=== PATIENT | female | born 1990 | race Caucasian/White ===

== ENCOUNTER → 2016-09-20 | Outpatient (CLI) | payer OTHER ==
[~2016-09-20] MED LIST: ACET-789 PO; ACET500C21 PO; ACYCLOVIR PO; ALPR0.25 PO; AMIT50TA3 PO; BUTA-234 PO; DIAZ-345 PO; ETONOGESTREL; GABA300C PO; LISD30CA PO; MECL-124 PO; OXYC-12 PO; OXYC-202 PO; PANT40SU PO; SUCR1TAB36 PO; TEMA30CA6 PO; TIZA4TAB55 PO; TOPI100T11 PO; TOPI200T8 PO; TRM50T PO; VALA500T4 PO; ZOLP10TA5 PO
--- NOTE | 2016-09-20 14:30 | Diagnostic Imaging Report ---
Transabdominal and transvaginal pelvic ultrasound. INDICATION: Pelvic pain. FINDINGS: The uterus is 6.6 x 3.4 x 3 cm. The endometrial stripe is 0.6 cm in thickness. There is an IUD in place and appears to be in good position. The right ovary is 1.9 x 3.6 x 2.2 cm. The left ovary is 3 x 2.2 x 1.8 cm. There is a 1.7 x 1.5 x 1.7 cm simple-appearing left adnexal cyst, questionably separate from the ovary or exophytic. It does not have a concerning solid component however. The right ovary demonstrates an arterial waveform and the left ovary demonstrates arterial and venous waveforms. No adnexal solid mass or significant fluid collection seen. IMPRESSION: Simple-appearing left adnexal cyst inferior to the left ovary could be an exophytic, ovarian, or extraovarian cyst. No suspicious solid component is seen. Dictated by: Dictated on workstation # [id number]
== END ==
LOC: RAD 13:29
PROVIDERS: ATTEND Nurse Practitioner Family
DX: R10.2 Pelvic and perineal pain (principal); N83.202 Unspecified ovarian cyst, left side; N89.8 Other specified noninflammatory disorders of vagina
CPT/HCPCS: 76830; 76856

== ENCOUNTER 2016-10-06 14:13 | Outpatient (CLI) | payer OTHER ==
[~2016-10-06] VITALS: Ht 165.1 cm; Wt 94.4 kg
[~2016-10-06 14:13] MED LIST changes: -OXYC-202 PO; -TOPI100T11 PO; -ZOLP10TA5 PO
[2016-10-06 14:19] VITALS: BP 120/72
[2016-10-06] MEDS ORDERED: ZOLP10TA5 PO (14:25)
[2016-10-06] MEDS ORDERED: TOPI100T11 PO (14:25)
[2016-10-06 15:27] LABS: BASOPHILS % (AUTO) 0 % (0-10); EOSINOPHILS # (AUTO) 0.2 10^3/uL (0.0-0.3); EOSINOPHILS % (AUTO) 2 % (0-10); LYMPHOCYTES # (AUTO) 2.9 X 10^3 (1.0-4.0); LYMPHOCYTES % (AUTO) 32 % (12-44); MEAN CORPUSCULAR HEMOGLOBIN 29 PG (25-34); MEAN CORPUSCULAR HGB CONC 33 G/DL (32-36); MEAN CORPUSCULAR VOLUME 88 FL (80-99); MEAN PLATELET VOLUME 10.1 FL (7.4-10.4); MONOCYTES # (AUTO) 0.6 X 10^3 (0.0-1.0); MONOCYTES % (AUTO) 7 % (0-12); NEUTROPHILS # (AUTO) 5.3 X 10^3 (1.8-7.8); NEUTROPHILS % (AUTO) 59 % (42-75); PLATELET COUNT 364 10^3/uL (130-400); RED BLOOD COUNT 4.52 10^6/uL (4.35-5.85)
[2016-10-13] MEDS ORDERED: OXYC-202 PO (10:32)
== END 2016-10-06 14:40 | disposition home or self-care (01) ==
LOC: PREOP 14:13
PROVIDERS: ATTEND Obstetrics & Gynecology
DX: Z01.812 Encounter for preprocedural laboratory examination (principal); Z11.2 Encounter for screening for other bacterial diseases; R10.2 Pelvic and perineal pain; D64.9 Anemia, unspecified
CPT/HCPCS: 36415; 85025; 87081

== ENCOUNTER 2016-10-13 10:36 | Day surgery (SDC) | payer OTHER ==
[~2016-10-13] VITALS: Ht 165.1 cm; Wt 94.4 kg
--- NOTE | 2016-10-13 10:29 | Progress Note-Pre Operative ---
Pre-Operative Progress Note H&P Reviewed The H&P was reviewed, patient examined and no changes noted. Date H&P Reviewed: Oct 13, 2016 Time H&P Reviewed: 10:29 Pre-Operative Diagnosis: chronic pelvic pain/left adnexal mass KELLEE TADEO MD Oct 13, 2016 10:29 am
--- NOTE | 2016-10-13 10:33 | Discharge Instructions ---
Discharge Instructions Discharge Medications New, Converted or Re-Newed RX: RX on Chart Patient Instructions Patient Instructions: as directed Return to The Hospital For: as directed Activity & Diet Discharge Diet: No Restrictions Activity as Tolerated: No Orders-Post D/C & Referrals Follow Up Appt: Call to make follow up appt. for patient in 1 weeks. Activity: Rest for 24 hours, than as tolerated. Wound Care: May remove Band-Aid tomorrow. Replace as desired. Keep incisions clean and dry. Wash daily with soap and water. Diet: As tolerated-Clear Liquids only if nauseated. May shower or tub bathe as desired. No driving for 24 hours, no alcoholic beverages for 24 hours, and nothing per vagina (no tampons, douching, or intercourse) for 2 weeks. Patient to return to the clinic as soon as possible for: Temperature greater than 101F, Severe Pain, Foul discharge from incision or vagina, Excessive Bleeding (more than a period). KELLEE TADEO MD Oct 13, 2016 10:33 am
[~2016-10-13 10:36] MED LIST changes: +D5 LR IV SOLUTION 1,000 ML IV SCH; +ESTROGENS CONJ IV 25 MG/5 ML (PREMARIN) VIAL IVP ONE; +MEPERIDINE (DEMEROL) INJ 100 MG/ML IM ONE; +ONDANSETRON 4 MG/2 ML (SDV) Z0FRAN IVP PRN; +OXYC-202 PO; +PROMETHAZINE INJ 25 MG/ML (PHENERGAN) AMP IM ONE; +TOPI100T11 PO; +ZOLP10TA5 PO; +oxyCODONE/APAP 10/325MG (PERCOCET 10) TABLET PO PRN
[2016-10-13] MEDS ORDERED: FAMOTIDINE 20MG/2ML IV (PEPCID) IV ONE (11:15)
[2016-10-13] MEDS ORDERED: ceFAZolin 1,000 MG (ANCEF) VIAL ONE (11:17)
[2016-10-13] MEDS ORDERED: NS (IVPB) 50 ML ONE (11:17)
[2016-10-13] MEDS ORDERED: ceFAZolin 1 GM/NS 50 ML IVPB IV ONE ×2 (11:45)
[2016-10-13] MEDS ORDERED: CATHETER FLUSH 10 ML SYR IV PRN (11:45)
[2016-10-13] MEDS: LACTATED RINGERS 1,000 ML IV PRN ×2 (11:52→12:50)
[2016-10-13] MEDS ORDERED: MIDAZOLAM 2 MG/2 ML (VERSED) VIAL ONE (12:05)
[2016-10-13] MEDS ORDERED: DEXAMETHASONE PF 10 MG/ML (DECADRON) VIAL ONE (12:05)
[2016-10-13] MEDS ORDERED: ROCURONIUM 50 MG/5 ML (ZEMURON) VIAL IV ONE (12:05)
[2016-10-13] MEDS ORDERED: ONDANSETRON 4 MG/2 ML (SDV) Z0FRAN ONE (12:05)
[2016-10-13] MEDS ORDERED: proPOfol 200 MG/20 ML (DIPRIVAN) VIAL IV ONE (12:05)
[2016-10-13] MEDS ORDERED: LACTATED RINGERS 1,000 ML IV ONE ×2 (12:05→13:04)
[2016-10-13] MEDS ORDERED: SEVOFLURANE (ULTANE) 15 ML INHAL SOLN ONE ×4 (12:05→13:04)
[2016-10-13] MEDS ORDERED: LIDOCAINE PF 2% 10 ML (XYLOCAINE) AMP ONE (12:05)
[2016-10-13] MEDS ORDERED: fentaNYL INJECTION 100 MCG/2 ML AMP ONE ×2 (12:06→13:32)
[2016-10-13] MEDS ORDERED: BUP/EPI 0.25% 1:200,000 (MARCAINE) 30 ML VIAL ONE (12:45)
[2016-10-13 13:16] VITALS: BP 102/67
[2016-10-13] MEDS ORDERED: GLYCOPYRROLATE 0.2 MG/ML (ROBINUL) 2 ML VIAL ONE (13:16)
[2016-10-13] MEDS ORDERED: NEOSTIGMINE (BLOXIVERZ ) 1 MG/1ML 10 ML VIAL ONE (13:16)
[2016-10-13] MEDS ORDERED: MEPERIDINE (DEMEROL) INJ 50 MG/ML IVP PRN (14:00)
[2016-10-13] MEDS ORDERED: ONDANSETRON 4 MG/2 ML (SDV) Z0FRAN IVP PRN (14:00)
[2016-10-13] MEDS: morphine INJ 10 MG/ML 1ML (SYR OR VIAL) IVP PRN ×2 (14:05→14:10)
[2016-10-13] MEDS ORDERED: WATER (STERILE) FOR INJECTION 10 ML ONE (14:06)
[2016-10-13] MEDS ORDERED: morphine INJ 10 MG/ML 1ML (SYR OR VIAL) ONE (14:06)
[2016-10-13] MEDS ORDERED: ESTROGENS CONJ IV 25 MG/5 ML (PREMARIN) VIAL ONE (14:06)
[2016-10-13 14:50] VITALS: BP 117/72
[2016-10-13 15:35] VITALS: BP 99/63
--- NOTE | 2016-10-17 10:56 | OPERATIVE REPORT ---
PROCEDURE PHYSICIAN: KELLEE TADEO DATE OF PROCEDURE: 10/13/2016 DATE OF DICTATION: 10/13/2016 PREOPERATIVE DIAGNOSIS: 1. Chronic pelvic pain. 2. Left pelvic mass. POSTOPERATIVE DIAGNOSES: 1. Chronic pelvic pain. 2. Left pelvic mass. 3. Endometriosis. 4. Bilateral distal fallopian tube cyst. OPERATIVE PROCEDURE: Laparoscopic bilateral tubal cystectomies and destruction of endometriosis and biopsy of right ovarian fossae. OPERATIVE DESCRIPTION: With the patient in the supine position, under satisfactory general anesthesia a speculum was placed in the vagina. The cervix was exposed and examined and it appeared normal. Manipulation of the uterus was accomplished with sponge stick in the vagina rather than placed in the uterine manipulator as the patient had a Copper T IUD in place. The patient was brought in low dorsal lithotomy position. The bladder had been drained with a straight catheter. And a 5 mm incision made in patient's left upper quadrant and 12 mm incision in the inferior margin of the umbilicus and two 5 mm incisions approximately 3 cm apart just superior to the symphysis pubis. Veress needle was placed through the left upper quadrant incision, correct placement confirmed with the water drop test. The abdomen insufflated 2.4 liters of carbon dioxide and the Veress needle was removed and a 5 mm Optiview laparoscopic port placed through the left upper quadrant incision. The patient placed in Trendelenburg. A 12 mm port was placed through the umbilical incision and two 5 mm ports was placed suprapubically. Two ports were used for retraction and exposure. The pelvis was examined. There was approximately 1 cm right distal fallopian tube cyst. There was approximately a 3 cm left distal fallopian tube cyst. This appeared to be actually torsing the fallopian tube at this point. I suspect that there was some intermittent torsion there. There was an Davon Master window on the right with a nodular lesion likely of endometriosis and right ovarian fossa. There were endometriosis implants otherwise in the right ovarian fossa in a couple on the left. The endometriosis implants were touched with electrocautery and destroyed and the nodular implant in the bottom in Davon Master window was elevated and dissected. The peritoneum was dissected free removing that piece of tissue to send to pathology. The right fallopian tube cyst was grasped and very careful and meticulously dissected free from the fallopian tube and brought out through the umbilical port and sent to pathology, labeled as right distal fallopian tube cyst. The left fallopian tube was examined. The fimbria of the left fallopian tube probably 50% was draped over the cyst and then incision was made in an area between the ovary and the fallopian tube and then dissection was carried under the peritoneum basically shelling the cyst out with minimal trauma to the fallopian tube. It is likely a small portion of fallopian tube fimbria were removed with a portion of this cyst as it was fairly extensively involved over the cyst. There was essentially no bleeding. That cyst was put in an Endobag and brought out through the umbilical incision. The pelvis was irrigated, examined for hemostasis. That being complete, with no further remaining abnormal pathology the procedure was terminated. The operative instruments were removed under direct vision as were the ports. The port sites had been infiltrated with 0.25% Marcaine with epinephrine prior to incision and port placement. The incisions were now closed with interrupted sutures of 3-0 nylon. The umbilical incision was closed with [id number] suture of 2-0 Vicryl prior to skin closure. A speculum replaced in the vagina. The cervix examined it was intact and appeared normal as the IUD string was present was approximately 2.5 cm in length just as it was prior to the procedure. Sponge and needle counts were correct at the end of procedure. Estimated blood loss for procedure was minimal. The patient tolerated the procedure well, and was transferred to recovery room in stable condition with plans for discharge home Job ID: [id number] Dictated Date: 10/13/2016 13:39:28 Senior Coldfusion Developer Date: 10/17/2016 10:19:21 / soledad
== END 2016-10-13 17:35 | disposition home or self-care (01) ==
LOC: SDC 10:36 → 4TH 15:03 → SDC 17:35
PROVIDERS: ATTEND Obstetrics & Gynecology
DX: N83.8 Other noninflammatory disorders of ovary, fallopian tube and broad ligament (principal); N80.1 Endometriosis of ovary
CPT/HCPCS: 84703; 88305

== ENCOUNTER 2017-06-08 02:27 | Emergency (ER) | payer OTHER ==
[~2017-06-08] VITALS: Ht 165.1 cm; Wt 108.0 kg
[~2017-06-08 02:27] MED LIST changes: -D5 LR IV SOLUTION 1,000 ML IV SCH; -ESTROGENS CONJ IV 25 MG/5 ML (PREMARIN) VIAL IVP ONE; -MEPERIDINE (DEMEROL) INJ 100 MG/ML IM ONE; -ONDANSETRON 4 MG/2 ML (SDV) Z0FRAN IVP PRN; -PROMETHAZINE INJ 25 MG/ML (PHENERGAN) AMP IM ONE; -oxyCODONE/APAP 10/325MG (PERCOCET 10) TABLET PO PRN
--- OUTSIDE RECORDS SUMMARY | 2017-06-08 02:34 | XMS REPORT ---
Author Author NEREYDA SMITH Organization [facility] Address [address] [place] [address] Care Team Providers Care Engineering Project Designer Name Role Phone MARY SMITHNETTE Unavailable PROBLEMS Type Condition ICD9-CM Code [id number] Code Onset Dates Condition Status SNOMED Code Problem Pain in unspecified shoulder M25.519 Active 05649808 Problem Chronic headaches R51 Active 344103336 Problem ADD (attention deficit disorder) F90.0 Active 195941430 Problem Carpal tunnel syndrome of right wrist G56.01 Active 50005922 Problem Mastodynia N64.4 Active 12326511 Problem Pseudotumor cerebri G93.2 Active 67422636 Problem Insomnia G47.00 Active 376540470 Problem Dysthymic disorder F34.1 Active 42515331 Problem Acute anxiety F41.9 Active 22747129 ALLERGIES Substance Reaction Event Type Date Status Imitrex Unknown Drug Allergy Jun, Active Toradol Unknown Drug Allergy Jun, Active SOCIAL HISTORY No smoking Hx information available PLAN OF CARE Activity Details Follow Up 3 Months Reason:chm VITAL SIGNS Height 65 in 2016-06-12 Weight 214 lbs 2016-06-12 Temperature 98.1 degrees Fahrenheit 2016-06-12 Heart Rate 78 bpm 2016-06-12 Respiratory Rate 18 2016-06-12 BMI 35.61 kg/m2 2016-06-12 Blood pressure systolic 120 mmHg 2016-06-12 Blood pressure diastolic 80 mmHg 2016-06-12 MEDICATIONS Medication Instructions Dosage Frequency Start Date End Date Duration Status Tylenol/Codeine #3 300-30 MG Orally every 6 hrs as needed 1 tablet as needed Active Fluticasone Propionate 50 MCG/ACT Nasally Once a day 1 spray in each nostril 24h Jun, 30 day(s) Active Baclofen 10 MG Orally Three times a day 1 tablet with food or milk 8h Active Topamax 100 MG Orally Twice a day 2 tablet by Oral route 1 time per day x 8 days, then 2 per day 12h Mar, Active Zyrtec Allergy 10 MG Orally Once a day 1 tablet 24h Jun, Jul, 30 day(s) Active Ambien 10 mg Orally Once a day 1 tablet at bedtime as needed 24h Mar, 30 days Active Acyclovir 5 % Externally every 3 hrs 1 application to affected area 3h Nov, 10 days Active Diamox Sequels 500 MG Orally twice a day 1 capsule 12h Active Xanax 0.25 MG Orally Twice a day 1 tablet 12h Aug, Active Vyvanse 30 MG orally once daily TAKE ONE CAPSULE BY MOUTH ONCE DAILY 24h May, Active BusPIRone HCl 10 MG Orally Three times a day 1 tablet 8h Aug, Active Augmentin 875-125 MG Orally every 12 hrs 1 tablet 12h Jun,Jun 10 day(s) Active Acyclovir 400 MG Orally Twice a day 1 tablet 12h Nov, 10 day(s ) Active Zoloft 50 MG Orally Once a day 1 tablet 24h Aug, Active Acyclovir 800 MG Orally Once a day 1 tablet 24h Nov, 10 day(s) Active RESULTS No Results PROCEDURES Procedure Date Ordered Related Diagnosis Body Site Office Visit, Est Pt., Level 4 Jun 12, 2016 IMMUNIZATIONS No Known Immunizations
--- OUTSIDE RECORDS SUMMARY | 2017-06-08 02:34 | XMS REPORT ---
Author Author ABDELRAHMAN CACERES Organization [facility] Address [address] [place] [address] Care Team Providers Care Dry Mill Operator Name Role Phone ABDELRAHMAN CACERES Unavailable PROBLEMS Type Condition ICD9-CM Code [id number] Code Onset Dates Condition Status SNOMED Code Problem Pseudotumor cerebri G93.2 Active 18053038 Problem ADD (attention deficit disorder) F90.0 Active 399732053 Problem Chronic headaches R51 Active 769181359 Problem Carpal tunnel syndrome of right wrist G56.01 Active 58731613 Problem Mastodynia N64.4 Active 96271724 Problem Pain in unspecified shoulder M25.519 Active 90990512 Problem Insomnia G47.00 Active 035893790 Problem Acute anxiety F41.9 Active 04298725 Problem Dysthymic disorder F34.1 Active 01794591 ALLERGIES Substance Reaction Event Type Date Status Imitrex Unknown Drug Allergy Sep, Active Toradol Unknown Drug Allergy Sep, Active SOCIAL HISTORY Never Assessed PLAN OF CARE Activity Details Follow Up prn Reason: VITAL SIGNS Height 65 in 2016-10-19 Weight 204.0 lbs 2016-10-19 Temperature 97.4 degrees Fahrenheit 2016-10-19 Heart Rate 96 bpm 2016-10-19 Respiratory Rate 22 2016-10-19 BMI 33.94 kg/m2 2016-10-19 Blood pressure systolic 100 mmHg 2016-10-19 Blood pressure diastolic 68 mmHg 2016-10-19 MEDICATIONS Medication Instructions Dosage Frequency Start Date End Date Duration Status Acyclovir 800 MG Orally Once a day 1 tablet 24h Nov, 10 day(s) Active Acyclovir 400 MG Orally Twice a day 1 tablet 12h Nov, 10 day(s ) Active Topamax 100 MG Orally Twice a day 2 tablet by Oral route 1 time per day x 8 days, then 2 per day 12h Mar, Active Tylenol/Codeine #3 300-30 MG Orally every 6 hrs 1 tablet as needed 6h 28 days Active Xanax 0.25 MG Orally Twice a day 1 tablet 12h Aug, 28 days Active Acyclovir 5 % Externally every 3 hrs 1 application to affected area 3h Nov, 10 days Active BusPIRone HCl 10 MG Orally Three times a day 1 tablet 8h Aug, Active Ambien 10 mg TAKE ONE TABLET BY MOUTH ONCE DAILY AT BEDTIME NEEDED. 28 days Active Amoxicillin 875 MG Orally every 12 hrs 1 tablet 12h Sep, Sep, 10 day(s) Active Vyvanse 30 MG Orally Once a day 1 capsule in the morning 24h 07 Sep, 2016 28 days Active RESULTS Name Result Date Reference Range STREP A (IN HOUSE) 2016-10-19 STREP A negative Control + Lot # [id number] Exp date PROCEDURES Procedure Date Ordered Result Body Site STREP A ASSAY W/OPTIC October 19, 2016 IMMUNIZATIONS No Known Immunizations MEDICAL (GENERAL) HISTORY Type Description Date Medical History chronic pain - neck and hips Medical History migraine headaches Medical History herpes simplex Medical History pseudo tumor Medical History hypertension Medical History depression/anxiety Medical History Anxiety state, unspecified Medical History Depressive disorder, not elsewhere classified Medical History Attention deficit disorder of childhood without mention of hyperactivity Medical History Depression Surgical History appendectomy 2012 Surgical History tonsillectomy 1998 Surgical History dental surgery - wisdom teeth 2013 Surgical History Cyst removal 09/2016 Hospitalization History surgery
--- OUTSIDE RECORDS SUMMARY | 2017-06-08 02:34 | XMS REPORT ---
Author Author SARAH NEREYDA Organization [facility] Address [address] [place] [address] Care Team Providers Care Digital Camera Technician Name Role Phone NEREYDA SMITH Unavailable PROBLEMS Type Condition ICD9-CM Code [id number] Code Onset Dates Condition Status SNOMED Code Problem Pseudotumor cerebri G93.2 Active 47612583 Problem ADD (attention deficit disorder) F90.0 Active 075776522 Problem Chronic headaches R51 Active 713579986 Problem Carpal tunnel syndrome of right wrist G56.01 Active 57771916 Problem Mastodynia N64.4 Active 96541854 Problem Pain in unspecified shoulder M25.519 Active 97281700 Problem Insomnia G47.00 Active 572286102 Problem Acute anxiety F41.9 Active 61650324 Problem Dysthymic disorder F34.1 Active 25321538 ALLERGIES No Information SOCIAL HISTORY Never Assessed PLAN OF CARE VITAL SIGNS MEDICATIONS Medication Instructions Dosage Frequency Start Date End Date Duration Status Ambien 10 mg TAKE ONE TABLET BY MOUTH ONCE DAILY AT BEDTIME NEEDED. 28 days Active Vyvanse 30 MG orally once daily TAKE ONE CAPSULE BY MOUTH ONCE DAILY 24h Aug, 28 days Active Xanax 0.25 MG Orally Twice a day 1 tablet 12h Aug, 28 days Active Tylenol/Codeine #3 300-30 MG Orally every 6 hrs 1 tablet as needed 6h 28 days Active RESULTS No Results PROCEDURES No Known procedures IMMUNIZATIONS No Known Immunizations MEDICAL (GENERAL) HISTORY [...]
--- OUTSIDE RECORDS SUMMARY | 2017-06-08 02:35 | XMS REPORT ---
Author Author NEREYDA SMITH Organization [facility] Address [address] [place] [address] Care Team Providers Care Paper Production Engineer Name Role Phone FARIBA SMITHE Unavailable PROBLEMS Type Condition ICD9-CM Code FAD13-DI Code Onset Dates Condition Status SNOMED Code Problem Pseudotumor cerebri G93.2 Active 05358517 Problem ADD (attention deficit disorder) F90.0 Active 911989207 Problem Chronic headaches R51 Active 077148794 Problem Carpal tunnel syndrome of right wrist G56.01 Active 25432089 Problem Mastodynia N64.4 Active 70272706 Problem Pain in unspecified shoulder M25.519 Active 00074218 Problem Insomnia G47.00 Active 687844548 Problem Acute anxiety F41.9 Active 96256089 Problem Dysthymic disorder F34.1 Active 14556648 ALLERGIES No Information SOCIAL HISTORY Never Assessed PLAN OF CARE VITAL SIGNS MEDICATIONS Medication Instructions Dosage Frequency Start Date End Date Duration Status Vyvanse 30 MG Orally Once a day 1 capsule in the morning 24h Nov, 28 days Active Tylenol/Codeine #3 300-30 MG Orally every 6 hrs 1 tablet as needed 6h 28 Active Ambien 10 mg TAKE ONE TABLET BY MOUTH ONCE DAILY AT BEDTIME NEEDED. 28 Active RESULTS No Results PROCEDURES No Known [...] hyperactivity Medical History Depression Surgical History appendectomy 2013 Surgical History tonsillectomy 1998 Surgical History dental surgery - wisdom teeth 2014 Surgical History Cyst removal 09/2016 Hospitalization History surgery
--- OUTSIDE RECORDS SUMMARY | 2017-06-08 02:35 | XMS REPORT ---
Author Author NEREYDA SMITH Organization [facility] Address [address] [place] [address] Care Team Providers Care Pharmacy Resident Name Role Phone NEREYDA SMITH Unavailable PROBLEMS Type Condition ICD9-CM Code AYA32-FK Code Onset Dates Condition Status SNOMED Code Problem Pain in unspecified shoulder M25.519 Active 90470308 Problem Chronic headaches R51 Active 047837555 Problem ADD (attention deficit disorder) F90.0 Active 192217318 Problem Carpal tunnel syndrome of right wrist G56.01 Active 82550171 Problem Mastodynia N64.4 Active 62934829 Problem Pseudotumor cerebri G93.2 Active 39885124 Problem Insomnia G47.00 Active 654651853 Problem Dysthymic disorder F34.1 Active 07553576 Problem Acute anxiety F41.9 Active 40512169 ALLERGIES Unknown Allergies SOCIAL HISTORY No smoking Hx information available PLAN OF CARE VITAL SIGNS MEDICATIONS Medication Instructions Dosage Frequency Start Date End Date Duration Status Vyvanse 30 MG orally once daily TAKE ONE CAPSULE BY MOUTH ONCE DAILY 24h May, 28 days Active RESULTS No Results PROCEDURES No Known procedures IMMUNIZATIONS No Known Immunizations
--- OUTSIDE RECORDS SUMMARY | 2017-06-08 02:35 | XMS REPORT ---
Author Author NEREYDA SMITH Organization [facility] Address [address] [place] [address] Care Team Providers Care Tube Rebuilder Name Role Phone SARAH NEREYDA Unavailable PROBLEMS Type Condition ICD9-CM Code VUZ45-TY Code Onset Dates Condition Status SNOMED Code Problem Pseudotumor cerebri G93.2 Active 64398298 Problem ADD (attention deficit disorder) F90.0 Active 317598216 Problem Chronic headaches R51 Active 646967653 Problem Carpal tunnel syndrome of right wrist G56.01 Active 02463225 Problem Mastodynia N64.4 Active 42660859 Problem Pain in unspecified shoulder M25.519 Active 82027994 Problem Insomnia G47.00 Active 580544228 Problem Acute anxiety F41.9 Active 09930806 Problem Dysthymic disorder F34.1 Active 01892035 ALLERGIES No Information SOCIAL HISTORY Never Assessed PLAN OF CARE VITAL SIGNS MEDICATIONS Unknown Medications RESULTS No Results PROCEDURES No Known procedures [...]
--- OUTSIDE RECORDS SUMMARY | 2017-06-08 02:35 | XMS REPORT ---
Author Author NEREYDA SMITH Organization [facility] Address [address] [place] [address] Care Team Providers Care Construction Materials Tester Name Role Phone MARY SMITHNETTE Unavailable PROBLEMS Type Condition ICD9-CM Code [id number] Code Onset Dates Condition Status SNOMED Code Problem Pseudotumor cerebri G93.2 Active 59162405 Problem ADD (attention deficit disorder) F90.0 Active 440961590 Problem Chronic headaches R51 Active 453848372 Problem Carpal tunnel syndrome of right wrist G56.01 Active 00700580 Problem Mastodynia N64.4 Active 47100375 Problem Pain in unspecified shoulder M25.519 Active 55503484 Problem Insomnia G47.00 Active 842043180 Problem Acute anxiety F41.9 Active 18173819 Problem Dysthymic disorder F34.1 Active 00403792 ALLERGIES Unknown Allergies SOCIAL HISTORY No smoking Hx information available PLAN OF CARE VITAL SIGNS MEDICATIONS Medication Instructions Dosage Frequency Start Date End Date Duration Status Ambien 10 mg TAKE ONE TABLET BY MOUTH ONCE DAILY AT BEDTIME NEEDED. 30 Active Xanax 0.25 MG Orally Twice a day 1 tablet 12h Aug, Active Tylenol/Codeine #3 300-30 MG Orally every 6 hrs as needed 1 tablet as needed Active Vyvanse 30 MG orally once daily TAKE ONE CAPSULE BY MOUTH ONCE DAILY 24h 24 Jul, 2016 28 days Active RESULTS No Results PROCEDURES No Known procedures IMMUNIZATIONS No Known Immunizations
--- OUTSIDE RECORDS SUMMARY | 2017-06-08 02:35 | XMS REPORT ---
Author Author NEREYDA SMITH Organization [facility] Address [address] [place] [address] Care Team Providers Care Freight Manager Name Role Phone SARAH NEREYDA Unavailable PROBLEMS Type Condition ICD9-CM Code NEW27-ZF Code Onset Dates Condition Status SNOMED Code Problem Pseudotumor cerebri G93.2 Active 59835156 Problem ADD (attention deficit disorder) F90.0 Active 137537362 Problem Chronic headaches R51 Active 434777467 Problem Carpal tunnel syndrome of right wrist G56.01 Active 42656648 Problem Mastodynia N64.4 Active 89200377 Problem Pain in unspecified shoulder M25.519 Active 57307718 Problem Insomnia G47.00 Active 599492635 Problem Acute anxiety F41.9 Active 14863402 Problem Dysthymic disorder F34.1 Active 97787383 ALLERGIES No Information SOCIAL HISTORY Never Assessed PLAN OF CARE VITAL SIGNS MEDICATIONS Medication Instructions Dosage Frequency Start Date End Date Duration Status Vyvanse 30 MG Orally Once a day 1 capsule in the morning 24h October, 28 days Active RESULTS No Results PROCEDURES [...]
--- OUTSIDE RECORDS SUMMARY | 2017-06-08 02:35 | XMS REPORT ---
Author Author ABDELRAHMAN CACERES Organization [facility] Address [address] [place] [address] Care Team Providers Care Joint Cutter Name Role Phone ABDELRAHMAN CACERES Unavailable PROBLEMS Type Condition ICD9-CM Code HSO88-RC Code Onset Dates Condition Status SNOMED Code Problem Pseudotumor cerebri G93.2 Active 77607701 Problem ADD (attention deficit disorder) F90.0 Active 648119895 Problem Chronic headaches R51 Active 707299327 Problem Carpal tunnel syndrome of right wrist G56.01 Active 85300303 Problem Mastodynia N64.4 Active 89266866 Problem Pain in unspecified shoulder M25.519 Active 25715715 Problem Insomnia G47.00 Active 810753797 Problem Acute anxiety F41.9 Active 58484157 Problem Dysthymic disorder F34.1 Active 74800897 ALLERGIES Substance Reaction Event Type Date Status Imitrex Unknown Drug Allergy Aug, Active Toradol Unknown Drug Allergy Aug, Active SOCIAL HISTORY Never Assessed PLAN OF CARE Activity Details Follow Up prn Reason: VITAL SIGNS Height 65 in 2016-09-05 Weight 209 lbs 2016-09-05 Temperature 98.8 degrees Fahrenheit 2016-09-05 Heart Rate 68 bpm 2016-09-05 Respiratory Rate 16 2016-09-05 BMI 34.78 kg/m2 2016-09-05 Blood pressure systolic 102 mmHg 2016-09-05 Blood pressure diastolic 70 mmHg 2016-09-05 MEDICATIONS Medication Instructions Dosage Frequency Start Date End Date Duration Status Topamax 100 MG Orally Twice a day 2 tablet by Oral route 1 time per day x 8 days, then 2 per day 12h 02 Mar, 2014 Active Acyclovir 400 MG Orally Twice a day 1 tablet 12h 30 Nov, 2014 10 day(s ) Active Acyclovir 800 MG Orally Once a day 1 tablet 24h 30 Nov, 2014 10 day(s) Active Tylenol/Codeine #3 300-30 MG Orally every 6 hrs 1 tablet as needed 6h 28 days Active Acyclovir 5 % Externally every 3 hrs 1 application to affected area 3h 30 Nov, 2014 10 days Active PredniSONE 20 MG Orally Once a day 1 tablet 24h Aug, Aug, 5 days Active Xanax 0.25 MG Orally Twice a day 1 tablet 12h Aug, 28 days Active BusPIRone HCl 10 MG Orally Three times a day 1 tablet 8h Aug, Active Vyvanse 30 MG orally once daily TAKE ONE CAPSULE BY MOUTH ONCE DAILY 24h 22 Aug, 2016 28 days Active Ambien 10 mg TAKE ONE TABLET BY MOUTH ONCE DAILY AT BEDTIME NEEDED. 28 days Active RESULTS No Results PROCEDURES [...]
--- OUTSIDE RECORDS SUMMARY | 2017-06-08 02:36 | XMS REPORT ---
Author Author NEREYDA SMITH [facility] Address [address] [place] [address] Care Team Providers Care Trade Mark Examiner Name Role Phone FARIBA SMITHE Unavailable PROBLEMS Type Condition ICD9-CM Code RXR20-FB Code Onset Dates Condition Status SNOMED Code Problem Pseudotumor cerebri G93.2 Active 61187313 Problem ADD (attention deficit disorder) F90.0 Active 826017309 Problem Chronic headaches R51 Active 079839916 Problem Carpal tunnel syndrome of right wrist G56.01 Active 48357968 Problem Mastodynia N64.4 Active 84564315 Problem Pain in unspecified shoulder M25.519 Active 77720790 Problem Insomnia G47.00 Active 663792548 Problem Acute anxiety F41.9 Active 69938195 Problem Dysthymic disorder F34.1 Active 39612265 ALLERGIES Substance Reaction Event Type Date Status Imitrex Unknown Drug Allergy Aug, Active Toradol Unknown Drug Allergy Aug, Active SOCIAL HISTORY Never Assessed PLAN OF CARE Activity Details Follow Up 2 Weeks Reason:wrist pain VITAL SIGNS Height 65 in 2016-09-11 Weight 205.8 lbs 2016-09-11 Temperature 97.8 degrees Fahrenheit 2016-09-11 Heart Rate 72 bpm 2016-09-11 Respiratory Rate 18 2016-09-11 BMI 34.24 kg/m2 2016-09-11 Blood pressure systolic 100 mmHg 2016-09-11 Blood pressure diastolic 71 mmHg 2016-09-11 MEDICATIONS Medication Instructions Dosage Frequency Start Date End Date Duration Status Acyclovir 400 MG Orally Twice a day 1 tablet 12h Nov, 10 day(s ) Active BusPIRone HCl 10 MG Orally Three times a day 1 tablet 8h Aug, Active Acyclovir 5 % Externally every 3 hrs 1 application to affected area 3h Nov, 10 days Active Tylenol/Codeine #3 300-30 MG Orally every 6 hrs 1 tablet as needed 6h 28 days Active Acyclovir 800 MG Orally Once a day 1 tablet 24h Nov, 10 day(s) Active Xanax 0.25 MG Orally Twice a day 1 tablet 12h Aug, 28 days Active Topamax 100 MG Orally Twice a day 2 tablet by Oral route 1 time per day x 8 days, then 2 per day 12h 02 Mar, 2014 Active Ambien 10 mg TAKE ONE TABLET BY MOUTH ONCE DAILY AT BEDTIME NEEDED. 28 days Active Vyvanse 30 MG orally once daily TAKE ONE CAPSULE BY MOUTH ONCE DAILY 24h 22 Aug, 2016 28 days Active RESULTS Name Result Date Reference Range Xray : Wrist, Right 3 views (IN HOUSE) 2016-09-11 PROCEDURES Procedure Date Ordered Result Body Site NERVE CONDUCTION STUDY- ONE HAND (IN HOUSE) 2016-09-11 NOT PERFORMED/SEE INTERNAL NOTES X-RAY EXAM OF WRIST September 11, 2016 IMMUNIZATIONS No Known Immunizations MEDICAL (GENERAL) [...]
[2017-06-08 02:58] LABS: BASOPHILS % (AUTO) 0 % (0-10); EOSINOPHILS # (AUTO) 0.2 10^3/uL (0.0-0.3); EOSINOPHILS % (AUTO) 2 % (0-10); LYMPHOCYTES # (AUTO) 3.4 X 10^3 (1.0-4.0); LYMPHOCYTES % (AUTO) 27 % (12-44); MEAN CORPUSCULAR HEMOGLOBIN 30 PG (25-34); MEAN CORPUSCULAR HGB CONC 34 G/DL (32-36); MEAN CORPUSCULAR VOLUME 89 FL (80-99); MEAN PLATELET VOLUME 9.9 FL (7.4-10.4); MONOCYTES # (AUTO) 0.7 X 10^3 (0.0-1.0); MONOCYTES % (AUTO) 6 % (0-12); NEUTROPHILS # (AUTO) 8.4 X 10^3 (1.8-7.8); NEUTROPHILS % (AUTO) 66 % (42-75); PLATELET COUNT 342 10^3/uL (130-400); RED BLOOD COUNT 4.59 10^6/uL (4.35-5.85); RED CELL DISTRIBUTION WIDTH 13.2 % (10.0-14.5); WHITE BLOOD COUNT 12.8 10^3/uL (4.3-11.0)
[2017-06-08 03:15] LABS: BILIRUBIN,URINE NEGATIVE (NEGATIVE); KETONES,URINE NEGATIVE (NEGATIVE); LEUKOCYTE ESTERASE ,URINE NEGATIVE (NEGATIVE); NITRITE,URINE NEGATIVE (NEGATIVE); PH,URINE 6 (5-9); PROTEIN,URINE 1+ (NEGATIVE); UROBILINOGEN,URINE NORMAL (NORMAL)
[2017-06-08 03:27] LABS: WBC,URINE RARE /HPF
--- NOTE | 2017-06-08 04:11 | ED GU-Female ---
General Chief Complaint: -Female Stated Complaint: VAG BLEEDING,9 WKS PREG Nursing Triage Note: VAGINAL BLEEDING APPROX. 9WEEKS Nursing Sepsis Screen: No Definite Risk Source: patient Exam Limitations: no limitations History of Present Illness Time seen by provider: 02:35 Initial Comments This 27-year-old young lady at about 9 weeks gestational age presents to the emergency room with vaginal bleeding. She denies any pain or cramping. She is a patient Dr. Collado and has had a transvaginal ultrasound performed in the office. She reports a single live intrauterine with a heart rate of 171. Bleeding started around 01:50 this morning. She denies any intercourse or other activity that would have caused bleeding. She states the flow is less than a menstrual period. Allergies and Home Medications Allergies Coded Allergies: ketorolac (Verified Allergy, Unknown, made migraine worse, 02/10/16) sumatriptan (Verified Allergy, Unknown, 12/16/13) Worsening headache sumatriptan succinate (Verified Allergy, Unknown, 12/16/13) Worsening headache Constitutional: no symptoms reported EENTM: no symptoms reported Respiratory: no symptoms reported Cardiovascular: no symptoms reported Gastrointestinal: no symptoms reported Genitourinary: see HPI : Yes Musculoskeletal: no symptoms reported Skin: no symptoms reported Psychiatric/Neurological: No Symptoms Reported Endocrine: No Symptoms Reported Past Eausdlw-Ikjfdc-Jzvryo Hx Patient Social History Alcohol Use: Denies Use Recreational Drug Use: No Smoking Status: Former Smoker Former Smoker, Quit: Sep 05, 2016 Recent Foreign Travel: No Contact w/Someone Who Travel: No Recent Infectious Disease Expo: No Recent Hopitalizations: No Immunizations Up To Date Tetanus Booster (TDap): Less than 5yrs Date of Influenza Vaccine: Mar 11, 2012 Seasonal Allergies Seasonal Allergies: Yes Surgeries History of Surgeries: Yes Surgeries: Adenoidectomy, Appendectomy, Cystectomy, Tonsillectomy Respiratory History of Respiratory Disorde: No Cardiovascular History of Cardiac Disorders: No Neurological History of Neurological Disord: Yes (pseudotumor cerebri) Neurological Disorders: Headaches /Migraines Reproductive System : Yes Last Menstrual Period: Apr 04, 2017 Hx Reproductive Disorders: Yes (left adnexa cyst) Sexually Transmitted Disease: No HIV/AIDS: No Female Reproductive Disorders: Denies Genitourinary History of Genitourinary Disor: No Gastrointestinal History of Gastrointestinal Di: Yes Gastrointestinal Disorders: Hiatal Hernia Musculoskeletal History of Musculoskeletal Dis: Yes Musculoskeletal Disorders: Chronic Back Pain Endocrine History of Endocrine Disorders: No HEENT Loss of Vision: Denies Hearing Impairment: Denies Cancer History of Cancer: No Psychosocial History of Psychiatric Problem: No Integumentary History of Skin or Integumenta: No Blood Transfusions History of Blood Disorders: No Adverse Reaction to a Blood Tr: No Physical Exam Vital Signs Vital Sign - Last 12Hours 06/08/17 02:36 Temp 98.1 Pulse 94 Resp 18 B/P (MAP) 166/87 (113) Pulse Ox 98 O2 Delivery Room Air Capillary Refill : Less Than 3 Seconds General Appearance: WD/WN, no apparent distress HEENT: normal ENT inspection Cardiovascular: regular rate, rhythm, no edema, no murmur Respiratory: lungs clear, normal breath sounds, no respiratory distress, no accessory muscle use Gastrointestinal: normal bowel sounds, non tender, soft Extremities: normal inspection 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-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 nml as tested, no motor/sensory deficits, alert, normal mood/affect, oriented x 3 Skin: normal color, warm/dry Progress/Results/Core Measures Suspected Sepsis Recent Fever Within 48 Hours: No Infection Criteria Present: None New/Unexplained Altered Menta: No Sepsis Screen: No Definite Risk Sepsis Diagnosis: SIRS Temperature:98.1 Pulse: 94 Respiratory Rate: 18 Laboratory Tests 06/08/17 02:50: White Blood Count 12.8H Blood Pressure 166 /87 Mean: 113 Laboratory Tests 06/08/17 02:50: Platelet Count 342 Results/Orders Lab Results Laboratory Tests Test 06/08/17 02:50 06/08/17 03:10 Range/Units White Blood Count 12.8 H 4.3-11.0 10^3/uL Red Blood Count 4.59 4.35-5.85 10^6/uL Hemoglobin 13.8 11.5-16.0 G/DL Hematocrit 41 35-52 % Mean Corpuscular Volume 89 80-99 FL Mean Corpuscular Hemoglobin 30 25-34 PG Mean Corpuscular Hemoglobin Concent 34 32-36 G/DL Red Cell Distribution Width 13.2 10.0-14.5 % Platelet Count 342 130-400 10^3/uL Mean Platelet Volume 9.9 7.4-10.4 FL Neutrophils (%) (Auto) 66 42-75 % Lymphocytes (%) (Auto) 27 12-44 % Monocytes (%) (Auto) 6 0-12 % Eosinophils (%) (Auto) 2 0-10 % Basophils (%) (Auto) 0 0-10 % Neutrophils # (Auto) 8.4 H 1.8-7.8 X 10^3 Lymphocytes # (Auto) 3.4 1.0-4.0 X 10^3 Monocytes # (Auto) 0.7 0.0-1.0 X 10^3 Eosinophils # (Auto) 0.2 0.0-0.3 10^3/uL Basophils # (Auto) 0.0 0.0-0.1 10^3/uL Human Chorionic Gonadotropin, Quant [id number] H <5 MIU/ML Urine Color YELLOW Urine Clarity SLIGHTLY CLOUDY Urine pH 6 5-9 Urine Specific [place] 1.020 1.016-1.022 Urine Protein 1+ H NEGATIVE Urine Glucose (UA) NEGATIVE NEGATIVE Urine Ketones NEGATIVE NEGATIVE Urine Nitrite NEGATIVE NEGATIVE Urine Bilirubin NEGATIVE NEGATIVE Urine Urobilinogen NORMAL NORMAL MG/DL Urine Leukocyte Esterase NEGATIVE NEGATIVE Urine RBC (Auto) 5+ H NEGATIVE Urine RBC 2-5 H /HPF Urine WBC RARE /HPF Urine Squamous Epithelial Cells 10-25 H /HPF Urine Crystals NONE /LPF Urine Bacteria TRACE /HPF Urine Casts NONE /LPF Urine Mucus MODERATE H /LPF Urine Culture Indicated NO My Orders Orders - YAJAIRA COTE MD Cbc With Automated Diff (06/08/17 02:41) Hcg,Quantitative (06/08/17 02:41) Abo Rh Type (06/08/17 02:41) Ua Culture If Indicated (06/08/17 02:41) Vital Signs/I&O Vital Sign - Last 12Hours 06/08/17 02:36 Temp 98.1 Pulse 94 Resp 18 B/P (MAP) 166/87 (113) Pulse Ox 98 O2 Delivery Room Air Capillary Refill : Less Than 3 Seconds Blood Pressure Mean: 113 Progress Note : Progress Note HCG level was appropriate for gestational age. Patient denied having any pain and stated a normal intrauterine was identified in the office by ultrasound. Emergent ultrasound was not felt necessary. Patient was directed to follow-up with Dr. Collado in the morning for confirmation of viability. Departure Impression Impression: Primary Impression: Threatened miscarriage in early Additional Impression: Vaginal bleeding in Disposition: 01 HOME, SELF-CARE Condition: Improved Departure-Patient Inst. Decision time for Depature: 04:00 Referrals: ISAAC DURAN DO (PCP) Primary Care Physician NEREYDA SMITH (Family) Primary Care Physician Patient Instructions: Threatened Miscarriage Add. Discharge Instructions: Follow-up with Dr. Collado later this morning [phone]. Return to care if symptoms worsen or if you develop new symptoms such as abdominal pain, fever, vomiting, etc. Observe vaginal rest until otherwise instructed by Dr. Collado. All discharge instructions reviewed with patient and/or family. Voiced understanding. Copy Copies To 1: KELLEE COLLADO MD, JOSHUA T MD Jun 08, 2017 04:11
[2017-06-08 04:15] VITALS: BP 154/68
== END 2017-06-08 04:13 | disposition home or self-care (01) ==
LOC: EDUNIT# 02:27 → ER 02:29
DX: O20.0 Threatened abortion (principal); O99.351 Diseases of the nervous system complicating pregnancy, first trimester; Z90.89 Acquired absence of other organs; Z90.49 Acquired absence of other specified parts of digestive tract; Z87.891 Personal history of nicotine dependence; Z3A.09 9 weeks gestation of pregnancy
CPT/HCPCS: 36415; 81000; 84702; 85025; 86900; 86901; 99283

== ENCOUNTER 2017-12-26 12:55 | Inpatient (IN) | payer OTHER ==
[~2017-12-26] VITALS: Ht 165.1 cm; Wt 112.9 kg
[2017-12-26] VITALS (18 sets, daily range): BP systolic 105–142; BP diastolic 55–81
--- OUTSIDE RECORDS SUMMARY | 2017-12-26 13:09 | XMS REPORT | Clinical Summary ---
Author Author [facility] Organization [facility] Address Unknown Phone Unavailable Care Team Providers Care Project Superintendent Name Role Phone Jose Greenwood MD Unavailable Cristofer Garcia MD PCP Source Comments Some departments are not documenting in the electronic medical record. If you do not see the information that you expected, contact Release of Information in the Health Information Management department at [phone] for further assistance in locating additional records.[facility] Allergies Active Allergy Reactions Severity Noted Date Comments Sumatriptan Succinate SHORTNESS OF BREATH 02/17/2014 Ketorolac SHORTNESS OF BREATH Medium 09/03/2017 Current Medications Prescription Sig. Disp. Refills Start End Date Status Date acetaminophen (TYLENOL) Take 500 mg by mouth Active 500 mg tablet every 6 hours as needed for Pain. Max of 4,000 mg of acetaminophen in 24 hours. ALPRAZolam (XANAX) 0.25 Take 0.25 mg by mouth at Active mg tablet bedtime as needed for Anxiety. cetirizine (ZYRTEC) 1 Take 5 mg by mouth daily. Active mg/mL oral solution topiramate 100 mg CSpX Take by mouth. Active lisdexamfetamine Take 30 mg by mouth every Active (VYVANSE) 30 mg capsule morning zolpidem (AMBIEN) 10 mg Take 10 mg by mouth at Active tablet bedtime as needed for Sleep. acetaZOLAMIDE (DIAMOX Take 500 mg by mouth Active SEQUELS) 500 mg twice daily. 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 Family History Medical History Relation Name Comments Thyroid Disease Brother Diabetes Father Cataract Maternal Grandmother Hypertension Mother Thyroid Disease Mother Autoimmune Disease Other Neice Cancer Paternal Brain Tumor Grandfather Thyroid Disease Paternal Grandmother Relation Name Status Comments Brother Father Maternal Grandmother Mother Other Neice Paternal Grandfather Paternal Grandmother Social History Tobacco Use Types Packs/Day Years Used Date Former Smoker Cigarettes 1 5 Quit: 07/02/2011 Smokeless Tobacco: Never Used Alcohol Use Drinks/Week oz/Week Comments No Sex Assigned at Date Recorded Not on file Last Filed Vital Signs Vital Sign Reading Time Taken Blood Pressure 106/66 09/03/2017 10:55 AM [employer] Pulse 96 09/03/2017 10:55 AM [employer] Temperature - - Respiratory Rate - - Oxygen Saturation - - Inhaled Oxygen - - Concentration Weight 106.6 kg (235 lb) 09/13/2017 3:23 PM CDT Height 165.1 cm (5' 5") 09/13/2017 3:23 PM CDT Body Mass Index 39.11 09/13/2017 3:23 PM CDT Plan of Treatment Health Maintenance Due Date Last Done Comments PHYSICAL (COMPREHENSIVE) 1996 EXAM PERTUSSIS VACCINE 2000 HIV SCREENING 2004 TETANUS VACCINE 2006 CERVICAL CANCER SCREENING 2010 INFLUENZA VACCINE 04/01/2018 Results Not on filefrom Last 3 Months
--- OUTSIDE RECORDS SUMMARY | 2017-12-26 13:12 | XMS REPORT ---
Author Author NEREYDA Conway Organization [facility] Address [address] [place] [address] Care Team Providers Care Apprentice Instrument Technician Name Role Phone [email or web address] NEREYDA Unavailable PROBLEMS Type Condition ICD9-CM Code KYY82-IP Code Onset Dates Condition Status SNOMED Code Problem Pseudotumor cerebri G93.2 Active 52766269 Problem ADD (attention deficit disorder) F90.0 Active 988228509 Problem Chronic headaches R51 Active 876934460 Problem Carpal tunnel syndrome of right wrist G56.01 Active 59531334 Problem Mastodynia N64.4 Active 50006838 Problem Pain in unspecified shoulder M25.519 Active 71935114 Problem Insomnia G47.00 Active 919563403 Problem Acute anxiety F41.9 Active 10971052 Problem Dysthymic disorder F34.1 Active 58243709 ALLERGIES No Information ENCOUNTERS Encounter Location Date Diagnosis [facility] [id number] [place] [address] 21182- 5092 Nov, [facility] [id number] [place] [address] 34215- 9961 Nov, Pseudotumor cerebri G93.2 ; Chronic headaches R51 ; ADD ( attention deficit disorder) F90.0 ; Acute anxiety F41.9 and Insomnia G47.00 [facility] [id number] [place] [address] 99183- 6562 Nov, ADD (attention deficit disorder) F90.0 [facility] [id number] [place] [address] 25297- 2146 October, Dysthymic disorder F34.1 and ADD (attention deficit disorder ) F90.0 [facility] [id number] [place] [address] 69025 -9572 Sep, Sore throat J02.9 and Acute non-recurrent pansinusitis J01.40 [facility] [id number] [place] [address] 24450- 8833 Sep, ADD (attention deficit disorder) F90.0 [facility] [id number] [place] [address] 52374- 5280 15 Aug, 2016 [place] [address] 49703- 6956 13 Aug, 2016 Right wrist pain M25.531 [facility] [id number] [place] [address] 67886 -7532 Aug, Carpal tunnel syndrome of right wrist G56.01 [facility] [facility] [id number] [place] [address] 06641- 1098 Aug, Dysthymic disorder F34.1 ; ADD (attention deficit disorder) F90.0 and Chronic headaches R51 [facility] [facility] [id number] [place] [address] 00538- 6926 Jul, Dysthymic disorder F34.1 ; Chronic headaches R51 and ADD ( attention deficit disorder) F90.0 [facility] [facility] [id number] [place] [address] 25653- 6279 Jun, ADD (attention deficit disorder) F90.0 [facility] [facility] [id number] [place] [address] 52022- 8828 Jun, Insomnia G47.00 ; Chronic headaches R51 ; Pseudotumor cerebri G93.2 ; Dysthymic disorder F34.1 and ADD (attention deficit disorder) F90.0 [facility] [id number] [place] [address] 27685 -9108 Jun, Acute non-recurrent pansinusitis J01.40 and Gastroenteritis K52.9 [facility] [id number] [place] [address] 61775- 8527 Jun, [place] [address] [place] [address] 2875 May, [facility] [id number] [place] [address] 79637- 1857 May, [facility] [id number] [place] [address] 00121- 0027 Apr, [facility] [id number] [place] [address] 44267- 5234 04 Apr, 2016 Visit for TB skin test Z11.1 [facility] [id number] [place] [address] 82813- 6526 Mar, Insomnia G47.00 [facility] [id number] [place] [address] 49745- 0510 Mar, [facility] [id number] [place] [address] 71074- 6633 Jan, [facility] [id number] [place] [address] 40731- 3091 Jan, [facility] [id number] [place] [address] 75505- 0053 Dec, [facility] [id number] [place] [address] 20498- 2448 Dec, Right upper quadrant abdominal pain R10.11 [facility] [address] [address]9777 Dec, Epigastric pain R10.13 and Nausea R11.0 [facility] [address] [address]- 1353 09 Dec, 2015 Insomnia G47.00 ; ADD (attention deficit disorder) F90.0 ; Dysthymic disorder F34.1 ; Mastodynia N64.4 ; Secondary hypertension I15.9 ; Chronic nonintractable headache, unspecified headache type R51 and Acute anxiety F41.9 [facility] [id number] [place] [address] 72471- 5766 October, Dysthymic disorder F34.1 ; Acute anxiety F41.9 and ADD ( attention deficit disorder) F90.0 [facility] [facility] [id number] [place] [address] 55359- 8577 Aug, [facility] [facility] [id number] [place] [address] 81967- 6213 Aug, Dysthymic disorder F34.1 ; ADD (attention deficit disorder) F90.0 and Acute anxiety F41.9 [place] [id number] [place] [address] 10537- 7144 03 Aug, 2015 Evaluation for intrauterine contraception Z30.[address] 00148- 7344 Aug, Acute anxiety F41.9 ; Dysthymic disorder F34.1 ; Pseudotumor cerebri G93.2 ; Insomnia G47.00 ; Chronic headaches R51 ; HTN ( hypertension) I10 and ADD (attention deficit disorder) F90.0 [place] [id number] [place] [address] 28732- 4940 01 Aug, 2015 Well woman exam Z01.419 ; Encounter for screening for malignant neoplasm of cervix Z12.4 ; BMI 33.0-33.9,adult Z68.33 ; Intracranial hypertension G93.2 ; Unprotected sexual intercourse Z72.51 ; Anxiety F41.9 ; Depression, unspecified depression type F32.9 ; Other constipation K59.09 ; Diarrhea R19.7 ; Evaluation for contraceptive implant Z30.018 ; Herpes simplex B00.9 ; Benign tumor D36.9 and Abdominal tenderness R10.819 [place] [address] [address]- 1118 Jul, [facility] [id number] [place] [address] 60396- 8464 Jul, [place] [id number] [place] [address] 19894- 7806 Jun, Dysthymic disorder F34.1 ; ADD (attention deficit disorder) F90.0 and Acute anxiety F41.9 [place] [address] 22945- 5407 Jun, [place] [address] 93802- 1257 Jun, Pseudotumor cerebri G93.2 ; Anxiety F41.9 ; Insomnia G47.00 ; Chronic headaches R51 ; ADD (attention deficit disorder) F90.0 ; Pain in unspecified shoulder M25.519 and HTN (hypertension) I10 [place] [address] 75977- 3635 Jun, [place] [address] 96929- 9517 May, URI (upper respiratory infection) J06.[address] 53872- 7677 Apr, Encounter for immunization Z23 [place] [address] 99518- 2422 Apr, [place] [address] 92186- 0656 Mar, [place] [address] 43590- 9070 Mar, Rib pain on right side 786.50 [place] [address] 29669- 2017 Mar, [place] [address] 15120- 1246 Mar, [place] [address] 82011- 0198 Jan, Pseudotumor cerebri syndrome 348.2 ; Attention deficit disorder of childhood without mention of hyperactivity 314.00 and Depression 311 [place] [address] 43032- 8410 Dec, [place] [address] [address]- 3030 Dec, [facility] [id number] [place] [address] 51399- 5189 Nov, [facility] [address] [address]- 7093 Nov, Herpes labialis 054.9 [facility] [id number] [place] [address] 12597- 0073 Nov, [facility] [id number] [place] [address] 01810- 7261 October, [facility] [id number] [place] [address] 52932- 7629 October, Premenstrual syndrome 625.4 [facility] [id number] [place] [address] 70495- 1041 October, Depressive disorder, not elsewhere classified 311 ; Attention deficit disorder of childhood without mention of hyperactivity 314.00 and Anxiety state 300.00 [facility] [address] [address]- 7741 Sep, [facility] [address] [address]- 5097 Sep, [facility] [address] [address]- 3329 Aug, [facility] [address] [address]- 8736 27 Aug, 2014 [facility] [address], [place] [address]- 9388 Aug, [facility] [address] [address]- 3841 14 Aug, 2014 [facility] [address], [place] [address]- 8669 Aug, [facility] [id number] [place] [address]- 1272 Aug, [facility] [place] [facility] [address] [id number] [place] [address]- 5178 Aug, 2014 [facility] [place] [facility] [address] [id number] [place] [address]- 2546 Aug, 2014 [facility] [place] [facility] [address] [id number] [place] [address]- 2391 Aug, 2014 [facility] [place] [facility] [address] [id number] [place] [address]- 8857 Aug, 2014 [facility] [place] [facility] [address] [id number] [place] [address]- 3157 Aug, 2014 [facility] [place] [facility] [address] [id number] [place] [address]- 2601 Aug, 2014 [facility] [place] [facility] [address] [id number] [place] [address]- 2470 Aug, 2014 [facility] [place] [facility] [address] [id number] [place] [address]- 2064 Aug, [facility] [place] [facility] [address] [id number] [place] [address]- 6498 Jul, [facility] [place] [facility] [address] [id number] [place] [address]- 5684 Jul, [facility] [place] [facility] [address] [id number] [place] [address]- 3107 Jul, [facility] [place] [facility] [address] [id number] [place] [address]- 8704 Jul, [facility] [place] [facility] [address] [id number] [place] [address]- 7272 Jul, [facility] [place] [facility] [address] [id number] [place] [address]- 2009 Jul, [facility] [place] [facility] [address] [id number] [place] [address]- 7543 Jul, [facility] [place] [facility] [address] [id number] [place] [address]- 2059 Jul, [facility] [place] [facility] [address] [id number] [place] [address]- 6216 Jul, [facility] [place] [facility] [address] [id number] [place] [address]- 1965 Jul, [facility] [place] [facility] [address] [id number] [place] [address]- 3233 Jul, [facility] [place] [facility] [address] [id number] [place] [address]- 7560 Jul, [facility] [place] [facility] [address] [id number] [place] [address]- 1164 Jun, [facility] [place] [facility] [address] [id number] [place] [address]- 3953 Jun, [facility] [place] [facility] [address] [id number] [place] [address]- 0465 Jun, [facility] [place] [facility] [address] [id number] [place] [address]- 5194 Jun, [facility] [place] [facility] [address] [id number] [place] [address]- 0658 Jun, [facility] [place] [facility] [address] [id number] [place] [address]- 6073 Jun, [facility] [place] [facility] [address] [id number] [place] [address]- 3956 Jun, [facility] [place] [facility] [address] [id number] [place] 6341 Jun, [facility] [place] [facility] [address] [id number] [place] [address]- 6327 Jun, [facility] [place] [facility] [address] [id number] [place] [address]- 6303 Jun, [facility] [place] [facility] [address] [id number] [place] [address]- 2743 May, [facility] [place] [facility] [address] [id number] [place] [address]- 6065 May, [facility] [place] [facility] [address] [id number] [place] [address]- 8389 Apr, [facility] [place] [facility] [address] [id number] [place] [address]- 1302 Apr, [facility] [place] [facility] [address] [id number] [place] [address]- 8063 Apr, [facility] [place] [facility] [address] [id number] [place] [address]- 7861 Apr, [facility] [place] [facility] [address] [id number] [place] [address]- 6997 Apr, [facility] [place] [facility] [address] [id number] [place] [address]- 7247 Apr, [facility] [place] [facility] [address] [id number] [place] [address]- 6065 2013 [facility] [place] [facility] [address] [id number] [place] [address] 2541 2014 [facility] [place] [facility] [address] [facility] [id number] [place] [address]- 2547 25 Mar, 2014 [facility] [place] [facility] [address] [id number] [place] [address] 2548 25 Mar, 2013 [facility] [place] [facility] [address] [id number] [place] [address]- 2543 19 Mar, 2013 [facility] [place] [facility] [address] [id number] [place] [address] 2542 19 Mar, 2013 [facility] [place] [facility] [address] [id number] [place] [address]- 2545 12 Mar, 2013 [facility] [place] [facility] [address] [id number] [place] [address]- 2542 Mar, [facility] [place] [facility] [address] [id number] [place] [address]- 8968 Mar, [facility] [place] [facility] [address] [id number] [place] [address]- 3396 Mar, [facility] [place] [facility] [address] [id number] [place] [address]- 0258 Jan, [facility] [place] [facility] [address] [id number] [place] [address]- 2736 Jan, [facility] [place] [facility] [address] [id number] [place] [address]- 8532 Jan, [facility] [place] [facility] [address] [id number] [place] [address]- 5346 Jan, [facility] [place] [facility] [address] [id number] [place] [address]- 9426 Jan, [facility] [place] [facility] [address] [id number] [place] [address]- 8112 Jan, [facility] [place] [facility] [address] [id number] [place] [address]- 2836 Jan, [facility] [place] [facility] [address] [id number] [place] [address]- 1005 Jan, [facility] [place] [facility] [address] [id number] [place] [address]- 0061 Dec, [facility] [place] [facility] [address] [id number] [place] [address]- 0806 Dec, [facility] [place] [facility] [address] [id number] [place] [address]- 9177 Dec, [facility] [place] [facility] [address] [id number] [place] [address]- 1498 Dec, [facility] [place] [facility] [address] [id number] [place] [address]- 1334 Dec, [facility] [place] [facility] [address] [id number] [place] [address]- 7917 Dec, [facility] [place] [facility] [address] [id number] [place] [address]- 4461 Dec, [facility] [place] [facility] [address] [id number] [place] [address]- 1140 Dec, [facility] [place] [facility] [address] [id number] [place] [address]- 7912 Dec, [facility] [place] [facility] [address] [id number] [place] [address]- 8349 Dec, [facility] [place] [facility] [address] [id number] [place] [address]- 1062 Dec, [facility] [place] [facility] [address] [id number] [place] [address]- 7720 Dec, [facility] [place] [facility] [address] [id number] [place] [address]- 3314 Dec, [facility] [place] [facility] [address] [id number] [place] [address]- 6456 Dec, [facility] [place] [facility] [address] [id number] [place] [address]- 4748 Dec, [facility] [place] [facility] [address] [id number] [place] [address]- 5401 Dec, [facility] [place] [facility] [address] [id number] [place] [address]- 1425 Nov, [facility] [place] [facility] [address] [id number] [place] [address]- 5813 Nov, [facility] [place] [facility] [address] [id number] [place] [address]- 4635 Nov, [facility] [place] [facility] [address] [id number] [place] [address]- 1571 Nov, [facility] [place] [facility] [address] [id number] [place] [address]- 1066 Nov, [facility] [place] [facility] [address] [id number] [place] [address]- 1373 25 Nov, 2013 [facility] [place] [facility] [address] [id number] [place] [address]- 6950 19 Nov, 2013 [facility] [place] [facility] [address] [id number] [place] [address]- 3453 19 Nov, 2013 [facility] [place] [facility] [address] [id number] [place] [address]- 2291 19 Nov, 2013 [facility] [place] [facility] [address] [id number] [place] [address]- 2518 19 Nov, 2013 [facility] [place] [facility] [address] [id number] [place] [address]- 6652 19 Nov, 2013 [facility] [place] [facility] [address] [id number] [place] [address]- 4591 19 Nov, 2013 [facility] [place] [facility] [address] [id number] [place] [address]- 4942 18 Nov, 2013 [facility] [place] [facility] [address] [id number] [place] [address]- 1870 17 Nov, 2013 [facility] [place] [facility] [address] [id number] [place] [address]- 1281 17 Nov, 2013 [facility] [place] [facility] [address] [id number] [place] [address]- 8699 13 Nov, 2013 [facility] [place] [facility] [address] [id number] [place] [address]- 0909 13 Nov, 2013 [facility] [place] [facility] [address] [id number] [place] [address]- 9608 13 Nov, 2013 [facility] [place] [facility] [address] [id number] [place] [address]- 5985 13 Nov, 2013 [facility] [place] [facility] [address] [id number] [place] [address]- 4459 11 Nov, 2013 [facility] [place] [facility] [address] [id number] [place] [address]- 6630 Nov, [facility] [place] [facility] [address] [id number] [place] [address]- 8071 Nov, [facility] [place] [facility] [address] [id number] [place] [address]- 8381 Nov, [facility] [place] [facility] [address] [id number] [place] [address]- 8884 Nov, [facility] [place] [facility] [address] [id number] [place] [address]- 9010 Nov, [facility] [place] [facility] [address] [id number] [place] [address]- 9715 Nov, [facility] [place] [facility] [address] [id number] [place] [address]- 6305 Nov, [facility] [place] [facility] [address] [id number] [place] [address]- 6624 Nov, [facility] [place] [facility] [address] [id number] [place] [address]- 9556 Nov, [facility] [place] [facility] [address] [id number] [place] [address]- 0077 Nov, [facility] [place] [facility] [address] [id number] [place] [address]- 1206 Nov, [facility] [place] [facility] [address] [id number], [place] [address]- 8650 Nov, [facility] [place] [facility] [address] [id number], [place] [address]- 3475 Nov, [facility] [place] [facility] [address] [id number] [place] [address]- 6735 October, [facility] [place] [facility] [address] [id number] [place] [address]- 0055 October, [facility] [place] [facility] [address] [id number] [place] [address]- 6095 October, [facility] [place] [facility] [address] [id number], [place] [address]- 6832 October, [facility] [address] [id number] [place] [address]- 8542 October, [facility] [address] [id number] [place] [address]- 4830 October, [facility] [address] [id number] [place] [address]- 7989 October, [facility] [address] [id number] [place] [address]- 6460 October, [facility] [address] [id number] [place] [address]- 5767 October, [facility] [address] [id number] [place] [address]- 0023 October, [facility] [address] [id number] [place] [address]- 8496 Sep, [facility] [address] [id number] [place] [address]- 1929 Sep, [facility] [address] [id number] [place] [address] Sep, [facility] [address] [id number] [place] [address] Sep, [facility] [address] [id number] [place] [address] Sep, [facility] [place] [facility] [address] [id number], [place] [address] Sep, [facility] [place] [facility] [address] [id number] [place] [address] Sep, [facility] [place] [facility] [address] [id number] [place] [address] Sep, [facility] [place] [facility] [address] [id number] [place] [address] Sep, [facility] [place] [facility] [address] [id number] [place] [address] Sep, [facility] [place] [facility] [address] [id number] [place] [address] Aug, [facility] [place] [facility] [address] [id number] [place] [address] Aug, [facility] [place] [facility] [address] [id number] [place] [address] Aug, [facility] [place] [facility] [address] [id number] [place] [address] Aug, [facility] [place] [facility] [address] [id number] [place] [address] Aug, [facility] [place] [facility] [address] [id number] [place] [address] Aug, [facility] [place] [facility] [address] [id number] [place] [address] Aug, [facility] [place] [facility] [address] [id number] [place] [address] Aug, [facility] [place] [facility] [address] [id number] [place] [address] Aug, [facility] [place] [facility] [address] [id number] [place] [address] Aug, [facility] [place] [facility] [address] [id number] [place] [address] Aug, [facility] [place] [facility] [address] [id number] [place] [address] Aug, [facility] [place] [facility] [address] [id number] [place] [address]- [address] Aug, [facility] [place] [facility] [address] [id number] [place] [address]- [address] Aug, [facility] [place] [facility] [address] [id number] [place] [address]- [address] Aug, [facility] [place] [facility] [address] [id number] [place] [address]- [address] Aug, [facility] [place] [facility] [address] [id number] [place] [address] Jul, [facility] [place] [facility] [address] [id number] [place] [address] Jul, [facility] [place] [facility] [address] [id number] [place] [address]- [address] Jul, [facility] [place] [facility] [address] [id number] [place] [address] Jul, [facility] [place] [facility] [address] [id number] [place] [address]- [address] Jul, [facility] [place] [facility] [address] [id number] [place] [address] Jul, [facility] [place] [facility] [address] [id number] [place] [address]- [address] Jul, [facility] [place] [facility] [address] [id number] [place] [address]- [address] Jul, [facility] [place] [facility] [address] [id number] [place] [address] Jul, [facility] [place] [facility] [address] [id number], [place] [address] Jul, [facility] [place] [facility] [address] [id number], [place] [address] May, [facility] [place] [facility] [address] [id number] [place] [address] 39[address] May, [facility] [place] [facility] [address] [id number] [place] [address] May, [facility] [place] [facility] [address] [id number] [place] [address] May, [facility] [place] [facility] [address] [id number], [place] [address] Apr, [facility] [address] [id number] Apr, [facility] [id number] [address] Apr, [facility] [id number], [place] [address] Apr, [facility] [id number] [address] Apr, [facility] [id number] [place] [address] Apr, [facility] [id number] [address] Apr, [facility] [id number], [place] [address] Apr, [facility] [address] [id number], [place] [address] Mar, IMMUNIZATIONS No Known Immunizations SOCIAL HISTORY Never Assessed REASON FOR VISIT Controlled Med Refill PLAN OF CARE VITAL SIGNS MEDICATIONS Medication Instructions Dosage Frequency Start Date End Date Duration Status Tylenol with Codeine #3 300-30 MG Orally every 6 hrs 1 tablet as needed 6h 28 Active RESULTS No Results PROCEDURES No Known procedures INSTRUCTIONS MEDICATIONS ADMINISTERED No Known Medications MEDICAL (GENERAL) HISTORY Type Description Date Medical [...]
--- OUTSIDE RECORDS SUMMARY | 2017-12-26 13:12 | XMS REPORT ---
Author Author NEREYDA Conway Organization [facility] Address [address] [place] [address] Care Team Providers Care Ocean Import Representative Name Role Phone vickyEmileJARET NEREYDA Unavailable PROBLEMS Type Condition ICD9-CM Code TKS14-WH Code Onset Dates Condition Status SNOMED Code Problem Pseudotumor cerebri G93.2 Active 68559577 Problem ADD (attention deficit disorder) F90.0 Active 458949165 Problem Chronic headaches R51 Active 611750688 Problem Carpal tunnel syndrome of right wrist G56.01 Active 19879354 Problem Mastodynia N64.4 Active 54575610 Problem Pain in unspecified shoulder M25.519 Active 65700159 Problem Insomnia G47.00 Active 657344040 Problem Acute anxiety F41.9 Active 17463104 Problem Dysthymic disorder F34.1 Active 29310103 ALLERGIES Substance Reaction Event Type Date Status Imitrex Unknown Drug Allergy Nov, Active Toradol Unknown Drug Allergy Nov, Active ENCOUNTERS Encounter Location Date Diagnosis [facility] [id number] [place] [address] 19653- 5520 Nov, [facility] [id number] [place] [address] 74656- 9735 Nov, Pseudotumor cerebri G93.2 ; Chronic headaches R51 ; ADD ( attention deficit disorder) F90.0 ; Acute anxiety F41.9 and Insomnia G47.00 [facility] [id number] [place] [address] 77913- 0301 Nov, ADD (attention deficit disorder) F90.0 [facility] [id number] [place] [address] 12648- 6740 October, Dysthymic disorder F34.1 and ADD (attention deficit disorder ) F90.0 [facility] [id number] [place] [address] 41393 -5829 Sep, Sore throat J02.9 and Acute non-recurrent pansinusitis J01.40 [facility] [id number] [place] [address] 91597- 5788 07 Sep, 2016 ADD (attention deficit disorder) F90.0 [facility] [address] 93553- 2875 15 Aug, 2016 [place] [address] 61350- 5376 13 Aug, 2016 Right wrist pain M25.531 [facility] [place] [address] 67263 -2980 07 Aug, 2016 Carpal tunnel syndrome of right wrist G56.01 [facility] [id number] [place] [address] 15841- 7542 Aug, Dysthymic disorder F34.1 ; ADD (attention deficit disorder) F90.0 and Chronic headaches R51 [facility] [place] [id number] [place] [address] 65563- 2759 Jul, Dysthymic disorder F34.1 ; Chronic headaches R51 and ADD ( attention deficit disorder) F90.0 [facility] [place] [id number] [place] [address] 14736- 0005 Jun, ADD (attention deficit disorder) F90.0 [facility] [place] [id number] [place] [address] 72363- 8844 Jun, Insomnia G47.00 ; Chronic headaches R51 ; Pseudotumor cerebri G93.2 ; Dysthymic disorder F34.1 and ADD (attention deficit disorder) F90.0 [facility] [id number] [place] [address] 11656 -3082 Jun, Acute non-recurrent pansinusitis J01.40 and Gastroenteritis K52.9 [place] [address] 68101- 4119 Jun, [facility] [id number] [place] [address] 52079- 1543 May, [facility] [id number] [place] [address] 36353- 5289 May, [facility] [id number] [place] [address] 74746- 3723 Apr, [facility] [address] 27897- 3769 Apr, Visit for TB skin test Z11.1 [place] [address] 60577- 0820 Mar, Insomnia G47.00 [facility] [id number] [place] [address] 56373- 7239 Mar, [facility] [id number] [place] [address] 94829- 6092 Jan, [facility] [id number] [place] [address] 01979- 4822 Jan, [facility] [id number] [place] [address] 74097- 6342 Dec, [facility] [id number] [place] [address] 87131- 0255 Dec, Right upper quadrant abdominal pain R10.11 [facility] [id number] [place] [address] 51027 -4315 Dec, Epigastric pain R10.13 and Nausea R11.0 [facility] [id number] [place] [address] 16742- 1711 Nov, Insomnia G47.00 ; ADD (attention deficit disorder) F90.0 ; Dysthymic disorder F34.1 ; Mastodynia N64.4 ; Secondary hypertension I15.9 ; Chronic nonintractable headache, unspecified headache type R51 and Acute anxiety F41.9 [place] [id number] [place] [address] 83281- 6374 October, Dysthymic disorder F34.1 ; Acute anxiety F41.9 and ADD ( attention deficit disorder) F90.0 [facility] [id number] [place] [address] 87839- 4967 Aug, [place] [address] 94956- 4274 Aug, Dysthymic disorder F34.1 ; ADD (attention deficit disorder) F90.0 and Acute anxiety F41.[address] 76733- 9178 Aug, Evaluation for intrauterine contraception Z30.[address] 34349- 8025 01 Aug, 2015 Acute anxiety F41.9 ; Dysthymic disorder F34.1 ; Pseudotumor cerebri G93.2 ; Insomnia G47.00 ; Chronic headaches R51 ; HTN ( hypertension) I10 and ADD (attention deficit disorder) F90.0 [place] [address] 36612- 2986 01 Aug, 2015 Well woman exam Z01.419 [...] Benign tumor D36.9 and Abdominal tenderness R10.819 [place] [id number] [place] [address] 07001- 4013 Jul, [facility] [id number] [place] [address] 24948- 3302 Jul, [place] [address] 13978- 1981 Jun, Dysthymic disorder F34.1 ; ADD (attention deficit disorder) F90.0 and Acute anxiety F41.9 [place] [address] 73659- 5708 Jun, [facility] [place] [address] 18021- 2861 Jun, Pseudotumor cerebri G93.2 ; Anxiety F41.9 ; Insomnia G47.00 ; Chronic headaches R51 ; ADD (attention deficit disorder) F90.0 ; Pain in unspecified shoulder M25.519 and HTN (hypertension) I10 [place] [address] 45604- 6987 Jun, [place] [address] 47364- 1871 May, URI (upper respiratory infection) J06.9 [place] [address] 85176- 5881 Apr, Encounter for immunization Z23 [facility] [address] 67154- 1614 Apr, [facility] [address] 02120- 8914 Mar, [facility] [place] [id number] [place] [address] 01428- 3579 Mar, Rib pain on right side 786.50 [facility] [place] [id number] [place] [address] 66927- 2129 Mar, [place] [address] 08075- 3045 Mar, [facility] [place] [id number] [place] [address] 52399- 4016 Jan, Pseudotumor cerebri syndrome 348.2 ; Attention deficit disorder of childhood without mention of hyperactivity 314.00 and Depression 311 [place] [place] [id number] [address] 7041 Dec, [facility] [id number] [place] [address] 365180- 4080 Dec, [facility] [id number] 0440 Nov, [facility] [id number] [place] [address] 32167- 8867 Nov, Herpes labialis 054.9 [facility] [id number] [place] [address] 85743- 9455 Nov, [facility] [id number] [place] [address] 47970- 5341 October, [facility] [id number] [place] [address] 21187- 8140 October, Premenstrual syndrome 625.4 [facility] [id number] [place] [address] 49522- 9046 October, Depressive disorder, not elsewhere classified 311 ; Attention deficit disorder of childhood without mention of hyperactivity 314.00 and Anxiety state 300.00 [facility] [address] [address]- 6792 Sep, [facility] [address] [address]- 4868 Sep, [facility] [address] [address]- 9343 Aug, [facility] [address] [address]- 8882 Aug, [facility] [id number] [place] [address] 10733- 8927 Aug, [facility] [address] [address]- 8114 Aug, [facility] [id number] [place] [address] 16152- 6341 Aug, [facility] [place] [facility] [address] [id number] [place] [address]- 6178 Aug, [facility] [place] [facility] [address] [id number] [place] [address]- 4446 Aug, 2014 [facility] [place] [facility] [address] [id number] [place] [address]- 9866 Aug, [facility] [place] [facility] [address] [id number] [place] [address]- 3415 Aug, 2014 [facility] [place] [facility] [address] [id number] [place] [address]- 7770 Aug, 2014 [facility] [place] [facility] [address] [id number] [place] [address]- 9035 Aug, [facility] [place] [facility] [address] [id number] [place] [address]- 0248 Aug, [facility] [place] [facility] [address] [id number] [place] [address]- 6476 Aug, [facility] [place] [facility] [address] [id number] [place] [address]- 0818 Aug, [facility] [place] [facility] [address] [id number] [place] [address]- 0194 Jul, [facility] [place] [facility] [address] [id number] [place] [address]- 1495 Jul, [facility] [place] [facility] [address] [id number] [place] [address]- 6387 Jul, [facility] [place] [facility] [address] [id number] [place] [address]- 1388 Jul, [facility] [place] [facility] [address] [id number] [place] [address]- 7535 Jul, [facility] [place] [facility] [address] [id number] [place] [address]- 6530 Jul, [facility] [place] [facility] [address] [id number] [place] [address]- 8613 Jul, [facility] [place] [facility] [address] [id number] [place] [address]- 0519 Jul, [facility] [place] [facility] [address] [id number] [place] [address]- 1856 Jul, [facility] [place] [facility] [address] [id number] [place] [address]- 1427 Jul, [facility] [address] [id number] [place] [address]- 7204 Jul, [facility] [place] [facility] [address] [id number] [place] [address]- 8389 Jul, [facility] [address] [id number] [place] [address]- 2324 Jun, [facility] [address] [id number] [place] [address]- 7073 Jun, [facility] [place] [facility] [address] [id number] [place] [address]- 1555 Jun, [facility] [place] [facility] [address] [id number] [place] [address]- 0080 Jun, [facility] [place] [facility] [address] [id number] [place] [address]- 8862 Jun, [facility] [place] [facility] [address] [id number] [place] [address]- 2334 Jun, [facility] [place] [facility] [address] [id number] [place] [address]- 1121 Jun, [facility] [place] [facility] [address] [id number] [place] [address]- 1055 Jun, [facility] [place] [facility] [address] [id number] [place] [address]- 1194 Jun, [facility] [place] [facility] [address] [id number] [address]- 2646 Jun, [facility] [place] [facility] [address] [id number] [place] [address]- 4481 May, [facility] [place] [facility] [address] [id number] [place] [address]- 0710 May, [facility] [place] [facility] [address] [id number] [place] [address]- 2334 Apr, [facility] [place] [facility] [address] [id number] [place] [address]- 2276 Apr, [facility] [place] [facility] [address] [id number] [place] [address]- 5848 Apr, [facility] [place] [facility] [address] [id number] [place] [address]- 3818 Apr, [facility] [place] [facility] [address] [id number] [place] [address]- 9472 Apr, [facility] [place] [facility] [address] [id number] [place] [address]- 0239 Apr, [facility] [place] [facility] [address] [id number] [place] [address]- 1516 2014 [facility] [place] [facility] [address] [id number] [place] [address]- 7803 2014 [facility] [place] [facility] [address] [id number] [address]- 6289 25 Mar, 2014 [facility] [place] [facility] [address] [id number] [address]- 7193 25 Mar, 2014 [facility] [place] [facility] [address] [id number] [place] [address]- 9077 19 Mar, 2014 [facility] [place] [facility] [address] [id number] [place] [address]- 7960 19 Mar, 2014 [facility] [place] [facility] [address] [id number] [place] [address]- 7203 12 Mar, 2014 [facility] [place] [facility] [address] [id number] [place] [address]- 3703 Mar, [facility] [place] [facility] [address] [id number] [place] [address]- 8914 Mar, [facility] [place] [facility] [address] [id number] [place] [address]- 1296 Mar, [facility] [place] [facility] [address] [id number] [place] [address]- 8262 Jan, [facility] [place] [facility] [address] [id number] [place] [address]- 6579 Jan, [facility] [place] [facility] [address] [id number] [place] [address]- 4819 Jan, [facility] [place] [facility] [address] [id number] [place] [address]- 4257 Jan, [facility] [place] [facility] [address] [id number] [place] [address]- 0135 Jan, [facility] [place] [facility] [address] [id number] [place] [address]- 8787 Jan, [facility] [place] [facility] [address] [id number] [place] [address]- 9573 Jan, [facility] [place] [facility] [address] [id number] [place] [address]- 4847 Jan, [facility] [place] [facility] [address] [id number] [place] [address]- 9980 Dec, [facility] [place] [facility] [address] [id number] [place] [address]- 3081 Dec, [facility] [place] [facility] [address] [id number] [place] [address]- 2257 Dec, [facility] [place] [facility] [address] [id number] [place] [address]- 9778 Dec, [facility] [place] [facility] [address] [id number] [place] [address]- 8862 Dec, [facility] [place] [facility] [address] [id number] [place] [address]- 0443 Dec, [facility] [place] [facility] [address] [id number] [place] [address]- 2385 Dec, [facility] [place] [facility] [address] [id number] [place] [address]- 2097 Dec, [facility] [place] [facility] [address] [id number] [place] [address]- 2527 Dec, [facility] [place] [facility] [address] [id number] [place] [address]- 0332 Dec, [facility] [place] [facility] [address] [id number] [place] [address]- 1519 Dec, [facility] [place] [facility] [address] [id number] [place] [address]- 9925 Dec, [facility] [place] [facility] [address] [id number] [place] [address]- 1955 Dec, [facility] [place] [facility] [address] [id number] [place] [address]- 5655 Dec, [facility] [place] [facility] [address] [id number] [place] [address]- 2673 Dec, [facility] [place] [facility] [address] [id number] [place] [address]- 8090 Dec, [facility] [place] [facility] [address] [id number] [place] [address]- 9284 Nov, [facility] [place] [facility] [address] [id number] [place] [address]- 2579 Nov, [facility] [place] [facility] [address] [id number] [place] [address]- 4181 Nov, [facility] [place] [facility] [address] [id number] [place] [address]- 3951 Nov, [facility] [place] [facility] [address] [id number] [place] [address]- 7074 Nov, [facility] [place] [facility] [address] [id number] [place] [address]- 7130 25 Nov, 2013 [facility] [place] [facility] [address] [id number] [place] [address]- 5357 19 Nov, 2013 [facility] [place] [facility] [address] [id number] [place] [address]- 7346 Nov, [facility] [place] [facility] [address] [id number] [place] [address]- 7115 19 Nov, 2013 [facility] [place] [facility] [address] [id number] [place] [address]- 2600 Nov, [facility] [place] [facility] [address] [id number] [place] [address]- 3332 Nov, [facility] [place] [facility] [address] [id number] [address]- 1737 Nov, [facility] [place] [facility] [address] [id number] [place] [address]- 2571 18 Nov, 2013 [facility] [place] [facility] [address] [id number] [place] [address]- 7361 17 Nov, 2013 [facility] [place] [facility] [address] [id number] [place] [address]- 3414 17 Nov, 2013 [facility] [place] [facility] [address] [id number] [place] [address]- 1873 13 Nov, 2013 [facility] [place] [facility] [address] [id number] [place] [address]- 9315 13 Nov, 2013 [facility] [place] [facility] [address] [id number] [place] [address]- 8256 13 Nov, 2013 [facility] [place] [facility] [address] [id number] [place] [address]- 8337 13 Nov, 2013 [facility] [place] [facility] [address] [id number] [place] [address]- 5979 11 Nov, 2013 [facility] [place] [facility] [address] [id number] [place] [address]- 5363 Nov, [facility] [place] [facility] [address] [id number] [place] [address]- 0709 Nov, [facility] [place] [facility] [address] [id number] [place] [address]- 2856 Nov, [facility] [place] [facility] [address] [id number] [place] [address]- 4958 Nov, [facility] [place] [facility] [address] [id number] [place] [address]- 3106 Nov, [facility] [place] [facility] [address] [id number] [place] [address]- 0685 Nov, [facility] [place] [facility] [address] [id number] [place] [address]- 0532 Nov, [facility] [place] [facility] [address] [id number] [place] [address]- 6618 Nov, [facility] [place] [facility] [address] [id number] [place] [address]- 6989 Nov, [facility] [place] [facility] [address] [id number] [place] [address]- 8504 Nov, [facility] [place] [facility] [address] [id number] [place] [address]- 1216 Nov, [facility] [place] [facility] [address] [id number] [place] [address]- 0306 Nov, [facility] [place] [facility] [address] [id number] [place] [address]- 9606 Nov, [facility] [place] [facility] [address] [id number] [place] [address]- 6148 October, [facility] [place] [facility] [address] [id number] [place] [address]- 1584 October, [facility] [place] [facility] [address] [id number] [place] [address]- 7351 October, [facility] [address] [id number] [place] [address]- 8994 October, [facility] [place] [facility] [address] [id number] [place] [address]- 5711 October, [facility] [address] [id number] [place] [address]- 4644 October, [facility] [place] [facility] [address] [id number] [place] [address]- 8290 October, [facility] [address] [id number] [place] [address]- 8023 October, [facility] [place] [facility] [address] [id number] [place] [address]- 9979 October, [facility] [place] [facility] [address] [id number] [place] [address] October, [facility] [place] [facility] [address] [id number] [place] [address] Sep, [facility] [place] [facility] [address] [id number] [place] [address] Sep, [facility] [place] [facility] [address] [id number] [place] [address] Sep, [facility] [place] [facility] [address] [id number] [address] Sep, [facility] [place] [facility] [address] [id number] [place] [address] Sep, [facility] [place] [facility] [address] [id number] [place] [address] Sep, [facility] [place] [facility] [address] [id number] [place] [address] Sep, [facility] [place] [facility] [address] [id number] [place] [address] Sep, [facility] [place] [facility] [address] [id number] [place] [address]- [address] Sep, [facility] [place] [facility] [address] [id number] [place] [address] Sep, [facility] [place] [facility] [address] [id number] [place] [address] Aug, [facility] [place] [facility] [address] [id number] [place] [address] Aug, [facility] [place] [facility] [address] [id number] [place] [address] Aug, [facility] [place] [facility] [address] [id number] [place] [address] Aug, [facility] [place] [facility] [address] [id number] [place] [address] Aug, [facility] [place] [facility] [address] [id number] [place] [address] Aug, [facility] [place] [facility] [address] [id number] [place] [address] Aug, [facility] [place] [facility] [address] [id number] [place] [address]- [address] Aug, [facility] [place] [facility] [address] [id number] [place] [address] Aug, [facility] [place] [facility] [address] [id number] [place] [address] Aug, [facility] [place] [facility] [address] [id number] [place] [address] Aug, [facility] [place] [facility] [address] [id number] [place] [address] Aug, [facility] [place] [facility] [address] [id number] [place] [address]- [address] Aug, [facility] [place] [facility] [address] [id number] [place] [address]- [address] Aug, [facility] [place] [facility] [address] [id number] [place] [address]- 8028 Aug, [facility] [place] [facility] [address] [id number] [place] [address]- [address] Aug, [facility] [place] [facility] [address] [id number] [place] [address] 58[address] Jul, [facility] [place] [facility] [address] [id number] [place] [address]- 7665 Jul, [facility] [place] [facility] [address] [id number] [place] [address] Jul, [facility] [place] [facility] [address] [id number] [place] [address]- [address] Jul, [facility] [place] [facility] [address] [id number] [place] [address] Jul, [facility] [place] [facility] [address] [id number] [place] [address] Jul, [facility] [place] [facility] [address] [id number] [place] [address] Jul, [facility] [place] [facility] [address] [id number] [place] [address] 79[address] Jul, [facility] [place] [facility] [address] [id number] [place] [address] Jul, [facility] [place] [facility] [address] [id number] [place] [address] Jul, [facility] [place] [facility] [address] [id number] [place] [address]284 May, [facility] [place] [facility] [address] [id number] [place] [address]- [address] May, [facility] [place] [facility] [address] [id number] [place] [address] May, [facility] [place] [facility] [address] [id number] [address] May, [facility] [id number] [address] Apr, [facility] [id number] [address] Apr, [facility] [address] [id number] [address] Apr, [facility] [id number] [place] [address] Apr, [facility] [id number] [place] [address]- [address] Apr, [facility] [id number] [place] [address]- [address] Apr, [facility] [id number] [place] [address] [id number]- 5311 Apr, [facility] [id number] [address] Apr, [facility] [address] [address] Mar, IMMUNIZATIONS No Known Immunizations SOCIAL HISTORY Never Assessed REASON FOR VISIT pain management, PT is wanting to try to get off her current medications, and her are trying to have children- Nidia LIRIANO PLAN OF CARE Activity Details Follow Up 3 Months Reason: VITAL SIGNS Height 65 in 2016-12-25 Weight 208.6 lbs 2016-12-25 Temperature 97.7 degrees Fahrenheit 2016-12-25 Heart Rate 76 bpm 2016-12-25 Respiratory Rate 18 2016-12-25 BMI 34.71 kg/m2 2016-12-25 Blood pressure systolic 126 mmHg 2016-12-25 Blood pressure diastolic 82 mmHg 2016-12-25 MEDICATIONS Medication Instructions Dosage Frequency Start Date End Date Duration Status Tylenol with Codeine #3 300-30 MG Orally every 6 hrs 1 tablet as needed 6h 28 Active Acyclovir 400 MG Orally Twice a day 1 tablet 12h 30 Nov, 2014 10 day(s ) Active Vyvanse 10 mg Orally Once a day x7 then every other day x 4 times 1 tablet in the morning Nov, 14 days Active Vyvanse 10 mg Orally Once a day x7 then every other x 4 times 1 capsule in the morning Nov, 14 days Active Acyclovir 800 MG Orally Once a day 1 tablet 24h Nov, 10 day(s) Active Acyclovir 5 % Externally every 3 hrs 1 application to affected area 3h Nov, 10 days Active RESULTS No Results PROCEDURES No [...]
[2017-12-26] MEDS ORDERED: OXYTOCIN/NORMAL SALINE 500 ML IV SCH (13:17)
[2017-12-26] MEDS ORDERED: D5 LR IV SOLUTION 1,000 ML IV ONE (13:23)
[2017-12-26] MEDS: CATHETER FLUSH 10 ML SYR IV SCH (14:07)
[2017-12-26] MEDS: D5 LR IV SOLUTION 1,000 ML IV SCH ×2 (14:07→20:28)
[2017-12-26 14:15] LABS: BASOPHILS % (AUTO) 0 % (0-10); EOSINOPHILS # (AUTO) 0.1 10^3/uL (0.0-0.3); EOSINOPHILS % (AUTO) 1 % (0-10); HEMATOCRIT 32 % (35-52); LYMPHOCYTES # (AUTO) 1.9 X 10^3 (1.0-4.0); LYMPHOCYTES % (AUTO) 17 % (12-44); MEAN CORPUSCULAR HEMOGLOBIN 26 PG (25-34); MEAN CORPUSCULAR HGB CONC 32 G/DL (32-36); MEAN CORPUSCULAR VOLUME 83 FL (80-99); MONOCYTES # (AUTO) 0.8 X 10^3 (0.0-1.0); MONOCYTES % (AUTO) 7 % (0-12); NEUTROPHILS # (AUTO) 8.7 X 10^3 (1.8-7.8); NEUTROPHILS % (AUTO) 75 % (42-75); PLATELET COUNT 334 10^3/uL (130-400); RED BLOOD COUNT 3.83 10^6/uL (4.35-5.85); RED CELL DISTRIBUTION WIDTH 14.4 % (10.0-14.5); WHITE BLOOD COUNT 11.5 10^3/uL (4.3-11.0)
[2017-12-26] MEDS ORDERED: PREN-37 PO (18:54)
[2017-12-26] MEDS ORDERED: Diamox (18:54)
--- NOTE | 2017-12-26 19:20 | History & Physical ---
History and Physical Date Seen by Provider: Dec 26, 2017 Time Seen by Provider: 19:09 This patient is a 19-year-old G1 white female currently at 38 weeks gestation admitted from clinic with an CLEMENTE of 39. Last week. I was over 62. She denies rupture membranes or bleeding evaluation for leakage of amniotic fluid done in clinic was negative. Nitrazine was negative and ferning was negative. Patient does complain of having more discharge and wetness than what she has had up to this time in . Patient has been admitted with intent to proceed to delivery. Her history is complicated by her pre-existing diagnosis of pseudotumor cerebri for which she currently is asymptomatic. She does understand that if she were to have visual or neurologic changes referable to intracranial pressure increases then that would warrant stopping labor and proceeding with delivery. If her blood pressure should experience a significant elevation than we would stop labor in favor of the as well. Patient did have a GBS culture performed during this after 35 weeks gestation that was negative. Allergies are to Toradol and sumatriptan Medications are vitamins Past medical history, past surgical history, obstetric history, family history, and social histories are per the antepartum record HEENT exam is normal Neck is supple no lymphadenopathy no thyromegaly Abdomen is gravid soft nontender nondistended Extreme show clubbing cyanosis. There is no Homans sign. Exam in clinic showed a cervix that was closed but thinned out the 40-[address] The presentation is vertex. Ultrasound in clinic showed an CLEMENTE of 39. Also showed a biophysical profile of 8/8. Vital Signs Date Time Temp Pulse Resp B/P (MAP) Pulse Ox O2 Delivery O2 Flow Rate FiO2 12/26/17 18:36 93 121/66 (84) Room Air 12/26/17 18:15 85 120/61 (80) Room Air 12/26/17 18:00 85 18 125/66 (85) Room Air 12/26/17 17:45 Room Air 12/26/17 17:30 97.8 85 128/63 (84) Room Air 12/26/17 17:15 87 105/58 (74) Room Air 12/26/17 17:00 86 109/55 (73) Room Air 12/26/17 16:45 83 107/57 (74) Room Air 12/26/17 16:30 85 108/57 (74) Room Air 12/26/17 16:15 80 133/62 (85) Room Air 12/26/17 16:00 82 121/57 (78) Room Air 12/26/17 15:45 86 132/63 (86) Room Air 12/26/17 15:30 76 18 126/61 (82) Room Air 12/26/17 15:15 96.8 66 18 116/55 (75) Room Air 12/26/17 15:00 72 113/57 (75) Room Air 12/26/17 14:45 80 126/68 (87) Room Air 12/26/17 14:00 83 18 142/81 (101) Room Air Laboratory Tests 12/26/17 13:40 Assessment and plan: term at 38 weeks' gestation in a patient with oligohydramnios. I doubt has rupture membranes. There is no clear explanation for why her fluid level is decreased to this level, but as she is 38 weeks gestation plan is for admission for labor induction. He had been on Pitocin for several hours today were given a break from [place] with plan to reinitiate the Pitocin in the morning the anticipation of a improved response due to the exposure to the Pitocin this evening. This patient does have a pseudotumor cerebri for which she is currently asymptomatic. If she does develop symptoms referable to this disorder then we would proceed likely with a delivery. We anticipate a vaginal delivery but would be prepared for if needed. oligohydramnios at 38 weeks Allergies and Home Medications Allergies Coded Allergies: ketorolac (Verified Allergy, Unknown, made migraine worse, 02/10/16) sumatriptan (Verified Allergy, Unknown, 12/16/13) Worsening headache sumatriptan succinate (Verified Allergy, Unknown, 12/16/13) Worsening headache Home Medications Vit/Iron Fumarate/FA 1 Each Tablet, 1 EACH PO DAILY, (Reported) Patient Home Medication List Home Medication List Reviewed: Yes Clinical Quality Measures DVT/VTE Risk/Contraindication: Risk Factor Score Per Nursin RFS Level Per Nursing on Admit: 1=Low/No VTE PPX KELLEE TADEO MD Dec 26, 2017 7:20 pm
[2017-12-26] MEDS ORDERED: ACETAMINOPHEN 500 MG TAB (TYLENOL) ONE (23:19)
[2017-12-27] VITALS (41 sets, daily range): BP systolic 99–132; BP diastolic 52–76
[2017-12-27] MEDS: D5 LR IV SOLUTION 1,000 ML IV SCH ×2 (02:58→09:39)
[2017-12-27] MEDS ORDERED: metroNIDAZOLE 500MG/100ML IVPB 100 ML IV NR (06:45)
--- NOTE | 2017-12-27 07:27 | Progress Note-Standard ---
Standard Progress Note Progress Notes/Assess & Plan Date Seen by Provider: Dec 27, 2017 Time Seen by Provider: 07:22 Progress/Assessment & Plan No complaint. No ROM, no bleeding, + FM, ctx starting. No MEDINA, no blurry vision. Pt reports quitting her Diamox (for ICP) three weeks ago because she felt she didn't need it. Vital Signs Date Time Temp Pulse Resp B/P (MAP) Pulse Ox O2 Delivery O2 Flow Rate FiO2 12/26/17 23:22 98.0 80 18 124/64 (84) Room Air 12/26/17 19:12 98.1 92 18 129/62 (84) Room Air 12/26/17 18:36 93 121/66 (84) Room Air 12/26/17 18:15 85 120/61 (80) Room Air 12/26/17 18:00 85 18 125/66 (85) Room Air 12/26/17 17:45 Room Air 12/26/17 17:30 97.8 85 128/63 (84) Room Air 12/26/17 17:15 87 105/58 (74) Room Air 12/26/17 17:00 86 109/55 (73) Room Air 12/26/17 16:45 83 107/57 (74) Room Air 12/26/17 16:30 85 108/57 (74) Room Air 12/26/17 16:15 80 133/62 (85) Room Air 12/26/17 16:00 82 121/57 (78) Room Air 12/26/17 15:45 86 132/63 (86) Room Air 12/26/17 15:30 76 18 126/61 (82) Room Air 12/26/17 15:15 96.8 66 18 116/55 (75) Room Air 12/26/17 15:00 72 113/57 (75) Room Air 12/26/17 14:45 80 126/68 (87) Room Air 12/26/17 14:00 83 18 142/81 (101) Room Air VSS AFB Abd gravid NT Ext ++edema, no homans VE - deferred - thick and closed per nurse report A/P Oligo at 38 weeks, Hx pseudotumor cerebri. IOL with pitocin today after several hours of pitocin administration yesterday. Anticipate vag delivery, prepared for c/s if needed. Would proceed with if S/Sx of increasing ICP. KELLEE TADEO MD Dec 27, 2017 7:27 am
[2017-12-27] MEDS ORDERED: LACTATED RINGERS 1,000 ML IV PRN (15:13)
[2017-12-27] MEDS ORDERED: ceFAZolin 2 GM IV Premixed 50 ML IV ONE (15:15)
[2017-12-27] MEDS ORDERED: METOCLOPRAMIDE INJ 10 MG/2 ML (REGLAN) IV ONE (15:15)
[2017-12-27] MEDS ORDERED: raNItidine INJECTION 50 MG in NS (IVPB) 50 ML IV ONE (15:15)
[2017-12-27] MEDS ORDERED: CITRIC ACID/SOB CIT (BICITRA) 30 ML UDC PO ONE (15:15)
[2017-12-27] MEDS ORDERED: metroNIDAZOLE 500MG/100ML IVPB 100 ML IV ONE (15:15)
[2017-12-27] MEDS ORDERED: metroNIDAZOLE 500MG/100ML IVPB 100 ML ONE (15:21)
[2017-12-27] MEDS ORDERED: CITRIC ACID/SOB CIT (BICITRA) 30 ML UDC ONE (15:21)
[2017-12-27] MEDS ORDERED: METOCLOPRAMIDE INJ 10 MG/2 ML (REGLAN) ONE (15:21)
[2017-12-27] MEDS ORDERED: raNItidine 50 MG/2 ML INJ (ZANTAC) ONE (15:21)
[2017-12-27] MEDS ORDERED: ceFAZolin 2 GM IV Premixed 50 ML ONE (15:22)
[2017-12-27] MEDS ORDERED: NS (IVPB) 50 ML ONE (15:22)
[2017-12-27] MEDS ORDERED: fentaNYL INJECTION 100 MCG/2 ML AMP ONE (15:40)
[2017-12-27] MEDS ORDERED: OXYTOCIN/NORMAL SALINE 500 ML IV ONE ×2 (15:40→17:21)
[2017-12-27] MEDS ORDERED: LIDOCAINE PF 1% 5 ML (XYLOCAINE) AMP ONE (15:54)
[2017-12-27] MEDS ORDERED: BUPIVACAINE 0.5% 30 ML (SENSORCAINE) VIAL ONE (15:59)
[2017-12-27] MEDS ORDERED: OXYTOCIN/NORMAL SALINE 500 ML IV SCH (16:34)
--- NOTE | 2017-12-27 16:37 | Progress Note-Pre Operative ---
Pre-Operative Progress Note H&P Reviewed The H&P was reviewed, patient examined and no changes noted. Date Seen by Provider: Dec 27, 2017 Time Seen by Provider: 16:37 Date H&P Reviewed: Dec 27, 2017 Time H&P Reviewed: 16:37 Pre-Operative Diagnosis: Oligohydramnios/perigee progress in labor/CPD KELLEE TADEO MD Dec 27, 2017 4:37 pm
[2017-12-27] MEDS ORDERED: D5 LR IV SOLUTION 1,000 ML IV ONE (16:42)
[2017-12-27] MEDS ORDERED: TETANUS,DIPTH,PERTUSS P/F (BOOSTRIX) 0.5 ML VIAL IM ONE (16:45)
[2017-12-27] MEDS ORDERED: ceFAZolin 2 GM IV Premixed 50 ML IV NR (16:45)
[2017-12-27] MEDS ORDERED: ONDANSETRON 4 MG/2 ML (SDV) Z0FRAN IVP PRN ×2 (16:45→17:45)
[2017-12-27] MEDS ORDERED: MEASLES,MUMPS,RUBELLA 1 EA INJ SC ONE (16:45)
[2017-12-27] MEDS ORDERED: PROMETHAZINE INJ 25 MG/ML (PHENERGAN) AMP IM PRN (16:45)
[2017-12-27] MEDS ORDERED: HYDROmorphone 1 MG/ML (DILAUDID) 1 ML SYRINGE IV PRN (17:45)
[2017-12-27] MEDS ORDERED: fentaNYL INJECTION 100 MCG/2 ML AMP IVP PRN (17:45)
[2017-12-27] MEDS: MEPERIDINE (DEMEROL) INJ 100 MG/ML IM PRN ×2 (19:49→22:06)
[2017-12-27] MEDS: oxyCODONE/APAP 10/325MG (PERCOCET 10) TABLET PO PRN (20:40)
[2017-12-27] MEDS: IBUPROFEN 800 MG (MOTRIN) TAB PO SCH (22:06)
[2017-12-27] MEDS: DOCUSATE SODIUM 100 MG (COLACE) CAP PO SCH (22:07)
[2017-12-28] MEDS: oxyCODONE/APAP 10/325MG (PERCOCET 10) TABLET PO PRN ×4 (00:47→20:00)
--- NOTE | 2017-12-28 00:55 | OPERATIVE REPORT ---
DATE OF SERVICE: 12/27/2017 PREOPERATIVE DIAGNOSIS: Term at 38 weeks gestation in labor with oligohydramnios with failure to progress/CPD. POSTOPERATIVE DIAGNOSIS: Term at 38 weeks gestation in labor with oligohydramnios with failure to progress/CPD with high station. OPERATIVE PROCEDURE: Primary low transverse delivery of a viable male with Apgars of 8 and 9 at 1 and 5 minutes respectively, weight of 7 pounds 13 ounces. Cord blood pH of 7.31 and a time of 17:04. OPERATIVE DESCRIPTION: With the patient in the supine position under satisfactory spinal anesthesia, the patient was prepped and draped in usual fashion for abdominal surgery. Mckoy catheter was placed in the urinary bladder and left to dependent drainage. A Pfannenstiel incision was made through the skin with a scalpel. The patient's abdomen entered in the usual manner. Bladder retractor was placed into position and clean scalpel was used to make a 4 cm hysterotomy incision transversely across lower uterine segment that was extended by a blunt dissection as well. A small amount of clear fluid was released on hysterotomy. The patient was known to have oligo. The was in a transverse lie. Figueroa forceps were applied to bring the head into the incision and then the Figueroa forceps were removed and abdominal/fundal pressure manually delivered the baby through the incision. The infant had a spontaneous cry, was bulb suctioned on delivery of the head and again on completion of delivery. The umbilical cord was doubly clamped and cut and passed to the pediatric nurse in attendance for delivery. Cord bloods were obtained, the placenta delivered spontaneously Dockery. It was normal with a 3-vessel cord. The uterus was exteriorized, the interior wiped clean with a wet laparotomy sponge. Uterine was then incision closed with a running locking suture of 2-0 Vicryl. Hemostasis was satisfactory, but the uterus was quite boggy. The patient had labored for quite some time on Pitocin. Decision was made to go ahead with a modified B-Lim suture using 2-0 chromic sutures. This compressed the uterus nicely and likely would be expected to minimize blood loss from this point on. Uterus was now returned to the abdominal cavity. All blood clot and debris removed from the abdominal cavity. Sponge and needle counts were correct and hemostasis assured. The anterior parietal peritoneum was closed with running suture of 2-0 Vicryl. The rectus muscles were closed with that suture as well. The rectus fascia was closed with 2-0 Vicryl and subcutaneous tissue was closed with 2-0 Vicryl and the skin was stapled. Sponge and needle counts were correct at the end of procedure. Estimated blood loss was around 500 mL. The patient tolerated the procedure well and was transferred to the recovery room in stable condition. The infant had been taken stable to the full term nursery. Job ID: [id number] DocumentID: [id number] Dictated Date: 12/27/2017 17:30:03 Pediatric Nephrologist Date: 12/28/2017 00:55:16 Dictated By: KELLEE TADEO MD
[2017-12-28] MEDS: CATHETER FLUSH 10 ML SYR IV SCH (01:30)
[2017-12-28] MEDS: IBUPROFEN 800 MG (MOTRIN) TAB PO SCH ×5 (01:34→22:04)
[2017-12-28 04:00] VITALS: BP 125/81
--- NOTE | 2017-12-28 07:23 | Progress Note-Standard ---
Standard Progress Note Progress Notes/Assess & Plan Date Seen by Provider: Dec 28, 2017 Time Seen by Provider: 07:21 Progress/Assessment & Plan No complaint. No ROM, no bleeding, + FM, ctx starting. No MEDINA, no blurry vision. Pt reports quitting her Diamox (for ICP) three weeks ago because she felt she didn't need it. Vital Signs Date Time Temp Pulse Resp B/P (MAP) Pulse Ox O2 Delivery O2 Flow Rate FiO2 12/26/17 23:22 98.0 80 18 124/64 (84) Room Air 12/26/17 19:12 98.1 92 18 129/62 (84) Room Air 12/26/17 18:36 93 121/66 (84) Room Air 12/26/17 18:15 85 120/61 (80) Room Air 12/26/17 18:00 85 18 125/66 (85) Room Air 12/26/17 17:45 Room Air 12/26/17 17:30 97.8 85 128/63 (84) Room Air 12/26/17 17:15 87 105/58 (74) Room Air 12/26/17 17:00 86 109/55 (73) Room Air 12/26/17 16:45 83 107/57 (74) Room Air 12/26/17 16:30 85 108/57 (74) Room Air 12/26/17 16:15 80 133/62 (85) Room Air 12/26/17 16:00 82 121/57 (78) Room Air 12/26/17 15:45 86 132/63 (86) Room Air 12/26/17 15:30 76 18 126/61 (82) Room Air 12/26/17 15:15 96.8 66 18 116/55 (75) Room Air 12/26/17 15:00 72 113/57 (75) Room Air 12/26/17 14:45 80 126/68 (87) Room Air 12/26/17 14:00 83 18 142/81 (101) Room Air VSS AFB Abd gravid NT Ext ++edema, no homans VE - deferred - thick and closed per nurse report A/P Oligo at 38 weeks, Hx pseudotumor cerebri. IOL with pitocin today after several hours of pitocin administration yesterday. Anticipate vag delivery, prepared for c/s if needed. Would proceed with if S/Sx of increasing ICP. December 28, 2017 No c/o. Amb, voiding, bimal PO, good pain control. VSS [employer] Vital Signs 12/28/17 04:00 Temp 98.4 Pulse 106 Resp 18 B/P (MAP) 125/81 (96) Pulse Ox 96 O2 Delivery Room Air FF < umb, NT, Incision CDI No Homans, ++ Pretibial edema / WNL A/P POD 1 S/P doing well. Routine care KELLEE TADEO MD Dec 28, 2017 7:23 am
--- NOTE | 2017-12-28 07:25 | Anesthesia-Regional Post-Op ---
Regional Patient Condition Mental Status: Alert, Oriented x3 Circulation: Same as Pre-Op Headache: Absent Sensation: Full Recovery Motor Block: Absent Post Op Complications Complications None Follow Up Care/Instructions Patient Instructions None needed. Anesthesia/Patient Condition Patient is doing well, no complaints, stable vital signs, no apparent adverse anesthesia problems. No complications reported per nursing. VIANEY HARRIS CRNA Dec 28, 2017 07:25
[2017-12-28] MEDS ORDERED: OXYC-465 PO (07:27)
[2017-12-28] MEDS ORDERED: IBUP-1780 PO (07:27)
[2017-12-28] MEDS ORDERED: DOCU100C37 PO (07:27)
--- NOTE | 2017-12-28 07:31 | Discharge Instructions ---
Discharge Instructions Discharge Medications New, Converted or Re-Newed RX: RX on Chart Patient Instructions Patient Instructions: as directed Return to The Hospital For: as directed Activity & Diet Discharge Diet: No Restrictions Activity as Tolerated: No Orders-Post D/C & Referrals Follow Up Appt: RTC Thursday January 04, 2018 at 9;30 AM for incision check. Call to make follow up appt. for patient in 4 weeks. Wound Care: Remove kurt, apply benzoin and steri strips. Activity Per routine post instructions. Please call in RX to patient pharmacy. Diet as tolerated Patient may shower or tub bathe as desired. Continue home meds KELLEE TADEO MD Dec 28, 2017 7:31 am
[2017-12-28 08:00] VITALS: BP 114/70
[2017-12-28] MEDS: DOCUSATE SODIUM 100 MG (COLACE) CAP PO SCH ×2 (11:02→21:33)
[2017-12-28 12:00] VITALS: BP 126/78
[2017-12-28] MEDS: SIMETHICONE 80 MG (MYLICON) CHEW PO SCH ×2 (15:27→21:33)
[2017-12-28] MEDS ORDERED: IBUPROFEN 800 MG (MOTRIN) TAB PO SCH (16:45)
[2017-12-28 16:48] VITALS: BP 131/75
[2017-12-28 21:30] VITALS: BP 132/89
[2017-12-29] MEDS: IBUPROFEN 800 MG (MOTRIN) TAB PO SCH ×2 (03:55→10:35)
[2017-12-29 04:00] VITALS: BP 112/66
[2017-12-29] MEDS: oxyCODONE/APAP 10/325MG (PERCOCET 10) TABLET PO PRN ×2 (06:30→11:46)
--- NOTE | 2017-12-29 07:48 | Progress Note-Standard ---
Standard Progress Note Progress Notes/Assess & Plan Date Seen by Provider: Dec 29, 2017 Time Seen by Provider: 07:47 Progress/Assessment & Plan No complaint. No ROM, no bleeding, + FM, ctx starting. No MEDINA, no blurry vision. Pt reports quitting her Diamox (for ICP) three weeks ago because she felt she didn't need it. Vital Signs Date Time Temp Pulse Resp B/P (MAP) Pulse Ox O2 Delivery O2 Flow Rate FiO2 12/26/17 23:22 98.0 80 18 124/64 (84) Room Air 12/26/17 19:12 98.1 92 18 129/62 (84) Room Air 12/26/17 18:36 93 121/66 (84) Room Air 12/26/17 18:15 85 120/61 (80) Room Air 12/26/17 18:00 85 18 125/66 (85) Room Air 12/26/17 17:45 Room Air 12/26/17 17:30 97.8 85 128/63 (84) Room Air 12/26/17 17:15 87 105/58 (74) Room Air 12/26/17 17:00 86 109/55 (73) Room Air 12/26/17 16:45 83 107/57 (74) Room Air 12/26/17 16:30 85 108/57 (74) Room Air 12/26/17 16:15 80 133/62 (85) Room Air 12/26/17 16:00 82 121/57 (78) Room Air 12/26/17 15:45 86 132/63 (86) Room Air 12/26/17 15:30 76 18 126/61 (82) Room Air 12/26/17 15:15 96.8 66 18 116/55 (75) Room Air 12/26/17 15:00 72 113/57 (75) Room Air 12/26/17 14:45 80 126/68 (87) Room Air 12/26/17 14:00 83 18 142/81 (101) Room Air VSS [employer] Abd gravid NT Ext ++edema, no homans VE - deferred - thick and closed per nurse report A/P Oligo at 38 weeks, Hx pseudotumor cerebri. IOL with pitocin today after several hours of pitocin administration yesterday. Anticipate vag delivery, prepared for c/s if needed. Would proceed with if S/Sx of increasing ICP. December 28, 2017 No c/o. Amb, voiding, bimal PO, good pain control. VSS [employer] Vital Signs 12/28/17 04:00 Temp 98.4 Pulse 106 Resp 18 B/P (MAP) 125/81 (96) Pulse Ox 96 O2 Delivery Room Air FF < umb, NT, Incision CDI No Homans, ++ Pretibial edema / WNL A/P POD 1 S/P doing well. Routine care December 29, 2017 Patient is without complaint. She is ablating, voiding, tolerating by mouth well, has good pain control. Vital Signs 12/29/17 04:00 Temp 98.1 Pulse 99 Resp 18 B/P (MAP) 112/66 (81) Pulse Ox 99 O2 Delivery Room Air Vital signs are stable. Patient is afebrile. Fundus is firm below the umbilicus and nontender. The incision is clean dry and intact per report Extremities show no clubbing cyanosis. There is no Homans sign. There is fairly markedly pretibial pitting edema that is normal at this point Assessment and plan postoperative day number 2 status post primary delivery doing well. Plan is for discharge home with follow-up in clinic. Final Diagnosis Term primary delivery KELLEE TADEO MD Dec 29, 2017 7:48 am
--- NOTE | 2017-12-29 07:51 | Discharge Summary ---
Discharge Summary Term operative delivery This patient is a 27-year-old 1 white female who was admitted on November from my clinic with fairly notable oligohydramnios. She was started on Pitocin but failed to make any progress in the day. On December 27 Pitocin induction was reinitiated patient failed to make any progress through the day. After being on 40 mU/m of Pitocin for an hour with no progress in labor decision made to proceed with delivery. C- section was done without event. On December 28 patient was ambulating, voiding, tolerating oral intake well had good pain control. Patient was stable through the day and had routine care. Now on December 29 this is postoperative day number 2 patient is again doing well she is ambulating, voiding, has good pain control and is requesting discharge home. Primary diagnoses this hospitalization is term primary delivery Secondary diagnoses are oligohydramnios, failure to progress in labor, history of pseudotumor cerebri Operation procedures include Pitocin induction of labor, spinal analgesia, primary delivery Patient was given appropriate discharge instructions verbally and in writing and a copy those are placed in the chart. Discharge medications are Percocet and Motrin and Colace. Patient is to resume her home medications which include her Diamox for her pseudotumor cerebri Clinical Quality Measures DVT/VTE Risk/Contraindication: Risk Factor Score Per Nursin RFS Level Per Nursing on Admit: 1=Low/No VTE PPX KELLEE TADEO MD Dec 29, 2017 7:51 am
[2017-12-29 10:31] VITALS: BP 120/68
[2017-12-29] MEDS: DOCUSATE SODIUM 100 MG (COLACE) CAP PO SCH (10:35)
[2017-12-29] MEDS: SIMETHICONE 80 MG (MYLICON) CHEW PO SCH (10:35)
== END 2017-12-29 14:35 | disposition home or self-care (01) | DRG 766 ==
LOC: LDRP 12:55
PROVIDERS: ADMIT Obstetrics & Gynecology; ATTEND Obstetrics & Gynecology
PROC: 3E033VJ Introduction of Other Hormone into Peripheral Vein, Percutaneous Approach (ICD-10-PCS; 2017-12-26)
PROC: 10D00Z1 Extraction of Products of Conception, Low, Open Approach (ICD-10-PCS; principal; 2017-12-27 16:36)
DX: O41.03X0 Oligohydramnios, third trimester, not applicable or unspecified (principal); O65.4 Obstructed labor due to fetopelvic disproportion, unspecified; O32.4XX0 Maternal care for high head at term, not applicable or unspecified; O99.353 Diseases of the nervous system complicating pregnancy, third trimester; G93.2 Benign intracranial hypertension; Z3A.38 38 weeks gestation of pregnancy; Z37.0 Single live birth
CPT/HCPCS: 36415; 85025; 86850; 86900; 86901; 88307; 94664

== ENCOUNTER → 2018-06-28 | Outpatient (CLI) | payer OTHER ==
[~2018-06-28] MED LIST changes: +DOCU100C37 PO; +Diamox; +IBUP-1780 PO; -OXYC-202 PO; +OXYC-465 PO; +OXYC1TAB12 PO; +PREN-37 PO
--- NOTE | 2018-06-28 11:23 | Diagnostic Imaging Report ---
INDICATION: Back pain. COMPARISON: None FINDINGS: Frontal and lateral views of the thoracic spine were obtained. Visualization of the upper thoracic spine is limited on the lateral projection. Alignment and vertebral heights are maintained. There is no fracture or destructive process. There are no large paraspinal masses. No significant degenerative disease is noted in the thoracic spine. Limited views of the lungs are clear. IMPRESSION: 1. No acute fracture or dislocation of the thoracic spine. Dictated by: Dictated on workstation # [id number]
--- NOTE | 2018-06-28 11:35 | Diagnostic Imaging Report ---
INDICATION: Chronic neck pain. COMPARISON: None FINDINGS: Frontal, lateral, and odontoid views of the cervical spine were submitted. Swimmer's view was provided on the thoracic spine series. The cervical spine is visualized up to the C7 level on the swimmer's projection. C7-T1 level is obscured. There is reversal of normal lordotic curvature of the cervical spine. Static alignment is otherwise maintained. Vertebral body heights are preserved. There is no evidence of fracture or bone destruction. No prevertebral soft tissue swelling is seen. No significant degenerative changes are noted. The open-mouth view demonstrates normal C1/C2 alignment. IMPRESSION: 1. Normal cervical spine series with limitations as described above. Dictated by: Dictated on workstation # [id number]
--- NOTE | 2018-06-28 11:57 | Diagnostic Imaging Report ---
INDICATION: Back pain. TIME OF EXAMINATION: 11:36 a.m. FINDINGS: Three views lumbar spine were obtained. Curvature and alignment is normal. Vertebral body heights and disc spaces are well-maintained. No fracture or subluxation is seen. IMPRESSION: No acute bony abnormality is detected. Dictated by: Dictated on workstation # [id number]
== END ==
LOC: RAD 10:53
PROVIDERS: ATTEND Family Medicine
DX: M54.2 Cervicalgia (principal); M54.6 Pain in thoracic spine; M54.5 Low back pain
CPT/HCPCS: 72040; 72072; 72100

== ENCOUNTER 2018-09-03 05:51 | Outpatient (CLI) | payer OTHER ==
[~2018-09-03] VITALS: Ht 165.1 cm; Wt 111.1 kg
[2018-09-03] MEDS ORDERED: TRAM50TA2 PO (12:01)
== END 2018-09-03 12:16 | disposition home or self-care (01) ==
LOC: PREOP 05:51
PROVIDERS: ATTEND Surgery
DX: Z01.818 Encounter for other preprocedural examination (principal)

== ENCOUNTER 2018-09-20 07:56 | Day surgery (SDC) | payer OTHER ==
[~2018-09-20] VITALS: Ht 165.1 cm; Wt 111.1 kg
[~2018-09-20 07:56] MED LIST changes: +TRAM50TA2 PO
--- OUTSIDE RECORDS SUMMARY | 2018-09-20 07:59 | XMS REPORT | Clinical Summary ---
Author Author [facility] Organization [facility] Address Unknown Phone Unavailable Care Team Providers Care Motorcycle Deliverer Name Role Phone Jose Greenwood MD Unavailable Cristofer Garcia MD PCP Source Comments Some departments are not documenting in the electronic medical record. If you do not see the information that you expected, contact Release of Information in the Health Information Management department at [phone] for further assistance in locating additional records.[facility] Allergies Comments Active Allergy Reactions Severity Noted Date Sumatriptan Succinate SHORTNESS OF 02/17/2014 BREATH Ketorolac SHORTNESS OF Medium 09/03/2017 BREATH Medications End Date Status Medication Sig Dispensed Refills Start Date Active acetaminophen (TYLENOL) Take 500 mg 0 500 mg tablet by mouth every 6 hours as needed for Pain. Max of 4,000 mg of acetaminophen in 24 hours. Active ALPRAZolam (XANAX) 0.25 Take 0.25 mg 0 mg tablet by mouth at bedtime as needed for Anxiety. Active cetirizine (ZYRTEC) 1 Take 5 mg by 0 mg/mL oral solution mouth daily. Active topiramate 100 mg CSpX Take by 0 mouth. Active lisdexamfetamine Take 30 mg by 0 (VYVANSE) 30 mg capsule mouth every morning Active zolpidem (AMBIEN) 10 mg Take 10 mg by 0 tablet mouth at bedtime as needed for Sleep. Active acetaZOLAMIDE (DIAMOX Take 500 mg 0 SEQUELS) 500 mg by mouth capsuleIndications: 2 po twice daily. bid Active Problems Problem Noted Date IIH (idiopathic intracranial hypertension) 02/17/2014 Papilledema 02/17/2014 Family History Medical History Relation Name Comments Thyroid Disease Brother Diabetes Father Cataract Maternal Grandmother Hypertension Mother Thyroid Disease Mother Autoimmune Disease Other Neice Cancer Paternal Brain Tumor Grandfather Thyroid Disease Paternal Grandmother Amblyopia Neg Hx Blindness Neg Hx Coronary Artery Disease Neg Hx Glaucoma Neg Hx Macular Degen Neg Hx Neurologic Disorder Neg Hx Retinal Detachment Neg Hx Strabismus Neg Hx Stroke Neg Hx Relation Name Status Comments Brother Father Maternal Grandmother Mother Other Neice Paternal Grandfather Paternal Grandmother Social History Date Tobacco Use Types Packs/Day Years Used Quit: 07/02/2011 Former Smoker Cigarettes 1 5 Smokeless Tobacco: Never Used Alcohol Use Drinks/Week oz/Week Comments No Sex Assigned at Date Recorded Not on file Industry Job Start Date Occupation Not on file Not on file Not on file Travel End Travel History Travel Start No recent travel history available. Last Filed Vital Signs Time Taken Vital Sign Reading 09/03/2017 10:55 AM MRI MANAGER Blood Pressure 106/66 09/03/2017 10:55 AM MRI MANAGER Pulse 96 - Temperature - - Respiratory Rate - - Oxygen Saturation - - Inhaled Oxygen - Concentration 09/13/2017 3:23 PM CDT Weight 106.6 kg (235 lb) 09/13/2017 3:23 PM CDT Height 165.1 cm (5' 5") 09/13/2017 3:23 PM CDT Body Mass Index 39.11 Plan of Treatment Health Maintenance Due Date Last Done Comments PHYSICAL (COMPREHENSIVE) 1996 EXAM HIV SCREENING 2004 DTAP/TDAP VACCINES (1 - 2007 Tdap) CERVICAL CANCER SCREENING 2010 INFLUENZA VACCINE 01/30/2018 Results Not on filefrom Last 3 Months Insurance Type Payer Benefit Subscriber ID Effective Phone Address Plan / Dates Group HMO CIGNA CIGNA NON xxxxxxxxxxx 2014-P PPO/EPO resent Advance Directives Patient has advance care planning documents on file. For more information, please contact: [facility] [address] [place] [address]
--- OUTSIDE RECORDS SUMMARY | 2018-09-20 08:04 | XMS REPORT | Continuity of Care Document ---
Author Author [facility] Address Unknown Phone Unavailable Allergies Active Description Code Type Severity Reaction Onset Reported/Identified Relationship to Patient Clinical Status Yes Imitrex Drug Allergy N/A N/A 04/01/2013 Yes Toradol Drug Allergy N/A N/A 04/01/2013 Yes sumatriptan [id number] Drug Allergy Unknown N/A 12/16/2013 Yes sumatriptan succinate [id number] Drug Allergy Unknown N/A 12/16/2013 Yes Torad Torad Unknown N/A 12/16/2013 Yes ketorolac [id number] Drug Allergy Unknown made migraine w 02/10/2016 Yes ketorolac [id number] Drug Allergy Mild made migraine w 12/27/2017 Medications There is no data. 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 03/13/2013 723.1 CERVICALGIA 03/13/2013 724.2 LUMBAGO/ LOW BACK PAIN 03/13/2013 ISAAC DURAN DO 723.1 CERVICALGIA 03/13/2013 ISAAC DURAN DO 724.2 LUMBAGO/ LOW BACK PAIN 03/13/2013 ISAAC DURAN DO 723.1 CERVICALGIA 03/13/2013 ISAAC DURAN DO 724.2 LUMBAGO/ LOW BACK PAIN 03/13/2013 ISAAC DURAN DO 723.1 CERVICALGIA 03/13/2013 ISAAC DURAN DO 724.2 LUMBAGO/ LOW BACK PAIN 03/13/2013 ZACHARY STERLING, WILIAN Randle 723.1 CERVICALGIA 03/13/2013 WILIAN SHARMA MD 724.2 LUMBAGO/ LOW BACK PAIN 03/13/2013 [facility] CERV[facility] 03/13/2013 GUALBERTO SALCIDO 724.2 LUMBAGO/ LOW BACK PAIN 03/13/2013 NICOL PHD, TAMMY Camp 723.1 CERVICALGIA 03/13/2013 NICOL PHD, TAMMY Camp 724.2 LUMBAGO/ LOW BACK PAIN 03/13/2013 NICOL PHD, TAMMY Camp 723.1 CERVICALGIA 03/13/2013 NICOL PHD, TAMMY Camp 724.2 LUMBAGO/ LOW BACK PAIN 03/13/2013 NICOL PHD, TAMMY Camp 723.1 CERVICALGIA 03/13/2013 NICOL PHD, TAMMY Camp 724.2 LUMBAGO/ LOW BACK PAIN 03/13/2013 NICOL LSCS, GUALBERTO R 723.1 CERVICALGIA 03/13/2013 NICOL LSCS, GUALBERTO R 724.2 LUMBAGO/ LOW BACK PAIN 03/13/2013 FREDO TIWARI APRN R 723.1 CERVICALGIA 03/13/2013 FREDO TIWARI APRN R 724.2 LUMBAGO/ LOW BACK PAIN 03/13/2013 NICOL LSCS, GUALBERTO R 723.1 CERVICALGIA 03/13/2013 NICOL LSCS, GUALBERTO R 724.2 LUMBAGO/ LOW BACK PAIN 03/13/2013 NICOL LSCS, GUALBERTO R 723.1 CERVICALGIA 03/13/2013 NICOL LSCS, GUALBERTO R 724.2 LUMBAGO/ LOW BACK PAIN 03/13/2013 DURAN DO, ISAAC K 723.1 CERVICALGIA 03/13/2013 DURAN DO, ISAAC K 724.2 LUMBAGO/ LOW BACK PAIN 03/13/2013 NICOL LSCS, GUALBERTO R 723.1 CERVICALGIA 03/13/2013 NICOL LSCS, GUALBERTO R 724.2 LUMBAGO/ LOW BACK PAIN 03/13/2013 DURAN DO, ISAAC K 723.1 CERVICALGIA 03/13/2013 DURAN DO, ISAAC K 724.2 LUMBAGO/ LOW BACK PAIN 03/13/2013 NICOL LSCS, GUALBERTO R 723.1 CERVICALGIA 03/13/2013 NICOL LSCS, GUALBERTO R 724.2 LUMBAGO/ LOW BACK PAIN 03/13/2013 KARIE 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, FREDO R 723.1 CERVICALGIA 03/13/2013 LORRI TIWARI APRNINA R 724.2 LUMBAGO/ LOW BACK PAIN 03/13/2013 DURAN DO, ISAAC K 723.1 CERVICALGIA 03/13/2013 DURAN DO, ISAAC K 724.2 LUMBAGO/ LOW BACK PAIN 03/13/2013 NICOL LSCS, GUALBERTO R 723.1 CERVICALGIA 03/13/2013 NICOL LSCS, GUALBERTO R 724.2 LUMBAGO/ LOW BACK PAIN 03/13/2013 KARIE 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, FREDO R 723.1 CERVICALGIA 03/13/2013 KARIE 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, FREDO R 724.2 LUMBAGO/ LOW BACK PAIN 03/13/2013 DURAN DO, ISAAC K 723.1 CERVICALGIA 03/13/2013 DURAN DO, ISAAC K 724.2 LUMBAGO/ LOW BACK PAIN 03/13/2013 KARIE 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, FREDO R 723.1 CERVICALGIA 03/13/2013 KARIE 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, FREDO R 724.2 LUMBAGO/ LOW BACK PAIN 03/13/2013 DURAN DO, ISAAC K 723.1 CERVICALGIA 03/13/2013 DURAN DO, ISAAC K 724.2 LUMBAGO/ LOW BACK PAIN 03/13/2013 DURAN DO, ISAAC K 723.1 CERVICALGIA 03/13/2013 DURAN DO, ISAAC K 724.2 LUMBAGO/ LOW BACK PAIN 03/13/2013 NICOL LSCS, GUALBERTO R 723.1 CERVICALGIA 03/13/2013 NICOL LSCS, GUALBERTO R 724.2 LUMBAGO/ LOW BACK PAIN 03/13/2013 NICOL LSCS, GUALBERTO R 723.1 CERVICALGIA 03/13/2013 NICOL LSCS, GUALBERTO R 724.2 LUMBAGO/ LOW BACK PAIN 03/13/2013 DURAN DO, ISAAC K 723.1 CERVICALGIA 03/13/2013 DURAN DO, ISAAC K 724.2 LUMBAGO/ LOW BACK PAIN 03/13/2013 DURAN DO, ISAAC K 723.1 CERVICALGIA 03/13/2013 DURAN DO, ISAAC K 724.2 LUMBAGO/ LOW BACK PAIN 03/13/2013 DURAN DO, ISAAC K 723.1 CERVICALGIA 03/13/2013 DURAN DO, ISAAC K 724.2 LUMBAGO/ LOW BACK PAIN 03/13/2013 SHREE 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, IRIS A 723.1 CERVICALGIA 03/13/2013 SHREE 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, IRIS A 724.2 LUMBAGO/ LOW BACK PAIN 03/13/2013 MICKI STERLING, UNA 723.1 CERVICALGIA 03/13/2013 UNA SWEET MD 724.2 LUMBAGO/ LOW BACK PAIN 04/01/2013 DURAN DO, ISAAC K V70.0 ROUTINE GENERAL MEDICAL EXAMINATION AT A HEALTH CARE FACILITY 04/01/2013 DURAN DO, ISAAC K V70.0 ROUTINE GENERAL MEDICAL EXAMINATION AT A HEALTH CARE FACILITY 04/01/2013 DURAN DO, ISAAC K V70.0 ROUTINE GENERAL MEDICAL EXAMINATION AT A HEALTH CARE FACILITY 04/01/2013 ZACHARY STERLING, WILIAN Randle V70.0 ROUTINE GENERAL MEDICAL EXAMINATION AT A HEALTH CARE FACILITY 04/01/2013 [facility], [place] R V70.0 ROUTINE GENERAL MEDICAL EXAMINATION AT A HEALTH CARE FACILITY 04/01/2013 NICOL BARRY, TAMMY Camp V70.0 ROUTINE GENERAL MEDICAL EXAMINATION AT A HEALTH CARE FACILITY 04/01/2013 NICOL BARRY, TAMMY Camp V70.0 ROUTINE GENERAL MEDICAL EXAMINATION AT A HEALTH CARE FACILITY 04/01/2013 NICOL BARRY, TAMMY Camp V70.0 ROUTINE GENERAL MEDICAL EXAMINATION AT A HEALTH CARE FACILITY 04/01/2013 [facility], [place] R V70.0 ROUTINE GENERAL MEDICAL EXAMINATION AT A HEALTH CARE FACILITY 04/01/2013 FREDO TIWARI APRN R V70.0 ROUTINE GENERAL MEDICAL EXAMINATION AT A HEALTH CARE FACILITY 04/01/2013 [facility], [place] R V70.0 ROUTINE GENERAL MEDICAL EXAMINATION AT A HEALTH CARE FACILITY 04/01/2013 [facility], [place] R V70.0 ROUTINE GENERAL MEDICAL EXAMINATION AT A HEALTH CARE FACILITY 04/01/2013 DURAN DO, ISAAC K V70.0 ROUTINE GENERAL MEDICAL EXAMINATION AT A HEALTH CARE FACILITY 04/01/2013 [facility], [place] R V70.0 ROUTINE GENERAL MEDICAL EXAMINATION AT A HEALTH CARE FACILITY 04/01/2013 DURAN DO, ISAAC K V70.0 ROUTINE GENERAL MEDICAL EXAMINATION AT A HEALTH CARE FACILITY 04/01/2013 [facility], [place] R V70.0 ROUTINE GENERAL MEDICAL EXAMINATION AT A HEALTH CARE FACILITY 04/01/2013 FREDO TIWARI APRN R V70.0 ROUTINE GENERAL MEDICAL EXAMINATION AT A HEALTH CARE FACILITY 04/01/2013 DURAN DO, ISAAC K V70.0 ROUTINE GENERAL MEDICAL EXAMINATION AT A HEALTH CARE FACILITY 04/01/2013 [facility], [place] R V70.0 ROUTINE GENERAL MEDICAL EXAMINATION AT A HEALTH CARE FACILITY 04/01/2013 KARIE HICKS, FREDO R V70.0 ROUTINE GENERAL MEDICAL EXAMINATION AT A HEALTH CARE FACILITY 04/01/2013 DURAN DO, ISAAC K V70.0 ROUTINE GENERAL MEDICAL EXAMINATION AT A HEALTH CARE FACILITY 04/01/2013 KARIE HICKS, FREDO R V70.0 ROUTINE GENERAL MEDICAL EXAMINATION AT A HEALTH CARE FACILITY 04/01/2013 DURAN DO, ISAAC K V70.0 ROUTINE GENERAL MEDICAL EXAMINATION AT A HEALTH CARE FACILITY 04/01/2013 DURAN DO, ISAAC K V70.0 ROUTINE GENERAL MEDICAL EXAMINATION AT A HEALTH CARE FACILITY 04/01/2013 [facility], [place] R V70.0 ROUTINE GENERAL MEDICAL EXAMINATION AT A HEALTH CARE FACILITY 04/01/2013 [facility], [place] R V70.0 ROUTINE GENERAL MEDICAL EXAMINATION AT A HEALTH CARE FACILITY 04/01/2013 DURAN DO, ISAAC K V70.0 ROUTINE GENERAL MEDICAL EXAMINATION AT A HEALTH CARE FACILITY 04/01/2013 DURAN DO, ISAAC K V70.0 ROUTINE GENERAL MEDICAL EXAMINATION AT A HEALTH CARE FACILITY 04/01/2013 DURAN DO, ISAAC K V70.0 ROUTINE GENERAL MEDICAL EXAMINATION AT A HEALTH CARE FACILITY 04/01/2013 SHREE HICKS, IRIS A V70.0 ROUTINE GENERAL MEDICAL EXAMINATION AT A HEALTH CARE FACILITY 04/01/2013 UNA SWEET MD V70.0 ROUTINE GENERAL MEDICAL EXAMINATION AT A HEALTH CARE FACILITY 04/02/2013 DURAN DO, ISAAC K V04.81 FLU SHOT 04/02/2013 DURAN DO, ISAAC K V04.81 FLU SHOT 04/02/2013 DURAN DO, ISAAC K V04.81 FLU SHOT 04/02/2013 ZACHARY STERLING, WILIAN Randle V04.81 FLU SHOT 04/02/2013 [facility], [place] R V04.81 FLU SHOT 04/02/2013 NICOL PHD, TAMMY Camp V04.81 FLU SHOT 04/02/2013 NICOL PHD, TAMMY Camp V04.81 FLU SHOT 04/02/2013 NICOL PHD, TAMMY Camp V04.81 FLU SHOT 04/02/2013 [facility], [place] R V04.81 FLU SHOT 04/02/2013 KARIE HICKS, FREDO R V04.81 FLU SHOT 04/02/2013 [facility], [place] R V04.81 FLU SHOT 04/02/2013 NICOL LSCS, GUALBERTO R V04.81 FLU SHOT 04/02/2013 DURAN DO, ISAAC K V04.81 FLU SHOT 04/02/2013 NICOL LSCS, GUALBERTO R V04.81 FLU SHOT 04/02/2013 DURAN DO, ISAAC K V04.81 FLU SHOT 04/02/2013 NICOL LSCS, GUALBERTO R V04.81 FLU SHOT 04/02/2013 KARIE 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, FREDO R V04.81 FLU SHOT 04/02/2013 DURAN DO, ISAAC K V04.81 FLU SHOT 04/02/2013 NICOL LSCS, GUALBERTO R V04.81 FLU SHOT 04/02/2013 KARIE 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, FREDO R V04.81 FLU SHOT 04/02/2013 DURAN DO, ISAAC K V04.81 FLU SHOT 04/02/2013 KARIE 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, FREDO R V04.81 FLU SHOT 04/02/2013 DURAN DO, ISAAC K V04.81 FLU SHOT 04/02/2013 DURAN DO, ISAAC K V04.81 FLU SHOT 04/02/2013 [facility], [place] R V04.81 FLU SHOT 04/02/2013 [place] [facility], GUALBERTO R V04.81 FLU SHOT 04/02/2013 DURAN DO, ISAAC K V04.81 FLU SHOT 04/02/2013 DURAN DO, ISAAC K V04.81 FLU SHOT 04/02/2013 DURAN DO, ISAAC K V04.81 FLU SHOT 04/02/2013 SHREE 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, IRIS A V04.81 FLU SHOT 04/02/2013 MICKI STERLING, UNA V04.81 FLU SHOT 05/01/2013 DURAN DO, ISAAC K 784.0 HEADACHE 05/01/2013 ZACHARY STERLING, WILIAN Randle 784.0 HEADACHE 05/01/2013 [facility], [place] R 784.0 HEADACHE 05/01/2013 NICOL PHD, TAMMY Camp 784.0 HEADACHE 05/01/2013 NICOL PHD, TAMMY Camp 784.0 HEADACHE 05/01/2013 NICOL PHD, TAMMY Camp 784.0 HEADACHE 05/01/2013 [facility], [place] R 784.0 HEADACHE 05/01/2013 KARIE 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, FREDO R 784.0 HEADACHE 05/01/2013 [facility], [place] R 784.0 HEADACHE 05/01/2013 [facility] LSCS, GUALBERTO R 784.0 HEADACHE 05/01/2013 DURAN DO, ISAAC K 784.0 HEADACHE 05/01/2013 NICOL LSCS, GUALBERTO R 784.0 HEADACHE 05/01/2013 DURAN DO, ISAAC K 784.0 HEADACHE 05/01/2013 NICOL LSCS, GUALBERTO R 784.0 HEADACHE 05/01/2013 KARIE 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, FREDO R 784.0 HEADACHE 05/01/2013 DURAN DO, ISAAC K 784.0 HEADACHE 05/01/2013 NIOCL LSCS, GUALBERTO R 784.0 HEADACHE 05/01/2013 KARIE 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, FREDO R 784.0 HEADACHE 05/01/2013 DURAN DO, ISAAC K 784.0 HEADACHE 05/01/2013 KARIE 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, FREDO R 784.0 HEADACHE 05/01/2013 DURAN DO, ISAAC K 784.0 HEADACHE 05/01/2013 DURAN DO, ISAAC K 784.0 HEADACHE 05/01/2013 NICOL LSCS, GUALBERTO R 784.0 [facility] 05/01/2013 DURAN DO, ISAAC K 784.0 HEADACHE 05/01/2013 DURAN DO, ISAAC K 784.0 HEADACHE 05/01/2013 DURAN DO, ISAAC K 784.0 HEADACHE 05/01/2013 SHREE 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, IRIS A 784.0 HEADACHE 05/01/2013 MICKI STERLING, UNA 784.0 HEADACHE 07/03/2013 [facility], [place] R 300.00 AN ANXIETY UNSPEC 07/03/2013 [facility], [place] R 300.4 MO DYSTHYMIC DISORDER 07/03/2013 TAMMY CAMARENA PHD 300.00 AN ANXIETY UNSPEC 07/03/2013 TAMMY CAMARENA PHD 300.4 MO DYSTHYMIC DISORDER 07/03/2013 TAMMY CAMARENA PHD 300.00 AN ANXIETY UNSPEC 07/03/2013 TAMMY CAMARENA PHD 300.4 MO DYSTHYMIC DISORDER 07/03/2013 TAMMY CAMARENA PHD 300.00 AN ANXIETY UNSPEC 07/03/2013 TAMMY CAMARENA PHD 300.4 MO DYSTHYMIC DISORDER 07/03/2013 [facility], [place] R 300.00 AN ANXIETY UNSPEC 07/03/2013 [facility], [place] R 300.4 MO DYSTHYMIC DISORDER 07/03/2013 KARIE HICKS FREDO R 300.00 AN ANXIETY UNSPEC 07/03/2013 KARIE HICKS FREDO R 300.4 MO DYSTHYMIC DISORDER 07/03/2013 [facility], [place] R 300.00 AN ANXIETY UNSPEC 07/03/2013 [facility], [place] R 300.4 MO DYSTHYMIC DISORDER 07/03/2013 [facility], [place] R 300.00 AN ANXIETY UNSPEC 07/03/2013 [facility], [place] R 300.4 MO DYSTHYMIC DISORDER 07/03/2013 DURAN DO, ISAAC K 300.00 AN ANXIETY UNSPEC 07/03/2013 DURAN DO, ISAAC K 300.4 MO DYSTHYMIC DISORDER 07/03/2013 [facility], [place] R 300.00 AN ANXIETY UNSPEC 07/03/2013 [facility], [place] R 300.4 MO DYSTHYMIC DISORDER 07/03/2013 ROGER FORD ISAAC K 300.00 AN ANXIETY UNSPEC 07/03/2013 DURAN DOLAURAA K 300.4 MO DYSTHYMIC DISORDER 07/03/2013 [facility], [place] R 300.00 AN ANXIETY UNSPEC 07/03/2013 [facility], [place] R 300.4 MO DYSTHYMIC DISORDER 07/03/2013 LORRI TIWARI APRNINA R 300.00 AN ANXIETY UNSPEC 07/03/2013 KARIE HICKS FREDO R 300.4 MO DYSTHYMIC DISORDER 07/03/2013 LAURA DURAN DOA K 300.00 AN ANXIETY UNSPEC 07/03/2013 DURAN DO ISAAC K 300.4 MO DYSTHYMIC DISORDER 07/03/2013 [facility], [place] R 300.00 AN ANXIETY UNSPEC 07/03/2013 [facility], [place] R 300.4 MO DYSTHYMIC DISORDER 07/03/2013 KARIE HICKS FREDO R 300.00 AN ANXIETY UNSPEC 07/03/2013 LORRI TIWARI APRNINA R 300.4 MO DYSTHYMIC DISORDER 07/03/2013 DURAN DO ISAAC K 300.00 AN ANXIETY UNSPEC 07/03/2013 DURAN DO, ISAAC K 300.4 MO DYSTHYMIC DISORDER 07/03/2013 KARIE HICKS FREDO R 300.00 AN ANXIETY UNSPEC 07/03/2013 KARIE HICKS FREDO R 300.4 MO DYSTHYMIC DISORDER 07/03/2013 DURAN DO, ISAAC K 300.00 AN ANXIETY UNSPEC 07/03/2013 DURAN DO, ISAAC K 300.4 MO DYSTHYMIC DISORDER 07/03/2013 DURAN DO, ISAAC K 300.00 AN ANXIETY UNSPEC 07/03/2013 DURAN DO, ISAAC K 300.4 MO DYSTHYMIC DISORDER 07/03/2013 [facility], [place] R 300.00 AN ANXIETY UNSPEC 07/03/2013 [facility], [place] R 300.4 MO DYSTHYMIC DISORDER 07/03/2013 [facility], [place] R 300.00 AN ANXIETY UNSPEC 07/03/2013 [facility], [place] R 300.4 MO DYSTHYMIC DISORDER 07/03/2013 DURAN DO, ISAAC K 300.00 AN ANXIETY UNSPEC 07/03/2013 DURAN DO, ISAAC K 300.4 MO DYSTHYMIC DISORDER 07/03/2013 DURAN DO, ISAAC K 300.00 AN ANXIETY UNSPEC 07/03/2013 DURAN DO, ISAAC K 300.4 MO DYSTHYMIC DISORDER 07/03/2013 DURAN DO, ISAAC K 300.00 AN ANXIETY UNSPEC 07/03/2013 DURAN DO, ISAAC K 300.4 MO DYSTHYMIC DISORDER 07/03/2013 SHREE HICKS, IRIS A 300.00 AN ANXIETY UNSPEC 07/03/2013 SHREE APRN, IRIS A 300.4 MO DYSTHYMIC DISORDER 07/03/2013 UNA SWEET MD 300.00 AN ANXIETY UNSPEC 07/03/2013 UNA SWEET MD 300.4 MO DYSTHYMIC DISORDER 07/16/2013 TAMMY CAMARENA PHD 311 MO DEPRESS NOS 07/16/2013 TAMMY CAMARENA PHD 311 MO DEPRESS NOS 07/16/2013 TAMMY CAMARENA PHD 311 MO DEPRESS NOS 07/16/2013 [facility], [place] R 311 MO DEPRESS NOS 07/16/2013 FREDO TIWARI APRN 311 MO DEPRESS NOS 07/16/2013 [facility], [place] R 311 MO DEPRESS NOS 07/16/2013 [facility], [place] R 311 MO DEPRESS NOS 07/16/2013 DURAN DO, ISAAC K 311 MO DEPRESS NOS 07/16/2013 [facility], [place] R 311 MO DEPRESS NOS 07/16/2013 ROGER FORD, ISAAC K 311 MO DEPRESS NOS 07/16/2013 [facility], [place] R 311 MO DEPRESS NOS 07/16/2013 KARIE 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, FREDO R 311 MO DEPRESS NOS 07/16/2013 DURAN DO, ISAAC K 311 MO DEPRESS NOS 07/16/2013 [facility] MO DEPRESS NOS 07/16/2013 KARIE 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, FREDO R 311 MO DEPRESS NOS 07/16/2013 DURAN DO, ISAAC K 311 MO DEPRESS NOS 07/16/2013 KARIE 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, FREDO R 311 MO DEPRESS NOS 07/16/2013 DURAN DO, ISAAC K 311 MO DEPRESS NOS 07/16/2013 DURAN DO, ISAAC K 311 MO DEPRESS NOS 07/16/2013 [facility] 311 MO DEPRESS NOS 07/16/2013 [facility] 311 MO DEPRESS NOS 07/16/2013 DURAN DO, ISAAC K 311 MO DEPRESS NOS 07/16/2013 DURAN DO, ISAAC K 311 MO DEPRESS NOS 07/16/2013 DURAN DO, ISAAC K 311 MO DEPRESS NOS 07/16/2013 SHREE HICKS, IRIS A 311 MO DEPRESS NOS 07/16/2013 UNA SWEET MD 311 MO DEPRESS NOS 07/18/2013 GAY HUITRON MD Ot 278.00 OBESITY, NOS 07/18/2013 GAY HUITRON MD Ot 346.90 MIGRAINE UNSPECIFIED W/O INTRACT MGRN W/ 07/18/2013 GAY HUITRON MD Ot 721.0 CERVICAL SPONDYLOSIS 07/18/2013 GAY HUITRON MD Ot 722.4 CERVICAL DISC DEGEN 07/18/2013 AGY HUITRON MD Ot 723.8 CERVICAL SYNDROME NEC 07/18/2013 GAY HUITRON MD Ot V58.69 OT MED,LT,CURRENT USE 07/18/2013 GAY HUITRON MD Ot V85.36 BODY MASS INDEX 36.0-36.9, ADULT 07/24/2013 NICOL PHD, TAMMY Camp 626.4 IRREGULAR MENSTRUAL CYCLE 07/24/2013 [facility], [place] R 626.4 IRREGULAR MENSTRUAL CYCLE 07/24/2013 KARIE HICKS, FREDO R 626.4 IRREGULAR MENSTRUAL CYCLE 07/24/2013 [facility], [place] R 626.4 IRREGULAR MENSTRUAL CYCLE 07/24/2013 [facility], [place] R 626.4 IRREGULAR MENSTRUAL CYCLE 07/24/2013 ROGER FORD, ISAAC K 626.4 IRREGULAR MENSTRUAL CYCLE 07/24/2013 [facility]SCS, GUALBERTO R 626.4 IRREGULAR MENSTRUAL CYCLE 07/24/2013 DURAN DO, ISAAC K 626.4 IRREGULAR MENSTRUAL CYCLE 07/24/2013 [facility], GUAL[place]ERT[place] R 626.4 IRREGULAR MENSTRUAL CYCLE 07/24/2013 KARIE 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, FREDO R 626.4 IRREGULAR MENSTRUAL CYCLE 07/24/2013 DURAN DO, ISAAC K 626.4 IRREGULAR MENSTRUAL CYCLE 07/24/2013 [facility] LSC[facility], GUAL[place]ERT[place] R 626.4 IRREGULAR MENSTRUAL CYCLE 07/24/2013 KARIE HICKS FREDO R 626.4 IRREGULAR MENSTRUAL CYCLE 07/24/2013 DURAN DO, ISAAC K 626.4 IRREGULAR MENSTRUAL CYCLE 07/24/2013 KARIE HICKS FREDO R 626.4 IRREGULAR MENSTRUAL CYCLE 07/24/2013 DURAN DO, ISAAC K 626.4 IRREGULAR MENSTRUAL CYCLE 07/24/2013 DURAN DO, ISAAC K 626.4 IRREGULAR MENSTRUAL CYCLE 07/24/2013 [facility] 626.4 IRREGULAR MENSTRUAL CYCLE 07/24/2013 [facility] 626.4 IRREGULAR MENSTRUAL CYCLE 07/24/2013 DURAN DO, ISAAC K 626.4 IRREGULAR MENSTRUAL CYCLE 07/24/2013 DURAN DO, ISAAC K 626.4 IRREGULAR MENSTRUAL CYCLE 07/24/2013 DURAN DO, ISAAC K 626.4 IRREGULAR MENSTRUAL CYCLE 07/24/2013 SHREE HICKS IRIS A 626.4 IRREGULAR MENSTRUAL CYCLE 07/24/2013 UNA SWEET MD 626.4 IRREGULAR MENSTRUAL CYCLE 09/19/2013 [facility] 314.00 ADHD INATTENTIVE 09/19/2013 [facility] 314.00 ADHD INATTENTIVE 09/19/2013 DURAN DO, ISAAC K 314.00 ADHD INATTENTIVE 09/19/2013 [facility] 314.00 ADHD INATTENTIVE 09/19/2013 DURAN DO, ISAAC K 314.00 ADHD INATTENTIVE 09/19/2013 [facility] 314.00 ADHD INATTENTIVE 09/19/2013 LORRI TIWARI APRNINA R 314.00 ADHD INATTENTIVE 09/19/2013 DURAN DO ISAAC K 314.00 ADHD INATTENTIVE 09/19/2013 [facility] 314.00 ADHD INATTENTIVE 09/19/2013 KARIE 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, FREDO R 314.00 ADHD INATTENTIVE 09/19/2013 DURAN DO, ISAAC K 314.00 ADHD INATTENTIVE 09/19/2013 KARIE MARQUEZN, FREDO R 314.00 ADHD INATTENTIVE 09/19/2013 DURAN DO, ISAAC K 314.00 ADHD INATTENTIVE 09/19/2013 DURAN DO, ISAAC K 314.00 ADHD INATTENTIVE 09/19/2013 [facility], [place] R 314.00 ADHD INATTENT[facility]/19/[facility] 314.00 ADHD INATTENTIVE 09/19/2013 DURAN DO, ISAAC K 314.00 ADHD INATTENTIVE 09/19/2013 DURAN DO, ISAAC K 314.00 ADHD INATTENTIVE 09/19/2013 DURAN DO, ISAAC K 314.00 ADHD INATTENTIVE 09/19/2013 IRIS SWANN APRN A 314.00 ADHD INATTENTIVE 09/19/2013 MICKI STERLING, UNA 314.00 ADHD INATTENTIVE 10/24/2013 DURAN DO, ISAAC K 787.91 DIARRHEA 10/24/2013 [facility], [place] R 787.91 DI[place]A 10/24/2013 DURAN DO, ISAAC K 787.91 [place] 10/24/2013 [facility], [place] R 787.91 [place] 10/24/2013 KARIE HICKS, FREDO R 787.91 [place] 10/24/2013 DURAN DO, ISAAC K 787.91 DIARR[place] 10/24/2013 [facility], [place] R 787.91 [place] 10/24/2013 KARIE HICKS, FREDO R 787.91 DI[place] 10/24/2013 DURAN DO, ISAAC K 787.91 DIARR[place]A 10/24/2013 KARIE HICKS FREDO R 787.91 DIARR[place]A 10/24/2013 DURAN DO, ISAAC K 787.91 DIARRHEA 10/24/2013 DURAN DO, ISAAC K 787.91 DIARR[place]A 10/24/2013 [facility], [place] R 787.91 DI[place]A 10/24/2013 [facility], [place] R 787.91 DI[place] 10/24/2013 DURAN DO, ISAAC K 787.91 DIARRHEA 10/24/2013 DURAN DO, ISAAC K 787.91 DIARRHEA 10/24/2013 DURAN DO, ISAAC K 787.91 DIARRHEA 10/24/2013 IRIS SWANN APRN A 787.91 DIARRHEA 10/24/2013 MICKI STERLING, UNA 787.91 DIARRHEA 12/04/2013 DURAN DO, ISAAC K 054.9 HERPES SIMPLEX WITHOUT COMPLICATION 12/04/2013 DURAN DO, ISAAC K 368.9 UNSPECIFIED VISUAL DISTURBANCE 12/04/2013 DURAN DO, ISAAC K 786.59 OTHER CHEST PAIN 12/04/2013 [facility], GUALBERTO R 054.9 HERPES SIMPLEX WITHOUT COMPLICATION 12/04/2013 [facility], GUAL[place]ERT[place] R 368.9 UNSPECIFIED VISUAL DISTURBANCE 12/04/2013 [facility], GUAL[place] R 786.59 OTHER CHEST PAIN 12/04/2013 KARIE 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, FREDO R 054.9 HERPES SIMPLEX WITHOUT COMPLICATION 12/04/2013 KARIE 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, FREDO R 368.9 UNSPECIFIED VISUAL DISTURBANCE 12/04/2013 KARIE 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, FREDO R 786.59 OTHER CHEST PAIN 12/04/2013 DURAN DO, ISAAC K 054.9 HERPES SIMPLEX WITHOUT COMPLICATION 12/04/2013 DURAN DO, ISAAC K 368.9 UNSPECIFIED VISUAL DISTURBANCE 12/04/2013 DURAN DO, ISAAC K 786.59 OTHER CHEST PAIN 12/04/2013 [facility], GUAL[place]ERTO R 054.9 HERPES SIMPLEX WITHOUT COMPLICATION 12/04/2013 [facility], G[place] R 368.9 UNSPECIFIED VISUAL DISTURBANCE 12/04/2013 [facility] 786.59 OTHER CHEST PAIN 12/04/2013 KARIE 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, FREDO R 054.9 HERPES SIMPLEX WITHOUT COMPLICATION 12/04/2013 KARIE 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, FREDO R 368.9 UNSPECIFIED VISUAL DISTURBANCE 12/04/2013 KARIE 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, FREDO R 786.59 OTHER CHEST PAIN 12/04/2013 DURAN DO, ISAAC K 054.9 HERPES SIMPLEX WITHOUT COMPLICATION 12/04/2013 DURAN DO, ISAAC K 368.9 UNSPECIFIED VISUAL DISTURBANCE 12/04/2013 DURAN DO, ISAAC K 786.59 OTHER CHEST PAIN 12/04/2013 KARIE 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, FREDO R 054.9 HERPES SIMPLEX WITHOUT COMPLICATION 12/04/2013 KARIE 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, FREDO R 368.9 UNSPECIFIED VISUAL DISTURBANCE 12/04/2013 KARIE 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, FREDO R 786.59 OTHER CHEST PAIN 12/04/2013 DURAN DO, ISAAC K 054.9 HERPES SIMPLEX WITHOUT COMPLICATION 12/04/2013 DURAN DO, ISAAC K 368.9 UNSPECIFIED VISUAL DISTURBANCE 12/04/2013 DURAN DO, ISAAC K 786.59 OTHER CHEST PAIN 12/04/2013 DURAN DO, ISAAC K 054.9 HERPES SIMPLEX WITHOUT COMPLICATION 12/04/2013 DURAN DO, ISAAC K 368.9 UNSPECIFIED VISUAL DISTURBANCE 12/04/2013 DURAN DO, ISAAC K 786.59 OTHER CHEST PAIN 12/04/2013 [facility], GUALBERTO R 054.9 HERPES SIMPLEX WITHOUT COMPLICATION 12/04/2013 [facility], GUALBERTO R 368.9 UNSPECIFIED VISUAL DISTURBANCE 12/04/2013 [facility], GUALBERTO R 786.59 OTHER CHEST PAIN 12/04/2013 [facility], GUALBERTO R 054.9 HERPES SIMPLEX WITHOUT COMPLICATION 12/04/2013 [facility], GUALBERTO R 368.9 UNSPECIFIED VISUAL DISTURBANCE 12/04/2013 [facility], GUALBERTO R 786.59 OTHER CHEST PAIN 12/04/2013 DURAN DO, ISAAC K 054.9 HERPES SIMPLEX WITHOUT COMPLICATION 12/04/2013 DURAN DO, ISAAC K 368.9 UNSPECIFIED VISUAL DISTURBANCE 12/04/2013 DURAN DO, ISAAC K 786.59 OTHER CHEST PAIN 12/04/2013 DURAN DO, ISAAC K 054.9 HERPES SIMPLEX WITHOUT COMPLICATION 12/04/2013 DURAN DO, ISAAC K 368.9 UNSPECIFIED VISUAL DISTURBANCE 12/04/2013 DURAN DO, ISAAC K 786.59 OTHER CHEST PAIN 12/04/2013 DURAN DO, ISAAC K 054.9 HERPES SIMPLEX WITHOUT COMPLICATION 12/04/2013 DURAN DO, ISAAC K 368.9 UNSPECIFIED VISUAL DISTURBANCE 12/04/2013 DURAN DO, ISAAC K 786.59 OTHER CHEST PAIN 12/04/2013 SHREE 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, IRIS A 054.9 HERPES SIMPLEX WITHOUT COMPLICATION 12/04/2013 SHREE 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, IRIS A 368.9 UNSPECIFIED VISUAL DISTURBANCE 12/04/2013 SHREE 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, IRIS A 786.59 OTHER CHEST PAIN 12/04/2013 UNA SWEET MD 054.9 HERPES SIMPLEX WITHOUT COMPLICATION 12/04/2013 UNA SWEET MD 368.9 UNSPECIFIED VISUAL DISTURBANCE 12/04/2013 UNA SWEET MD 786.59 OTHER CHEST PAIN 12/05/2013 DURAN DO, ISAAC K 348.2 BENIGN INTRACRANIAL HYPERTENSION 12/05/2013 [facility], GUALBERTO R 348.2 BENIGN INTRACRANIAL HYPERTENSION 12/05/2013 KARIE HICKS, FREDO R 348.2 BENIGN INTRACRANIAL HYPERTENSION 12/05/2013 DURAN DO, ISAAC K 348.2 BENIGN INTRACRANIAL HYPERTENSION 12/05/2013 [facility], [place] R 348.2 BENIGN INTRACRANIAL HYPERTENSION 12/05/2013 KARIE 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, FREDO R 348.2 BENIGN INTRACRANIAL HYPERTENSION 12/05/2013 DURAN DO, ISAAC K 348.2 BENIGN INTRACRANIAL HYPERTENSION 12/05/2013 KARIE HICKS, FREDO R 348.2 BENIGN INTRACRANIAL HYPERTENSION 12/05/2013 DURAN DO, ISAAC K 348.2 BENIGN INTRACRANIAL HYPERTENSION 12/05/2013 DURAN DO, ISAAC K 348.2 BENIGN INTRACRANIAL HYPERTENSION 12/05/2013 [facility], GUALBERTO R 348.2 BENIGN INTRACRANIAL HYPERTENSION 12/05/2013 [facility], GUALBERTO R 348.2 BENIGN INTRACRANIAL HYPERTENSION 12/05/2013 DURAN DO, ISAAC K 348.2 BENIGN INTRACRANIAL HYPERTENSION 12/05/2013 DURAN DO, ISAAC K 348.2 BENIGN INTRACRANIAL HYPERTENSION 12/05/2013 DURAN DO, ISAAC K 348.2 BENIGN INTRACRANIAL HYPERTENSION 12/05/2013 SHREE HICKS, IRIS A 348.2 BENIGN INTRACRANIAL HYPERTENSION 12/05/2013 MICKI STERLING, UNA 348.2 BENIGN INTRACRANIAL HYPERTENSION 12/12/2013 [facility], GUALBERTO R V81.1 HYPERTENSION SCREENING 12/12/2013 KARIE HICKS FREDO R V81.1 HYPERTENSION SCREENING 12/12/2013 DURAN DO, ISAAC K V81.1 HYPERTENSION SCREENING 12/12/2013 [facility], GUALBERTO R V81.1 HYPERTENSION SCREENING 12/12/2013 KARIE HICKS FREDO R V81.1 HYPERTENSION SCREENING 12/12/2013 DURAN DO, ISAAC K V81.1 HYPERTENSION SCREENING 12/12/2013 KARIE HICKS FREDO R V81.1 HYPERTENSION SCREENING 12/12/2013 DURAN DO, ISAAC K V81.1 HYPERTENSION SCREENING 12/12/2013 DURAN DO, ISAAC K V81.1 HYPERTENSION SCREENING 12/12/2013 [facility], GUALBERTO R V81.1 HYPERTENSION SCREENING 12/12/2013 [facility], GUAL[place]ERT[place] R V81.1 HYPERTENSION SCREENING 12/12/2013 DURAN DO, ISAAC K V81.1 HYPERTENSION SCREENING 12/12/2013 DRUAN DO, ISAAC K V81.1 HYPERTENSION SCREENING 12/12/2013 DURAN DO, ISAAC K V81.1 HYPERTENSION SCREENING 12/12/2013 IRIS SWANN APRN V81.1 HYPERTENSION SCREENING 12/12/2013 UNA SWEET MD V81.1 HYPERTENSION SCREENING 12/16/2013 TERRELL HOLT 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 Ot 349.0 LUMBAR PUNCTURE REACTION 12/16/2013 TERRELL HOLT 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 Ot 784.0 HEADACHE 01/06/2014 DURAN DO, ISAAC K 787.01 NAUSEA WITH VOMITING 01/06/2014 DURAN DO, ISAAC K 995.27 OTHER DRUG ALLERGY 01/06/2014 [facility], GUALBERTO R 787.01 NAUSEA WITH VOMITING 01/06/2014 [facility], GUAL[place]ERT[place] R 995.27 OTHER DRUG ALLERGY 01/06/2014 KARIE HICKS FREDO R 787.01 NAUSEA WITH VOMITING 01/06/2014 KARIE HICKS FREDO R 995.27 OTHER DRUG ALLERGY 01/06/2014 DURAN DO, ISAAC K 787.01 NAUSEA WITH VOMITING 01/06/2014 DURAN DO, ISAAC K 995.27 OTHER DRUG ALLERGY 01/06/2014 KARIE HICKS, FREDO R 787.01 NAUSEA WITH VOMITING 01/06/2014 KARIE MARQUEZN, FREDO R 995.27 OTHER DRUG ALLERGY 01/06/2014 DURAN DO, ISAAC K 787.01 NAUSEA WITH VOMITING 01/06/2014 DURAN DO, ISAAC K 995.27 OTHER DRUG ALLERGY 01/06/2014 DURAN DO, ISAAC K 787.01 NAUSEA WITH VOMITING 01/06/2014 DURAN DO, ISAAC K 995.27 OTHER DRUG ALLERGY 01/06/2014 [facility], GUAL[place]ERTO R 787.01 NAUSEA WITH VOMITING 01/06/2014 [facility], GUAL[place]ERTO R 995.27 OTHER DRUG ALLERGY 01/06/2014 [facility], GUAL[place]ERT[place] R 787.01 NAUSEA WITH VOMITING 01/06/2014 [facility], GUAL[place]ERTO R 995.27 OTHER DRUG ALLERGY 01/06/2014 DURAN DO, ISAAC K 787.01 NAUSEA WITH VOMITING 01/06/2014 DURAN DO, ISAAC K 995.27 OTHER DRUG ALLERGY 01/06/2014 DURAN DO, ISAAC K 787.01 NAUSEA WITH VOMITING 01/06/2014 DURAN DO, ISAAC K 995.27 OTHER DRUG ALLERGY 01/06/2014 DURAN DO, ISAAC K 787.01 NAUSEA WITH VOMITING 01/06/2014 DURAN DO, ISAAC K 995.27 OTHER DRUG ALLERGY 01/06/2014 MORAIMA SWANN APRNIDI A 787.01 NAUSEA WITH VOMITING 01/06/2014 MORAIMA SWANN APRNIDI A 995.27 OTHER DRUG ALLERGY 01/06/2014 UNA SWEET MD 787.01 NAUSEA WITH VOMITING 01/06/2014 UNA SWEET MD 995.27 OTHER DRUG ALLERGY 02/09/2014 DURAN DO, ISAAC K 796.2 ELEVATED BLOOD PRESSURE READING WITHOUT DIAGNOSIS OF HYPERTENSION 02/09/2014 LORRI TIWARI APRNINA R 796.2 ELEVATED BLOOD PRESSURE READING WITHOUT DIAGNOSIS OF HYPERTENSION 02/09/2014 DURAN DO, ISAAC K 796.2 ELEVATED BLOOD PRESSURE READING WITHOUT DIAGNOSIS OF HYPERTENSION 02/09/2014 DURAN DO, ISAAC K 796.2 ELEVATED BLOOD PRESSURE READING WITHOUT DIAGNOSIS OF HYPERTENSION 02/09/2014 [facility], GUAL[place]ERT[place] R 796.2 ELEVATED BLOOD PRESSURE READING WITHOUT DIAGNOSIS OF HYPERTENSION 02/09/2014 [facility], GUAL[place]ERT[place] R 796.2 ELEVATED BLOOD PRESSURE READING WITHOUT DIAGNOSIS OF HYPERTENSION 02/09/2014 DURAN DO, ISAAC K 796.2 ELEVATED BLOOD PRESSURE READING WITHOUT DIAGNOSIS OF HYPERTENSION 02/09/2014 DURAN DO, ISAAC K 796.2 ELEVATED BLOOD PRESSURE READING WITHOUT DIAGNOSIS OF HYPERTENSION 02/09/2014 DURAN DO, ISAAC K 796.2 ELEVATED BLOOD PRESSURE READING WITHOUT DIAGNOSIS OF HYPERTENSION 02/09/2014 IRIS SWANN APRN A 796.2 ELEVATED BLOOD PRESSURE READING WITHOUT DIAGNOSIS OF HYPERTENSION 02/09/2014 UNA SWEET MD 796.2 ELEVATED BLOOD PRESSURE READING WITHOUT DIAGNOSIS OF HYPERTENSION 02/11/2014 DURAN DO, ISAAC K 787.02 NAUSEA ALONE 02/11/2014 LORRI TIWARI APRNINA R 787.02 NAUSEA ALONE 02/11/2014 DURAN DO, ISAAC K 787.02 NAUSEA ALONE 02/11/2014 DURAN DO, ISAAC K 787.02 NAUSEA ALONE 02/11/2014 [facility], G[place]ERT[place] R 787.02 NAUSEA ALONE 02/11/2014 [facility], [place] R 787.02 NAUSEA ALONE 02/11/2014 DURAN DO, ISAAC K 787.02 NAUSEA ALONE 02/11/2014 DURAN DO, ISAAC K 787.02 NAUSEA ALONE 02/11/2014 DURAN DO, ISAAC K 787.02 NAUSEA ALONE 02/11/2014 IRIS SWANN APRN A 787.02 NAUSEA ALONE 02/11/2014 UNA SWEET MD 787.02 NAUSEA ALONE 03/03/2014 FREDO TIWARI APRN R 278.02 OVERWEIGHT 03/03/2014 DURAN DO, ISAAC K 278.02 OVERWEIGHT 03/03/2014 DURAN DO, ISAAC K 278.02 OVERWEIGHT 03/03/2014 [facility], [place] R 278.02 OVERWEIGHT 03/03/2014 [facility], [place] R 278.02 OVERWEIGHT 03/03/2014 DURAN DO, ISAAC K 278.02 OVERWEIGHT 03/03/2014 DURAN DO, ISAAC K 278.02 OVERWEIGHT 03/03/2014 DURAN DO, ISAAC K 278.02 OVERWEIGHT 03/03/2014 IRIS SWANN APRN A 278.02 OVERWEIGHT 03/03/2014 UNA SWEET MD 278.02 OVERWEIGHT 06/06/2014 DURAN DO, ISAAC K 466.0 BRONCHITIS, ACUTE 06/06/2014 DURAN DO, ISAAC K 466.0 BRONCHITIS, ACUTE 06/06/2014 DURAN DO, ISAAC K 466.0 BRONCHITIS, ACUTE 06/06/2014 IRIS SWANN APRN A 466.0 BRONCHITIS, ACUTE 06/06/2014 UNA SWEET MD 466.0 BRONCHITIS, ACUTE 06/08/2014 BRYON HOWE MD Ot 784.0 06/24/2014 DURAN DO ISAAC K 780.79 OTHER MALAISE AND FATIGUE 06/24/2014 ROGER FORD ISAAC K 780.79 OTHER MALAISE AND FATIGUE 06/24/2014 IRIS SWANN APRN A 780.79 OTHER MALAISE AND FATIGUE 06/24/2014 UNA SWEET MD 780.79 OTHER MALAISE AND FATIGUE 07/15/2014 LAURA DURAN DOA K 401.1 HYPERTENSION, BENIGN ESSENTIAL 07/15/2014 IRIS SWANN APRN 401.1 HYPERTENSION, BENIGN ESSENTIAL 07/15/2014 UNA SWEET MD 401.1 HYPERTENSION, BENIGN ESSENTIAL 07/21/2014 IRIS SWANN APRN V25.43 IMPLANON REMOVAL 07/21/2014 UNA SWEET MD V25.43 IMPLANON REMOVAL 09/10/2014 MICKI STERLING, UNA 465.9 ACUTE UPPER RESPIRATORY INFECTIONS OF UNSPECIFIED SITE 01/12/2016 FREDO TIWARI 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 Ot 722.4 CERVICAL DISC DEGEN 01/12/2016 FREDO TIWARI APRN Ot 722.52 LUMB/LUMBOSAC DISC DEGEN 01/12/2016 GAY HUITRON MD Ot 346.90 MIGRAINE UNSPECIFIED W/O INTRACT MGRN W/ 01/12/2016 GAY HUITRON MD Ot 722.4 CERVICAL DISC DEGEN 01/12/2016 GAY HUITRON MD Ot 722.52 LUMB/LUMBOSAC DISC DEGEN 01/12/2016 GAY HUITRON MD Ot 723.8 CERVICAL SYNDROME NEC 01/12/2016 GAY HUITRON MD Ot 729.1 MYALGIA AND MYOSITIS NOS 01/12/2016 GAY HUITRON MD Ot V58.69 OTH MED,LT,CURRENT USE 01/12/2016 GAY HUITRON MD Ot 278.00 OBESITY, NOS 01/12/2016 GAY HUITRON MD Ot 722.4 CERVICAL DISC DEGEN 01/12/2016 GAY HUITRON MD, Ot 722.52 LUMB/LUMBOSAC DISC DEGEN 01/12/2016 GAY HUITRON MD Ot 723.8 CERVICAL SYNDROME NEC 01/12/2016 GAY HUITRON MD, Ot 729.1 MYALGIA AND MYOSITIS NOS 01/12/2016 GAY HUITRON MD, Ot V58.69 OTH MED,LT,CURRENT USE 01/12/2016 GAY HUITRON MD Ot V85.36 BODY MASS INDEX 36.0-36.9, ADULT 01/12/2016 JADIEL RIDDLE OD Ot 377.00 PAPILLEDEMA NOS 01/12/2016 CARLEY STERLING, BRYON K Ot 784.0 HEADACHE 01/12/2016 FREDO TIWARI APRN Ot 780.79 OTH MALAISE FATIGUE 01/12/2016 FREDO TIWARI APRN Ot 787.91 DIARRHEA 01/13/2016 COS DOADRIAN L Ot R10.11 RIGHT UPPER QUADRANT PAIN 01/25/2016 COS DOSHANNANNT L Ot R10.11 RIGHT UPPER QUADRANT PAIN 01/28/2016 SMITH, NEREYDA A TIE CARRIER Ot R10.11 RIGHT UPPER QUADRANT PAIN 02/02/2016 NEREYDA SMITH TIE CARRIER Ot R10.11 RIGHT UPPER QUADRANT PAIN 02/10/2016 DAVEY DO, AMADOR D Ot R10.13 EPIGASTRIC PAIN 02/10/2016 DAVEY DO, AMADOR D Ot Z01.818 ENCOUNTER FOR OTHER PREPROCEDURAL EXAMIN 02/10/2016 NEREYDA SMITH TIE CARRIER Ot R10.11 RIGHT UPPER QUADRANT PAIN 02/11/2016 DAVEY DO, AMADOR D Ot R10.13 EPIGASTRIC PAIN 02/11/2016 DAVEY DO, AMADOR D Ot Z01.818 ENCOUNTER FOR OTHER PREPROCEDURAL EXAMIN 02/11/2016 DAVEY DO, AMADOR D Ot R10.13 EPIGASTRIC PAIN 02/11/2016 DAVEY DO, AMADOR D Ot Z01.818 ENCOUNTER FOR OTHER PREPROCEDURAL EXAMIN 02/18/2016 DAVEY DO, AMADOR D Ot K25.9 GASTRIC ULCER, UNSP ACUTE OR CHRONIC, 02/18/2016 DAVEY DO, AMADOR D Ot K29.70 GASTRITIS, UNSPECIFIED, WITHOUT BLEEDING 02/18/2016 DAVEY DO, AMADOR D Ot K44.9 DIAPHRAGMATIC HERNIA WITHOUT OBSTRUCTION 02/22/2016 DAVEY DO, AMADOR D Ot K25.9 GASTRIC ULCER, UNSP ACUTE OR CHRONIC, 02/22/2016 DAVEY DO, AMADOR D Ot K29.70 GASTRITIS, UNSPECIFIED, WITHOUT BLEEDING 02/22/2016 DAVEY DO, AMADOR D Ot K44.9 DIAPHRAGMATIC HERNIA WITHOUT OBSTRUCTION 09/20/2016 ADRIAN SERNA DO Ot R10.11 RIGHT UPPER QUADRANT PAIN 09/20/2016 NEREYDA SMITH TIE CARRIER Ot R10.11 RIGHT UPPER QUADRANT PAIN 10/02/2016 UBALDO BATES 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 Ot N83.202 UNSPECIFIED OVARIAN CYST, LEFT SIDE 10/02/2016 UBALDO BATES 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 Ot N89.8 OTHER SPECIFIED NONINFLAMMATORY DISORDER 10/02/2016 UBALDO BATES APRN Ot R10.2 PELVIC AND PERINEAL PAIN 10/06/2016 SHWETHA STERLING, KELLEE Jaime Ot D64.9 ANEMIA, UNSPECIFIED 10/06/2016 SHWETHA STERLING, KELLEE Jaime Ot R10.2 PELVIC AND PERINEAL PAIN 10/06/2016 KELLEE TADEO MD, Ot Z01.812 ENCOUNTER FOR PREPROCEDURAL LABORATORY E 10/06/2016 KELLEE TADEO MD Ot Z11.2 ENCOUNTER FOR SCREENING FOR OTHER BACTER 10/13/2016 SHANNAN SERNA DONT L Ot R10.11 RIGHT UPPER QUADRANT PAIN 10/13/2016 NEREYDA SMITH TIE CARRIER Ot R10.11 RIGHT UPPER QUADRANT PAIN 10/13/2016 UBALDO BATES APRN Ot N83.202 UNSPECIFIED OVARIAN CYST, LEFT SIDE 10/13/2016 UBALDO BATES APRN Ot N89.8 OTHER SPECIFIED NONINFLAMMATORY DISORDER 10/13/2016 UBALDO BATES APRN Ot R10.2 PELVIC AND PERINEAL PAIN 10/13/2016 KELLEE TADEO MD Ot N80.1 ENDOMETRIOSIS OF OVARY 10/13/2016 KELLEE TADEO MD Ot N83.8 OTH NONINFLAMMATORY DISORD OF OVARY, FAL 10/17/2016 KELLEE TADEO MD Ot N80.1 ENDOMETRIOSIS OF OVARY 10/17/2016 KELLEE TADEO MD Ot N83.8 OTH NONINFLAMMATORY DISORD OF OVARY, FAL 10/19/2016 KELLEE TADEO MD Ot N80.1 ENDOMETRIOSIS OF OVARY 10/19/2016 KELLEE TADEO MD Ot N83.8 OTH NONINFLAMMATORY DISORD OF OVARY, FAL 06/08/2017 DAPHNE FORD ADRIAN L Ot R10.11 RIGHT UPPER QUADRANT PAIN 06/08/2017 NEREYDA SMITH TIE CARRIER Ot R10.11 RIGHT UPPER QUADRANT PAIN 06/08/2017 UBALDO BATES 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 Ot N83.202 UNSPECIFIED OVARIAN CYST, LEFT SIDE 06/08/2017 UBALDO BATES 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 Ot N89.8 OTHER SPECIFIED NONINFLAMMATORY DISORDER 06/08/2017 UBALDO BATES 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 Ot R10.2 PELVIC AND PERINEAL PAIN 06/08/2017 ROCAEL STERLING, YAJAIRA Carrillo Ot O20.0 THREATENED 06/08/2017 ROCAEL STERLING, YAJAIRA T Ot O20.9 HEMORRHAGE IN EARLY , UNSPECIFI 06/08/2017 YAJAIRA COTE MD Ot O99.351 DISEASES OF THE NERVOUS SYS COMP PREGNAN 06/08/2017 YAJAIRA COTE MD Ot Z3A.09 9 WEEKS GESTATION OF 06/08/2017 YAJAIRA COTE MD Ot Z87.891 PERSONAL HISTORY OF NICOTINE DEPENDENCE 06/08/2017 YAJAIRA COTE MD Ot Z90.49 ACQUIRED ABSENCE OF OTHER SPECIFIED PART 06/08/2017 YAJAIRA COTE MD Ot Z90.89 ACQUIRED ABSENCE OF OTHER ORGANS 06/11/2017 YAJAIRA COTE MD Ot O20.0 THREATENED 06/11/2017 YAJAIRA COTE MD Ot O20.9 HEMORRHAGE IN EARLY , UNSPECIFI 06/11/2017 YAJAIRA COTE MD Ot O99.351 DISEASES OF THE NERVOUS SYS COMP PREGNAN 06/11/2017 YAJAIRA COTE MD Ot Z3A.09 9 WEEKS GESTATION OF 06/11/2017 YAJAIRA COTE MD Ot Z87.891 PERSONAL HISTORY OF NICOTINE DEPENDENCE 06/11/2017 YAJAIRA COTE MD Ot Z90.49 ACQUIRED ABSENCE OF OTHER SPECIFIED PART 06/11/2017 YAJAIRA COTE MD Ot Z90.89 ACQUIRED ABSENCE OF OTHER ORGANS 12/29/2017 KELLEE TADEO MD, Ot G93.2 BENIGN INTRACRANIAL HYPERTENSION 12/29/2017 KELLEE TADEO MD, Ot O32.4XX0 MATERNAL CARE FOR HIGH HEAD AT TERM, NOT 12/29/2017 KELLEE TADEO MD, Ot O41.03X0 OLIGOHYDRAMNIOS, THIRD TRIMESTER, NOT AP 12/29/2017 KELLEE TADEO MD, Ot 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 12/29/2017 KELLEE TADEO MD, Ot O99.353 DISEASES OF THE NERVOUS SYS COMP PREGNAN 12/29/2017 KELLEE TADEO MD, Ot Z37.0 SINGLE LIVE 12/29/2017 KELLEE TADEO MD, Ot Z3A.38 38 WEEKS GESTATION OF 04/07/2018 FREDO TIWARI 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 Ot 722.4 CERVICAL DISC DEGEN 04/07/2018 FREDO TIWARI 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 Ot 722.52 LUMB/LUMBOSAC DISC DEGEN 04/07/2018 GAY HUITRON MD Ot 346.90 MIGRAINE UNSPECIFIED W/O INTRACT MGRN W/ 04/07/2018 GAY HUITRON MD Ot 722.4 CERVICAL DISC DEGEN 04/07/2018 GAY HUITRON MD Ot 722.52 LUMB/LUMBOSAC DISC DEGEN 04/07/2018 GAY HUITRON MD Ot 723.8 CERVICAL SYNDROME NEC 04/07/2018 GAY HUITRON MD Ot 729.1 MYALGIA AND MYOSITIS NOS 04/07/2018 GAY HUITRON MD, Ot V58.69 OTH MED,LT,CURRENT USE 04/07/2018 GAY HUITRON MD Ot 278.00 OBESITY, NOS 04/07/2018 GAY HUITRON MD Ot 722.4 CERVICAL DISC DEGEN 04/07/2018 GAY HUITRON MD, Ot 722.52 LUMB/LUMBOSAC DISC DEGEN 04/07/2018 GAY HUITRON MD Ot 723.8 CERVICAL SYNDROME NEC 04/07/2018 GAY HUITRON MD Ot 729.1 MYALGIA AND MYOSITIS NOS 04/07/2018 GAY HUITRON MD, Ot V58.69 OTH MED,LT,CURRENT USE 04/07/2018 GAY HUITRON MD Ot V85.36 BODY MASS INDEX 36.0-36.9, ADULT 04/07/2018 JADIEL RIDDLE OD Ot 377.00 PAPILLEDEMA NOS 04/07/2018 CARLEY STERLING, BRYON K Ot 784.0 HEADACHE 04/07/2018 FREDO TIWARI 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 Ot 780.79 OTH MALAISE FATIGUE 04/07/2018 FREDO TIWARI 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 Ot 787.91 DIARRHEA 04/11/2018 FREDO TIWARI 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 Ot 722.4 CERVICAL DISC DEGEN 04/11/2018 FREDO TIWARI 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 Ot 722.52 LUMB/LUMBOSAC DISC DEGEN 04/11/2018 GAY HUITRON MD Ot 346.90 MIGRAINE UNSPECIFIED W/O INTRACT MGRN W/ 04/11/2018 GAY HUITRON MD Ot 722.4 CERVICAL DISC DEGEN 04/11/2018 GAY HUITRON MD Ot 722.52 LUMB/LUMBOSAC DISC DEGEN 04/11/2018 GAY HUITRON MD Ot 723.8 CERVICAL SYNDROME NEC 04/11/2018 GAY HUITRON MD Ot 729.1 MYALGIA AND MYOSITIS NOS 04/11/2018 GAY HUITRON MD, Ot V58.69 OTH MED,LT,CURRENT USE 04/11/2018 GAY HUITRON MD Ot 278.00 OBESITY, NOS 04/11/2018 GAY HUITRON MD, Ot 722.4 CERVICAL DISC DEGEN 04/11/2018 GAY HUITRON MD, Ot 722.52 LUMB/LUMBOSAC DISC DEGEN 04/11/2018 GAY HUITRON MD, Ot 723.8 CERVICAL SYNDROME NEC 04/11/2018 GAY HUITRON MD, Ot 729.1 MYALGIA AND MYOSITIS NOS 04/11/2018 GAY HUITRON MD, Ot V58.69 OTH MED,LT,CURRENT USE 04/11/2018 GAY HUITRON MD Ot V85.36 BODY MASS INDEX 36.0-36.9, ADULT 04/11/2018 JADIEL RIDDLE OD Ot 377.00 PAPILLEDEMA NOS 04/11/2018 CARLEY STERLING, BRYON K Ot 784.0 HEADACHE 04/11/2018 FREDO TIWARI 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 Ot 780.79 OTH MALAISE FATIGUE 04/11/2018 FREDO TIWARI 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 Ot 787.91 DIARRHEA 07/01/2018 ALEXANDRA DUFFY MD Ot M54.2 CERVICALGIA 07/01/2018 ALEXANDRA DUFFY MD Ot M54.5 LOW BACK PAIN 07/01/2018 ALEXANDRA DUFFY MD Ot M54.6 PAIN IN THORACIC SPINE 07/10/2018 ALEXANDRA DUFFY MD, Ot M54.2 CERVICALGIA 07/10/2018 ALEXANDRA DUFFY MD Ot M54.5 LOW BACK PAIN 07/10/2018 ALEXANDRA DUFFY MD, Ot M54.6 PAIN IN THORACIC SPINE 09/03/2018 MERCEDES STERLING, KRISTINE Randle Ot Z01.818 ENCOUNTER FOR OTHER PREPROCEDURAL EXAMIN 09/04/2018 TATI MD, ALEXANDRA C Ot M54.2 CERVICALGIA 09/04/2018 ALEXANDRA DUFFY MD Ot M54.5 LOW BACK PAIN 09/04/2018 ALEXANDRA DUFFY MD Ot M54.6 PAIN IN THORACIC SPINE 09/04/2018 MERCEDES STERLING, KRISTINE Randle Ot Z01.818 ENCOUNTER FOR OTHER PREPROCEDURAL EXAMIN Procedures Code Description [place] [address] URINE DRUG SCREEN (IN-HOUSE ) 03/13/2013 60733 ROUTINE VENIPUNCTURE 04/02/2013 61388 CBC 04/02/2013 33042 CMP 04/02/2013 11718 LIPID PANEL 04/02/2013 9196713 GFR CALC (RESULT ONLY) 04/02/2013 35205 TSH 04/02/2013 68092 PSYCH DIAGNOSTIC EVALUATION 07/04/2013 95914 PSYCH DIAGNOSTIC EVALUATION 07/17/2013 38037 PSYCHO TESTING 1 HR W TECH 07/17/2013 02811 TEST, URINE (IN- HOUSE) 07/24/2013 08876 PSYCHO TESTING 1 HR W/DR 07/28/2013 01313 PSYTX PT&/FAMILY 30 MINUTES 08/06/2013 02619 PSYTX PT&/FAMILY 45 MINUTES 09/19/2013 15274 PSYTX PT&/FAMILY 45 MINUTES 10/08/2013 21293 XRAY THORACIC SPINE 2 VIEWS 10/27/2013 11374 PSYTX PT&/FAMILY 45 MINUTES 12/03/2013 39884 TB TEST INTRADERMAL 12/03/2013 98275 ROUTINE VENIPUNCTURE 12/08/2013 46737 CBC 12/08/2013 51615 T4 FREE 12/08/2013 82397 TSH 12/08/2013 54181 T3 TOTAL 12/08/2013 BLOOD PRESSURE CHECK 12/12/2013 23663 LUMBAR PUNCTURE 12/12/2013 00466 PSYTX PT&/FAMILY 45 MINUTES 12/12/2013 27650 LUMBAR PUNCTURE 12/18/2013 BLOOD PRESSURE CHECK 01/09/2014 42651 PSYTX PT&/FAMILY 45 MINUTES 01/16/2014 80516 ROUTINE VENIPUNCTURE 01/21/2014 82697 CBC 01/21/2014 [id number] GFR CALC (RESULT ONLY) 01/21/2014 71124 CMP 01/21/2014 BLOOD PRESSURE CHECK 01/21/2014 Neurology Bryon Howe 01/27/2014 BLOOD PRESSURE CHECK 03/20/2014 44859 PSYTX PT&/FAMILY 45 MINUTES 04/22/2014 63755 PSYTX PT&/FAMILY 45 MINUTES 05/19/2014 99050 INFLUENZA A & B (IN-HOUSE) 06/24/2014 78282 CMP 06/26/2014 34025 CBC 06/26/2014 2000F BLOOD PRESSURE CHECK 07/15/2014 05478 IMPLANON REMOVAL 07/21/2014 [id number] INTRODUCTION OF OTH HORMONE INTO PERIPH 12/26/2017 [id number] EXTRACTION OF POC, LOW CERVICAL, OPEN AP 12/27/2017 Results Test Result Range Urine beta human chorionic gonadotropin (hCG) measurement - 02/18/16 06:40 Urine beta human chorionic gonadotropin (hCG) measurement NEGATIVE NEGATIVE Complete blood count (CBC) with automated white blood cell (WBC) differential - 10/06/16 14:30 Blood leukocytes automated count (number/volume) 9.0 10*3/uL 4.3-11.0 Blood erythrocytes automated count (number/volume) 4.52 10*6/uL 4.35-5.85 Venous blood hemoglobin measurement (mass/volume) 13.1 g/dL 11.5-16.0 Blood hematocrit (volume fraction) 40 % 35-52 Automated erythrocyte mean corpuscular volume 88 [foz_us] 80-99 Automated erythrocyte mean corpuscular hemoglobin (mass per erythrocyte) 29 pg 25-34 Automated erythrocyte mean corpuscular hemoglobin concentration measurement ( mass/volume) 33 g/dL 32-36 Automated erythrocyte distribution width ratio 13.0 % 10.0-14.5 Automated blood platelet count (count/volume) 364 10*3/uL 130-400 Automated blood platelet mean volume measurement 10.1 [foz_us] 7.4-10.4 Automated blood neutrophils/100 leukocytes 59 % 42-75 Automated blood lymphocytes/100 leukocytes 32 % 12-44 Blood monocytes/100 leukocytes 7 % 0-12 Automated blood eosinophils/100 leukocytes 2 % 0-10 Automated blood basophils/100 leukocytes 0 % 0-10 Blood neutrophils automated count (number/volume) 5.3 10*3 1.8-7.8 Blood lymphocytes automated count (number/volume) 2.9 10*3 1.0-4.0 Blood monocytes automated count (number/volume) 0.6 10*3 0.0-1.0 Automated eosinophil count 0.2 10*3/uL 0.0-0.3 Automated blood basophil count (count/volume) 0.0 10*3/uL 0.0-0.1 Methicillin resistant Staphylococcus aureus (MRSA) screening culture - 14:30 Methicillin resistant Staphylococcus aureus (MRSA) screening culture NEG NRG Urine beta human chorionic gonadotropin (hCG) measurement - 10/13/16 10:25 Urine beta human chorionic gonadotropin (hCG) measurement NEGATIVE NEGATIVE Complete blood count (CBC) with automated white blood cell (WBC) differential - 06/08/17 02:50 Blood leukocytes automated count (number/volume) 12.8 10*3/uL 4.3-11.0 Blood erythrocytes automated count (number/volume) 4.59 10*6/uL 4.35-5.85 Venous blood hemoglobin measurement (mass/volume) 13.8 g/dL 11.5-16.0 Blood hematocrit (volume fraction) 41 % 35-52 Automated erythrocyte mean corpuscular volume 89 [foz_us] 80-99 Automated erythrocyte mean corpuscular hemoglobin (mass per erythrocyte) 30 pg 25-34 Automated erythrocyte mean corpuscular hemoglobin concentration measurement ( mass/volume) 34 g/dL 32-36 Automated erythrocyte distribution width ratio 13.2 % 10.0-14.5 Automated blood platelet count (count/volume) 342 10*3/uL 130-400 Automated blood platelet mean volume measurement 9.9 [foz_us] 7.4-10.4 Automated blood neutrophils/100 leukocytes 66 % 42-75 Automated blood lymphocytes/100 leukocytes 27 % 12-44 Blood monocytes/100 leukocytes 6 % 0-12 Automated blood eosinophils/100 leukocytes 2 % 0-10 Automated blood basophils/100 leukocytes 0 % 0-10 Blood neutrophils automated count (number/volume) 8.4 10*3 1.8-7.8 Blood lymphocytes automated count (number/volume) 3.4 10*3 1.0-4.0 Blood monocytes automated count (number/volume) 0.7 10*3 0.0-1.0 Automated eosinophil count 0.2 10*3/uL 0.0-0.3 Automated blood basophil count (count/volume) 0.0 10*3/uL 0.0-0.1 ABO+Rh group - 06/08/17 02:50 ABO+Rh group OP NRG Transfusion band number [id number] NRG Serum or plasma choriogonadotropin measurement (units/volume) - 06/08/17 02:50 Serum or plasma choriogonadotropin measurement (units/volume) [id number] m[iU]/mL <5 Complete urinalysis with reflex to culture - 06/08/17 03:10 Urine color determination YELLOW NRG Urine clarity determination SLIGHTLY CLOUDY NRG Urine pH measurement by test strip 6 5-9 Specific gravity of urine by test strip 1.020 1.016- 1.022 Urine protein assay by test strip, semi-quantitative 1+ NEGATIVE Urine glucose detection by automated test strip NEGATIVE NEGATIVE Erythrocytes detection in urine sediment by light microscopy 5+ NEGATIVE Urine ketones detection by automated test strip NEGATIVE NEGATIVE Urine nitrite detection by test strip NEGATIVE NEGATIVE Urine total bilirubin detection by test strip NEGATIVE NEGATIVE Urine urobilinogen measurement by automated test strip (mass/volume) NORMAL NORMAL Urine leukocyte esterase detection by dipstick NEGATIVE NEGATIVE Automated urine sediment erythrocyte count by microscopy (number/high power field) [HPF] NRG Automated urine sediment leukocyte count by microscopy (number/high power field ) RARE NRG Bacteria detection in urine sediment by light microscopy TRACE NRG Squamous epithelial cells detection in urine sediment by light microscopy 10-25 NRG Crystals detection in urine sediment by light microscopy NONE NRG Casts detection in urine sediment by light microscopy NONE NRG Mucus detection in urine sediment by light microscopy MODERATE NRG Complete urinalysis with reflex to culture NO NRG Complete blood count (CBC) with automated white blood cell (WBC) differential - 12/26/17 13:40 Blood leukocytes automated count (number/volume) 11.5 10*3/uL 4.3-11.0 Blood erythrocytes automated count (number/volume) 3.83 10*6/uL 4.35-5.85 Venous blood hemoglobin measurement (mass/volume) 10.0 g/dL 11.5-16.0 Blood hematocrit (volume fraction) 32 % 35-52 Automated erythrocyte mean corpuscular volume 83 [foz_us] 80-99 Automated erythrocyte mean corpuscular hemoglobin (mass per erythrocyte) 26 pg 25-34 Automated erythrocyte mean corpuscular hemoglobin concentration measurement ( mass/volume) 32 g/dL 32-36 Automated erythrocyte distribution width ratio 14.4 % 10.0-14.5 Automated blood platelet count (count/volume) 334 10*3/uL 130-400 Automated blood platelet mean volume measurement 10.0 [foz_us] 7.4-10.4 Automated blood neutrophils/100 leukocytes 75 % 42-75 Automated blood lymphocytes/100 leukocytes 17 % 12-44 Blood monocytes/100 leukocytes 7 % 0-12 Automated blood eosinophils/100 leukocytes 1 % 0-10 Automated blood basophils/100 leukocytes 0 % 0-10 Blood neutrophils automated count (number/volume) 8.7 10*3 1.8-7.8 Blood lymphocytes automated count (number/volume) 1.9 10*3 1.0-4.0 Blood monocytes automated count (number/volume) 0.8 10*3 0.0-1.0 Automated eosinophil count 0.1 10*3/uL 0.0-0.3 Automated blood basophil count (count/volume) 0.0 10*3/uL 0.0-0.1 Blood type T Indirect antibody screen panel - 12/26/17 13:40 ABO+Rh group OP NRG Transfusion band number [id number] NRG Blood group antibody screen NEGATIVE NRG Encounters ACCT No. Visit Date/Time Discharge Status Pt. Type Provider Facility Loc./Unit Complaint [id number] 09/10/2014 09:39:00 09/10/2014 23:59:59 [facility] Outpatient UNA SWEET MD [id number] 07/21/2014 17:18:00 07/21/2014 23:59:59 [facility] Out[facility] IRIS SWANN APRN [id number] 07/15/2014 17:15:00 07/15/2014 23:59:59 [facility] Outpatient ISAAC DURAN DO [id number] 06/24/2014 11:28:00 06/24/2014 23:59:59 [facility] Outpatient ISAAC DURAN DO [id number] 06/06/2014 10:18:00 06/06/2014 23:59:59 [facility] Outpatient ISAAC DURAN DO [id number] 05/19/2014 14:48:00 05/19/2014 23:59:59 [facility] [id number] 04/22/2014 09:59:00 04/22/2014 23:59:59 [facility] [id number] 04/06/2014 17:10:00 04/06/2014 23:59:59 [facility] Outpatient ISAAC DURAN DO [id number] 03/20/2014 13:59:00 03/20/2014 23:59:59 [facility] Outpatient ROGER DOISAAC [id number] 03/03/2014 15:33:00 03/03/2014 23:59:59 CLS Outpatient KARIE 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FREDO Clancy [id number] 02/09/2014 15:59:00 02/09/2014 23:59:59 CLS Outpatient DURAN DOISAAC [id number] 01/21/2014 15:43:00 01/21/2014 23:59:59 CLS Outpatient KARIE 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FREDO Clancy [id number] 01/16/2014 15:39:00 01/16/2014 23:59:59 CLS Outpatient NICOL LSC[facility], GUALBERTO Lombardo [id number] 01/09/2014 15:32:00 01/09/2014 23:59:59 CLS Outpatient DURAN DOISAAC Isabel [id number] 12/24/2013 16:00:00 12/24/2013 23:59:59 CLS Outpatient KARIE MARQEUZNFREDO [id number] 12/12/2013 16:01:00 12/12/2013 23:59:59 CLS Outpatient NICOL LSCS, GUALBERTO Lombardo [id number] 12/08/2013 09:34:00 12/08/2013 23:59:59 CLS Outpatient DURAN DOISAAC [id number] 12/03/2013 09:02:00 12/03/2013 23:59:59 CLS Outpatient NICOL LSCS, GUALBERTO Lombardo [id number] 10/24/2013 11:45:00 10/24/2013 23:59:59 CLS Outpatient DURAN DOISAAC Isabel [id number] 10/08/2013 09:41:00 10/08/2013 23:59:59 CLS Outpatient NICOL [facility]SC[facility], GUALBERTO Lombardo [id number] 09/19/2013 10:53:00 09/19/2013 23:59:59 CLS Outpatient NICOL LSC[facility], GUALBERTO Lombardo [id number] 09/09/2013 15:02:00 09/09/2013 23:59:59 CLS Outpatient KARIE 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FREDO [id number] 08/06/2013 09:32:00 08/06/2013 23:59:59 CLS Outpatient NICOL LSCS, GUALBERTO Lombardo [id number] 07/25/2013 12:56:00 07/25/2013 23:59:59 CLS Outpatient NICOL , TAMMY Camp [id number] 07/17/2013 17:03:00 07/17/2013 23:59:59 CLS Outpatient TAMMY CAMARENA PHD [id number] 07/16/2013 08:59:00 07/16/2013 23:59:59 CLS Outpatient TAMMY CAMARENA PHD [id number] 07/03/2013 12:58:00 07/03/2013 23:59:59 CLS Outpatient NICOL [facility], GUAL[facility]ERT[facility] Lombardo [id number] 05/28/2013 13:13:00 05/28/2013 23:59:59 CLS Outpatient WILIAN SHARMA MD [id number] 05/01/2013 11:23:00 05/01/2013 23:59:59 CLS Outpatient ISAAC DURAN DO [id number] 04/18/2013 16:20:00 04/18/2013 23:59:59 CLS Outpatient ISAAC DURAN DO [id number] 04/10/2013 11:00:00 04/10/2013 23:59:59 CLS Outpatient ISAAC DURAN DO [id number] 03/13/2013 14:16:00 Document Registration [id number] 09/03/2018 05:51:00 09/03/2018 12:16:00 DIS Outpatient MERCEDES STERLING, KRISTINE Randle [facility] PREOP VENTRAL HERNIA [id number] 06/28/2018 10:53:00 06/28/2018 23:59:59 CLS Outpatient ALEXANDRA DUFFY MD [facility] RAD NECK PAIN, UPPER BACK PAIN, LOW BACK PAIN [id number] 12/26/2017 12:55:00 12/29/2017 14:35:00 DIS Inpatient KELLEE TADEO MD [facility] LDRP LABOR [id number] 06/08/2017 02:29:00 06/08/2017 04:13:00 DIS Emergency ROCAEL STERLING, YAJAIRA Carrillo [facility] ER VAG BLEEDING,9 WKS PREG [id number] 10/13/2016 10:36:00 10/13/2016 17:35:00 DIS Outpatient KELLEE TADEO MD [facility] SDC CHRONIC PELVIC PAIN; LEFT ADNEXAL CYST [id number] 10/06/2016 14:13:00 10/06/2016 14:40:00 DIS Outpatient SHWETHA STERLING, KELLEE Jaime [facility] PREOP CHRONIC PELVIC PAIN; LEFT ADNEXAL CYST [id number] 09/20/2016 13:29:00 09/20/2016 23:59:59 CLS Outpatient JANA UBALDO Jer 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 [facility] RAD HX OF LEFT SIDE OVARIAN CYST [id number] 02/18/2016 06:25:00 02/18/2016 08:30:00 DIS Outpatient AMADOR DAVEY DO [facility] SDC UPPER GASTRIC PAIN [id number] 02/10/2016 05:34:00 02/10/2016 10:34:00 DIS Outpatient AMADOR DAVEY DO [facility] PREOP UPPER GASTRIC PAIN [id number] 01/27/2016 12:23:00 01/27/2016 23:59:59 CLS Outpatient NEREYDA SMITH TIE CARRIER [facility] CARD RUQ ABD PAIN [id number] 01/12/2016 06:58:00 01/12/2016 23:59:59 CLS Outpatient ADRIAN SERNA DO [facility] RAD RUQ ABD PAIN [id number] 06/24/2014 12:22:00 06/24/2014 23:59:59 CLS Outpatient FREDO TIWARI 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 [facility] LAB DIARRHEA [id number] 05/22/2014 07:52:00 05/22/2014 23:59:59 CLS Outpatient BRYON HOWE MD [facility] RAD HEADACHES [id number] 12/16/2013 16:41:00 12/16/2013 21:23:00 DIS Emergency TERRELL HOLT 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 [facility] ER HEADACHE, BACK PAIN [id number] 12/04/2013 19:29:00 12/04/2013 23:59:59 CLS Outpatient JADIEL RIDDLE OD [facility] RAD PAPILLEDEMA [id number] 10/13/2013 13:04:00 10/13/2013 23:59:59 CLS Outpatient GAY HUITRON MD [facility] CARD DDD-CERVICAL [id number] 07/18/2013 08:50:00 07/18/2013 09:51:00 DIS Outpatient GAY HUITRON MD [facility] CARD DDD CERVICAL [id number] 06/13/2013 10:38:00 06/13/2013 23:59:59 CLS Outpatient GAY HUITRON MD [facility] CARD CERVICAL DDD [id number] 04/08/2013 14:28:00 04/08/2013 23:59:59 CLS Outpatient FREDO TIWARI APRN [facility] RAD NECK PAIN,LOW BACK PAIN [id number] 09/20/2018 07:56:00 ACT Outpatient MERCEDES STERLING, KRISTINE Randle [facility] SDC VENTRAL HERNIA [id number] 07/11/2012 00:25:00 Document Registration [id number] 06/24/2014 12:23:25 ACT Document Registration
[2018-09-20 08:15] VITALS: BP 125/74
[2018-09-20] MEDS ORDERED: PREGABALIN 75 MG (LYRICA) CAP PO ONE ×2 (08:15→12:45)
[2018-09-20] MEDS ORDERED: CELECOXIB 100 MG (CeleBREX) CAP PO ONE ×2 (08:15→12:45)
[2018-09-20] MEDS ORDERED: ceFAZolin 2 GM IV Premixed 50 ML IV ONE (08:15)
[2018-09-20] MEDS ORDERED: oxyCODONE ER 10 MG (OxyCONTIN CR) TAB PO ONE ×2 (08:15→12:45)
[2018-09-20] MEDS ORDERED: ACETAMINOPHEN 500 MG TAB (TYLENOL) PO ONE ×2 (08:15→12:45)
--- NOTE | 2018-09-20 08:22 | Progress Note-Pre Operative ---
Pre-Operative Progress Note H&P Reviewed The H&P was reviewed, patient examined and no changes noted. Date Seen by Provider: Aug 29, 2018 Time Seen by Provider: 11:40 Date H&P Reviewed: Sep 20, 2018 Time H&P Reviewed: 08:22 Pre-Operative Diagnosis: Ventral hernia KRISTINE LONG MD Sep 20, 2018 08:22
[2018-09-20] MEDS: LACTATED RINGERS 1,000 ML IV PRN ×2 (08:50→11:58)
[2018-09-20 08:59] LABS: BASOPHILS # (AUTO) 0.1 10^3/uL (0.0-0.1); BASOPHILS % (AUTO) 1 % (0-10); EOSINOPHILS # (AUTO) 0.3 10^3/uL (0.0-0.3); EOSINOPHILS % (AUTO) 3 % (0-10); HEMATOCRIT 40 % (35-52); HEMOGLOBIN 13.1 G/DL (11.5-16.0); LYMPHOCYTES # (AUTO) 2.1 X 10^3 (1.0-4.0); LYMPHOCYTES % (AUTO) 28 % (12-44); MEAN CORPUSCULAR HEMOGLOBIN 27 PG (25-34); MEAN CORPUSCULAR HGB CONC 33 G/DL (32-36); MEAN CORPUSCULAR VOLUME 81 FL (80-99); MEAN PLATELET VOLUME 9.9 FL (7.4-10.4); MONOCYTES # (AUTO) 0.7 X 10^3 (0.0-1.0); MONOCYTES % (AUTO) 9 % (0-12); NEUTROPHILS # (AUTO) 4.6 X 10^3 (1.8-7.8); NEUTROPHILS % (AUTO) 60 % (42-75); PLATELET COUNT 379 10^3/uL (130-400); RED CELL DISTRIBUTION WIDTH 14.8 % (10.0-14.5); WHITE BLOOD COUNT 7.6 10^3/uL (4.3-11.0)
[2018-09-20] MEDS ORDERED: FAMOTIDINE 20MG/2ML IV (PEPCID) IV ONE (10:30)
[2018-09-20] MEDS ORDERED: BUP/EPI 0.5% 1:200,000 (SENSORCAINE) 30 ML VIAL ONE (10:52)
[2018-09-20] MEDS ORDERED: ONDANSETRON 4 MG/2 ML (SDV) Z0FRAN ONE ×2 (11:00→13:17)
[2018-09-20] MEDS ORDERED: NEOSTIGMINE 1 MG/ML 5 ML SYRINGE ONE (11:00)
[2018-09-20] MEDS ORDERED: DEXAMETHASONE 10 MG/ML (DECADRON) 1 ML VIAL ONE (11:00)
[2018-09-20] MEDS ORDERED: SEVOFLURANE (ULTANE) 15 ML INHAL SOLN ONE ×2 (11:00→12:38)
[2018-09-20] MEDS ORDERED: LIDOCAINE PF 2% 5 ML (XYLOCAINE) VIAL ONE (11:00)
[2018-09-20] MEDS ORDERED: MIDAZOLAM 2 MG/2 ML (VERSED) VIAL ONE (11:00)
[2018-09-20] MEDS ORDERED: proPOfol 200 MG/20 ML (DIPRIVAN) VIAL IV ONE (11:00)
[2018-09-20] MEDS ORDERED: fentaNYL INJECTION 100 MCG/2 ML AMP ONE ×2 (11:00→12:33)
[2018-09-20] MEDS ORDERED: ROCURONIUM 10 MG/ML 5 ML SYRINGE IV ONE (11:00)
[2018-09-20] MEDS ORDERED: GLYCOPYRROLATE 0.2 MG/ML (ROBINUL) 2 ML VIAL ONE (11:00)
--- NOTE | 2018-09-20 12:35 | Operative Report ---
Operative Report Date of Procedure/Surgery Sep 20, 2018 Surgeon (s) KRISTINE LONG MD Business Services Vice President (s): N/A Post-Operative Diagnosis Ventral hernia with a 2 cm defect, containing omentum Procedure Performed Robotic assisted repair of ventral hernia with mesh Description of Procedure Anesthesia Type: General Estimated blood loss (mL): Minimal Specimen(s) collected/removed None Description of the Procedure Indication for the procedure: This lady presented with a symptomatic ventral hernia around her umbilicus. She was offered repair using minimally invasive technique with robotic assistance and reinforcement with mesh. Informed consent was obtained after reviewing the operative details and complications of hematoma, infection of the mesh and a low incidence of recurrence. Description of the procedure: She was placed supine on the operating table and general anesthesia induced. 2 g of Ancef were administered intravenously as prophylaxis against wound infection. Sequential compression devices were placed around her legs, to minimize the risk of venous thrombosis. The right side of her body was tilted on a roll to facilitate triangulation of the robotic system. After adequate antiseptic preparation, pneumoperitoneum was established using a Veress needle introduced over the right subcostal margin , along the mid clavicular line. Intra-abdominal pressure was maintained at 15 mmHg, using carbon dioxide insufflation. A 12 mm trocar was placed and anatomy visualized using the high definition, 3-dimensional laparoscope, associated with da Inverted Edge system. Omentum was contained within the hernia. Under direct view, I placed another 12 mm trocar over the right side of the abdomen, overlying the midaxillary line, followed by an 8 mm trocar over the right lower quadrant. The robotic system was then docked in place. Omentum was taken down using hook cautery, revealing a fascial defect measuring about 2 cm in admitted. It was closed primarily using 0V LOC, nonabsorbable suture with the robotic assistance. Intra-abdominal pressure was reduced to 11 mmHg during this maneuver, to avoid tension on the suture line. The repair was then reinforced using a polypropylene mesh, measuring 11.5 cm in diameter, connected to a self retaining balloon system. The edges of the mesh were secured to the fascia using 20V LOC sutures with the robotic assistance. Hemostasis was satisfactory and the operation concluded. The incisions were closed using 4-0 Vicryl, in a subcuticular fashion. 0.5 percent Marcaine with epinephrine was infiltrated along the incisions, both preemptively and at the conclusion of the operation. She tolerated the procedure well, was extubated in the operating room and taken to the recovery room in a stable condition. Findings of the Procedure See operative report Allergies and Home Medications Allergies Coded Allergies: sumatriptan (Verified Allergy, Unknown, 12/16/13) Worsening headache sumatriptan succinate (Verified Allergy, Unknown, 12/16/13) Worsening headache ketorolac (Verified Adverse Reaction, Mild, made migraine worse, 12/27/17) Home Medications Tramadol HCl 50 Mg Tablet, 50 MG PO Q8H PRN for PAIN-MILD TO MODERATE, (Reported ) Patient Home Medication List Home Medication List Reviewed: Yes KRISTINE LONG MD Sep 20, 2018 12:35
[2018-09-20] MEDS ORDERED: ACHD5005 PO (12:38)
--- NOTE | 2018-09-20 12:39 | Discharge Inst-Simple/Standard ---
Discharge Inst-Standard Discharge Medications New, Converted or Re-Newed RX: RX on Chart Patient Instructions/Follow Up Plan of Care/Instructions/FU: Band-Aids off. Soft diet in the morning. Follow-up next , the . Activity as Tolerated: No Goal: No lifting over 20 lb Discharge Diet: No Restrictions KRISTINE LONG MD Sep 20, 2018 12:39
[2018-09-20] MEDS ORDERED: KETOROLAC 30 MG/ML VIAL IV SCH (12:45)
[2018-09-20] MEDS ORDERED: morphine INJ 10 MG/ML 1ML (SYR OR VIAL) IV PRN (12:45)
[2018-09-20] MEDS ORDERED: ONDANSETRON 4 MG/2 ML (SDV) Z0FRAN IVP PRN (13:00)
[2018-09-20] MEDS ORDERED: morphine INJ 10 MG/ML 1ML (SYR OR VIAL) IVP ONE (13:00)
[2018-09-20] MEDS ORDERED: HYDROmorphone 2 MG/ML VIAL (DILAUDID) IV ONE (13:00)
[2018-09-20] MEDS ORDERED: HYDROmorphone 2 MG/ML VIAL (DILAUDID) ONE (13:17)
[2018-09-20 14:23] VITALS: BP 149/71
[2018-09-20 15:22] VITALS: BP 112/54
[2018-09-20] MEDS: morphine INJ 10 MG/ML 1ML (SYR OR VIAL) IV PRN ×2 (16:57→21:25)
[2018-09-20 20:00] VITALS: BP 116/58
[2018-09-21 00:48] VITALS: BP 113/53
[2018-09-21 04:29] VITALS: BP 102/49
[2018-09-21 08:00] VITALS: BP 110/58
[2018-09-21] MEDS ORDERED: KETOROLAC 30 MG/ML VIAL IVP NR (10:15)
[2018-09-21] MEDS: morphine INJ 10 MG/ML 1ML (SYR OR VIAL) IV PRN (10:45)
[2018-09-21] MEDS ORDERED: HYDROcodone/APAP 5 MG/325 MG (LORTAB) TAB PO PRN ×2 (10:45→11:30)
--- NOTE | 2018-09-21 11:14 | Progress Note-Standard ---
Standard Progress Note Progress Notes/Assess & Plan Date Seen by a Provider: Sep 21, 2018 Time Seen by a Provider: 09:55 Progress/Assessment & Plan pain control reasonable. Incisions dry. Tolerating diet. Could be discharged home Final Diagnosis ventral hernia KRISTINE LONG MD Sep 21, 2018 11:14
[2018-09-21 12:00] VITALS: BP 108/60
[2018-09-21 13:39] VITALS: BP 108/60
--- NOTE | 2018-09-21 16:07 | Anesthesia-General Post-Op ---
General Patient Condition Mental Status/LOC: Same as Preop Cardiovascular: Satisfactory Nausea/Vomiting: Absent Respiratory: Satisfactory Pain: Controlled Complications: Absent Post Op Complications Complications None Follow Up Care/Instructions Patient Instructions None needed. Anesthesia/Patient Condition Patient Condition Patient is doing well, no complaints, stable vital signs, no apparent adverse anesthesia problems. No complications reported per nursing. VIANEY HARRIS CRNA Sep 21, 2018 16:07
== END 2018-09-21 12:50 | disposition home or self-care (01) ==
LOC: SDC 07:56 → 4TH 14:10 → SDC 09-21 12:50
PROVIDERS: ATTEND Surgery
DX: K43.9 Ventral hernia without obstruction or gangrene (principal); K21.9 Gastro-esophageal reflux disease without esophagitis; K44.9 Diaphragmatic hernia without obstruction or gangrene; G93.2 Benign intracranial hypertension; E66.01 Morbid (severe) obesity due to excess calories; Z68.41 Body mass index [BMI] 40.0-44.9, adult; Z87.891 Personal history of nicotine dependence
CPT/HCPCS: 36415; 84703; 85025; 87081; 94664

== ENCOUNTER → 2018-10-15 | Outpatient (CLI) | payer OTHER ==
[~2018-10-15] MED LIST changes: +ACHD5005 PO
--- NOTE | 2018-10-15 15:28 | Diagnostic Imaging Report ---
INDICATION: Bilateral hip pain. TIME OF EXAM: 03:08 p.m. FINDINGS: An AP view of the pelvis and multiple views of bilateral hips were obtained. Femoral acetabular alignment is normal bilaterally. The hip joint spaces are well-maintained. Both the femoral heads and necks appear to be intact. No fracture is seen. The rami are unremarkable. 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 SI joints are unremarkable. IMPRESSION: 1. No acute bony abnormality is seen. 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 Dictated by: Dictated on workstation # [id number]
== END ==
LOC: RAD 14:52
PROVIDERS: ATTEND Family Medicine
DX: M89.9 Disorder of bone, unspecified (principal); M25.551 Pain in right hip; M25.552 Pain in left hip
CPT/HCPCS: 73523

== ENCOUNTER → 2018-11-27 | Outpatient (CLI) | payer OTHER ==
[~2018-11-27] VITALS: Ht 165.1 cm; Wt 111.1 kg
[~2018-11-27] MED LIST changes: +GADOBUTROL 7.5 MMOL/7.5 ML (GADAVIST) VIAL IV ONE; +IOHEXOL 240 MGI/ML 20 ML (OMNIPAQUE) VIAL IV ONE
--- NOTE | 2018-11-27 12:03 | Diagnostic Imaging Report ---
INDICATION: Left hip pain. Patient presents for left hip injection prior to MRI. FINDINGS: Patient was brought to the procedure room, placed on table in the supine position. Skin of the left hip was prepped and draped in the usual sterile fashion. Small amount of 1% lidocaine was utilized for local anesthesia. 20-gauge needle was advanced into the left hip and placed with its tip at the femoral head neck junction laterally. 15 mL solution of iodinated contrast, normal saline, and gadolinium was injected under fluoroscopic observation. 22 seconds of fluoroscopy was utilized. Needle was withdrawn and hemostasis was obtained. Patient tolerated the procedure well and was sent to MRI in satisfactory condition. IMPRESSION: Successful left hip injection of gadolinium contrast solution, using fluoroscopy. Dictated by: Dictated on workstation # [id number]
--- NOTE | 2018-11-27 13:03 | Diagnostic Imaging Report ---
EXAMINATION: Magnetic resonance imaging of the pelvis and left hip with intra-articular contrast. DATE: November 27, 2018. COMPARISON: Left hip arthrogram of November 27, 2018. Radiographs of October 15, 2018. INDICATION: 28-year-old female, left hip pain. Evaluation for labral tear. TECHNIQUE: Magnetic Resonance Imaging sequences were performed of the pelvis and left hip following the intra-articular administration of contrast. There are limitations of the exam as the patient was unable to complete the coronal T2 fat saturation sequence. FINDINGS: TENDONS AND MUSCLES: The gluteus khushboo muscles and their origins and insertions are intact bilaterally. The tendons and muscles of the greater trochanter (gluteus minimus, piriformis, and gluteus medius) are intact bilaterally. Both common hamstring attachments on the ischial tuberosities are intact and the extensor muscles of the thigh are intact. The visualized portions of the flexors and adductor muscles of the thigh and their attachments on the pelvis and hips are intact. Both iliopsoas and iliacus muscles are intact. The bilateral iliopsoas tendons are intact. The piriformis muscles appear symmetric in size and unremarkable in signal. HIPS AND SACROILIAC JOINTS: There is low fdzaov-iu-rrryy ratio on targeted MRI sequences of the left hip. This likely relates to patient body habitus as well as the coil utilized. There is no definite distinct labral tear. There is no identified paralabral cyst. There is no identified intra-articular body or prominent synovitis associated with the left hip joint. There is no fluid-filled right hip labral tear or paralabral cyst on large amwia-ce-[id number] axial STIR sequence evaluation. The sacroiliac joints are unremarkable. LUMBAR SPINE: The visible portions of the lumbar spine are unremarkable on limited assessment. BONE: The bones all have normal configuration. There is edema-like signal in the pubic bones near the pubic symphysis without identified fracture line. The pubic symphysis is not abnormally widened. There is no bone erosion. There is no adjacent soft tissue swelling. The additional bone marrow signal is unremarkable. BURSAE AND SOFT TISSUES: The bursae and soft tissues surrounding the pelvis and hips are within normal limits. IMPRESSION: 1. Edema like signal within the pubic bones adjacent to the pubic symphysis without identified fracture line. This potentially could reflect stress related marrow changes. 2. No discretely identified left hip labral tear. 3. Intact muscles and tendons. Dictated by: Dictated on workstation # [id number]
== END ==
LOC: RAD 10:06
PROVIDERS: ATTEND Orthopaedic Surgery
DX: M25.552 Pain in left hip (principal)
CPT/HCPCS: 27093; 73525; 73722

== ENCOUNTER → 2018-12-04 | Outpatient (CLI) | payer BC, OTHER ==
[~2018-12-04] VITALS: Ht 165.1 cm; Wt 111.1 kg
--- NOTE | 2018-12-04 12:21 | Diagnostic Imaging Report ---
INDICATION: Right hip pain. TECHNIQUE: The patient was brought to the procedure room and placed on the table in the supine position. The skin of the right hip was prepped and draped in the usual sterile fashion. A small amount of 1% lidocaine was utilized for local anesthesia. A 20-gauge spinal needle was advanced into the right hip and placed with the tip at the femoral head/neck junction laterally. A 15 mL solution of iodinated contrast, normal saline, and gadolinium was injected under fluoroscopic observation. The needle was withdrawn and hemostasis was obtained. A total of 15 seconds of fluoroscopy was utilized. The patient tolerated the procedure well and was sent to MRI in satisfactory condition. IMPRESSION: Successful right hip injection of gadolinium contrast solution using fluoroscopy. Dictated by: Dictated on workstation # [id number]
--- NOTE | 2018-12-04 13:28 | Diagnostic Imaging Report ---
EXAMINATION: MRI of the right hip from 12/04/2018. TECHNIQUE: Multiplanar, multisequence contrast-enhanced MRI of the right lower extremity was accomplished. INDICATION: Right hip pain, question labral tear. COMPARISON: Correlation is made to prior MRI of the left hip dated 11/27/2018. FINDINGS: Again noted is edema along the pubic symphysis and adjacent soft tissues. These findings are stable from previous examination. This is slightly more pronounced on the left than the right. No underlying fracture lines are appreciated. The visualized intrapelvic structures demonstrate no acute abnormalities. Minimal free fluid, most likely physiologic. Within the right hip, there is focal irregularity throughout the anterosuperior labrum consistent with a tear. This is seen on sagittal imaging, especially images 9 through 11. The femoral head and neck are grossly unremarkable. The hamstrings tendons are bilaterally symmetric and intact. Visualized musculature is also intact and unremarkable. Tendons at the greater trochanter appear intact. Visualized iliopsoas tendon and musculature as well as the iliacus muscles are unremarkable. IMPRESSION: 1. Tear of the anterosuperior labrum. 2. Persistent edema at the pubic symphysis bilaterally, left worse than right. This is nonspecific as a fracture line is not appreciated. It may be on the basis of stress reaction. Contusion with inflammation is also possible, correlate with symptoms and history. 3. Remaining visualized structures are unremarkable. Dictated by: Dictated on workstation # [id number]
== END ==
LOC: RAD 10:00
PROVIDERS: ATTEND Orthopaedic Surgery
DX: S73.101A Unspecified sprain of right hip, initial encounter (principal)
CPT/HCPCS: 27093; 73525; 73722

== ENCOUNTER → 2019-01-20 | Outpatient (CLI) | payer BC ==
[~2019-01-20] MED LIST changes: +GADOBUTROL 10 MMOL/10 ML (GADAVIST) VIAL IV ONE; -GADOBUTROL 7.5 MMOL/7.5 ML (GADAVIST) VIAL IV ONE; -IOHEXOL 240 MGI/ML 20 ML (OMNIPAQUE) VIAL IV ONE
--- NOTE | 2019-01-20 14:56 | Diagnostic Imaging Report ---
PROCEDURE: MR imaging of the brain with and without contrast. TECHNIQUE: Multiplanar, multisequence MR imaging of the brain was performed with and without contrast. INDICATION: Pseudotumor. FINDINGS: The previous MRI brain exam performed on 05/22/2014 failed to show any sign of an acute intracranial abnormality or of a mass lesion. On this study, there is still no mass, shift of the midline, or hemorrhage. There is no abnormal signal arising from the brain on the diffusion series to indicate an area of acute ischemia. There is no abnormal enhancement on the post contrast sequence to suggest a neoplastic or infectious process either. The ventricles are not abnormally dilated and stable in size when compared to the prior study. There is no abnormal signal arising from the periventricular white matter on the FLAIR series to suggest demyelinating disease. The sella is not enlarged and the expected carotid flow-voids are evident bilaterally. As noted on the prior exam, the left maxillary antrum is hypoplastic and there is sinusitis. The sinuses are otherwise clear. The orbits are symmetrical and within normal limits. The seventh and eighth nerve complexes are unremarkable. IMPRESSION: 1. There is no evidence for an acute intracranial abnormality. 2. There is no abnormal enhancement to suggest neoplastic or infectious process and there is no sign of demyelinating disease. 3. When compared to the previous study, there has been no significant change. Dictated by: Dictated on workstation # [id number]
== END ==
LOC: RAD 13:04
PROVIDERS: ATTEND Family Medicine
DX: G93.2 Benign intracranial hypertension (principal)
CPT/HCPCS: 70553

== ENCOUNTER 2019-02-11 09:43 | Outpatient (CLI) | payer BC ==
[~2019-02-11] VITALS: Ht 165.1 cm; Wt 104.3 kg
[~2019-02-11 09:43] MED LIST changes: -GADOBUTROL 10 MMOL/10 ML (GADAVIST) VIAL IV ONE
[2019-02-11 10:00] VITALS: BP 135/75
[2019-02-11 10:10] LABS: HEMOGLOBIN 13.4 G/DL (11.5-16.0); MEAN PLATELET VOLUME 10.4 FL (7.4-10.4); WHITE BLOOD COUNT 8.7 10^3/uL (4.3-11.0)
--- NOTE | 2019-02-11 11:40 | Anesthesia-Procedure Note ---
Procedures/Interventions Procedure Start/Stop/Diagnosis Date of Procedure: Feb 11, 2019 Start Time: 10:32 Referring Physician: Jose Preprocedural Diagnosis: pseudotumor cerebri Stop Time: 11:15 Lumbar Puncture Discussed Risk,Benefits: Yes Patient Consents: Yes Position: Lying, L4-5, Left Sterile Technique: Yes Opening Pressure: 26 mmHg Fluid Color: clear Spinal Needle Used: Other (25g Pencan) Procedure Notes Patient's history reviewed. She complains of headache more recently after the of her son and being unable to lose weight. Dr. Garcia was called to verify what he wanted other than opening pressure and he ordered to draw off 30 cc CSF to relieve pressure. The patient was in left lateral position. Chloraprep used. 22g needle used to localize at L4-L5. 25g Pencan 3.5 inch needle used to obtain CSF, with an opening pressure of 26 cm H20. CSF clear. A total of 22 cc of CSF was allowed to free flow out and the patient started complaining of back pain. I explained to her that we were trying to pull of 30cc; however, she requested I stop at 22cc. The needle was removed and a bandaid applied over the site. The patient denied complaints after she repositioned supine and I gave her the discharge instructions. We will be available for further consultation if need. JOHNATHAN HERNANDEZ CRNA Feb 11, 2019 11:40
[2019-02-11 11:45] VITALS: BP 127/72
== END 2019-02-11 11:55 | disposition home or self-care (01) ==
LOC: SDC 09:43
PROVIDERS: ATTEND Family Medicine
DX: G93.2 Benign intracranial hypertension (principal); R51 Headache
CPT/HCPCS: 36415; 85027

== ENCOUNTER 2019-12-17 07:46 | Outpatient (RCR) | payer BC ==
[~2019-12-17] VITALS: Ht 165.1 cm; Wt 101.5 kg
[~2019-12-17 07:46] MED LIST changes: -TRAM50TA2 PO
[2019-12-17 08:29] VITALS: BP 119/74
[2019-12-17] MEDS ORDERED: ACET500C40 PO (08:32)
[2019-12-17 09:02] LABS: BASOPHILS % (AUTO) 0 % (0-10); EOSINOPHILS # (AUTO) 0.1 10^3/uL (0.0-0.3); EOSINOPHILS % (AUTO) 1 % (0-10); HEMATOCRIT 43 % (35-52); HEMOGLOBIN 14.2 G/DL (11.5-16.0); LYMPHOCYTES # (AUTO) 2.3 X 10^3 (1.0-4.0); LYMPHOCYTES % (AUTO) 22 % (12-44); MEAN CORPUSCULAR HEMOGLOBIN 29 PG (25-34); MEAN CORPUSCULAR HGB CONC 33 G/DL (32-36); MEAN CORPUSCULAR VOLUME 89 FL (80-99); MEAN PLATELET VOLUME 10.2 FL (7.4-10.4); MONOCYTES # (AUTO) 0.7 X 10^3 (0.0-1.0); MONOCYTES % (AUTO) 6 % (0-12); NEUTROPHILS # (AUTO) 7.6 X 10^3 (1.8-7.8); NEUTROPHILS % (AUTO) 71 % (42-75); PLATELET COUNT 302 10^3/uL (130-400); RED CELL DISTRIBUTION WIDTH 13.7 % (10.0-14.5); WHITE BLOOD COUNT 10.7 10^3/uL (4.3-11.0)
[2019-12-17] MEDS ORDERED: TOPI50CA5 PO (09:53)
[2019-12-17] MEDS ORDERED: VENL75TA2 PO (09:53)
[2019-12-17] MEDS ORDERED: LEVO50TA6 PO (09:53)
[2019-12-17] MEDS ORDERED: SUCR1TAB36 PO (09:53)
[2019-12-17] MEDS ORDERED: LISD30CA3 PO (09:53)
== END 2019-12-17 09:57 | disposition home or self-care (01) ==
LOC: PREOP 07:46
PROVIDERS: ATTEND Obstetrics & Gynecology
DX: Z01.812 Encounter for preprocedural laboratory examination (principal); Z01.818 Encounter for other preprocedural examination; N92.0 Excessive and frequent menstruation with regular cycle; D64.9 Anemia, unspecified; Z11.59 Encounter for screening for other viral diseases; Z11.2 Encounter for screening for other bacterial diseases
CPT/HCPCS: 84703; 85025; 87081; U0002; 36415; 87635

== ENCOUNTER 2019-12-19 10:59 | Day surgery (SDC) | payer BC ==
[~2019-12-19] VITALS: Ht 165.1 cm; Wt 101.5 kg
[2019-12-19] VITALS (11 sets, daily range): BP systolic 103–123; BP diastolic 56–81
[~2019-12-19 10:59] MED LIST changes: +ACET500C40 PO; +LEVO50TA6 PO; +LISD30CA3 PO; +TOPI50CA5 PO; +VENL75TA2 PO
[2019-12-19] MEDS ORDERED: ceFAZolin INJECTION 1,000 MG in WATER (STERILE) FOR INJECTION 10 ML IV ONE (11:15)
[2019-12-19] MEDS ORDERED: BUP/EPI 0.5% 1:200,000 (SENSORCAINE) 30 ML VIAL ONE (11:46)
[2019-12-19] MEDS ORDERED: fentaNYL INJECTION 100 MCG/2 ML AMP ONE (12:14)
[2019-12-19] MEDS ORDERED: MIDAZOLAM 2 MG/2 ML (VERSED) VIAL ONE (12:14)
[2019-12-19] MEDS ORDERED: ONDANSETRON 4 MG/2 ML (SDV) Z0FRAN ONE (12:14)
[2019-12-19] MEDS ORDERED: ROCURONIUM 10 MG/ML 5 ML SYRINGE IV ONE (12:14)
[2019-12-19] MEDS ORDERED: LIDOCAINE PF 2% 5 ML (XYLOCAINE) VIAL ONE (12:14)
[2019-12-19] MEDS ORDERED: proPOfol 200 MG/20 ML (DIPRIVAN) VIAL IV ONE (12:14)
[2019-12-19] MEDS ORDERED: NAPR-1070 PO (12:26)
[2019-12-19] MEDS ORDERED: OXYC1TAB87 PO ×2 (12:26→12:28)
[2019-12-19] MEDS ORDERED: DOCU-143 PO (12:26)
[2019-12-19] MEDS ORDERED: GLYCOPYRROLATE 0.2 MG/ML (ROBINUL) 2 ML VIAL ONE (12:27)
[2019-12-19] MEDS ORDERED: NEOSTIGMINE 3 MG/3 ML VIAL ONE (12:27)
[2019-12-19] MEDS ORDERED: DEXAMETHASONE 10 MG/ML (DECADRON) 1 ML VIAL ONE (12:27)
--- NOTE | 2019-12-19 12:27 | Discharge Inst-Surgical ---
Discharge Inst-Surgical Depart Medication/Instructions New, Converted or Re-Newed RX: RX on Chart Consults/Follow Up Patient Instructions: as directed Orders & Referrals Follow Up Appt: Call to make follow up appt. for patient in 4 weeks. Activity: Rest for 24 hours, than as tolerated. Wound Care: May remove Band-Aid tomorrow. Replace as desired. Keep incisions clean and dry. Wash daily with soap and water. Please call in RX to patient pharmacy. Diet: As tolerated-Clear Liquids only if nauseated. Tomorrow, may shower or tub bathe as desired. No driving for 24 hours, no alcoholic beverages for 24 hours, and nothing per vagina (no tampons, douching, or intercourse) for 8 weeks. Patient to return to the clinic as soon as possible for: Temperature greater than 101F, Severe Pain, Foul discharge from incision or vagina, Excessive Bleeding (more than a period). Activity Activity as Tolerated: No Diet Discharge Diet: No Restrictions KELLEE TADEO MD Dec 19, 2019 12:27
--- NOTE | 2019-12-19 12:29 | Progress Note-Pre Operative ---
Pre-Operative Progress Note H&P Reviewed The H&P was reviewed, patient examined and no changes noted. Date Seen by Provider: Dec 19, 2019 Time Seen by Provider: 12:28 Date H&P Reviewed: Dec 19, 2019 Time H&P Reviewed: 12:29 Pre-Operative Diagnosis: DUB/Menorrhagia KELLEE TADEO MD Dec 19, 2019 12:29
[2019-12-19] MEDS ORDERED: ESTROGENS CONJ INJECTION 25 MG in WATER (STERILE) FOR INJECTION 5 ML IV ONE (12:30)
[2019-12-19] MEDS ORDERED: ONDANSETRON 4 MG/2 ML (SDV) Z0FRAN IVP PRN ×2 (12:30→15:15)
--- NOTE | 2019-12-19 12:30 | Progress Note-Post Operative ---
Post-Operative Progess Note Surgeon (s)/Morning Babysitter (s) Surgeon KELLEE TADEO MD Morning Babysitter: Bria Spear Pre-Operative Diagnosis DUB/Menorrhagia Post-Operative Diagnosis same with extensive abdominal adhesions Procedure & Operative Findings Date of Procedure 12/19/19 Procedure Performed/Findings TLH/BS /extensive adhesive lysis and cystoscopy Anesthesia Type GETA Estimated Blood Loss Estimated blood loss (mL): Minimal Specimens/Packing Specimens Removed TLH/BS KELLEE TADEO MD Dec 19, 2019 12:29
[2019-12-19] MEDS: LACTATED RINGERS 1,000 ML IV PRN ×2 (13:54→15:20)
[2019-12-19] MEDS ORDERED: SEVOFLURANE (ULTANE) 15 ML INHAL SOLN ONE ×5 (13:56→14:39)
[2019-12-19] MEDS ORDERED: morphine INJ 10 MG/ML 1ML (SYR OR VIAL) ONE ×2 (14:46→15:13)
--- NOTE | 2019-12-19 15:04 | Anesthesia-General Post-Op ---
General Patient Condition Mental Status/LOC: Same as Preop Cardiovascular: Satisfactory Nausea/Vomiting: Absent Respiratory: Satisfactory Pain: Controlled Complications: Absent Post Op Complications Complications None Follow Up Care/Instructions Patient Instructions None needed. Anesthesia/Patient Condition Patient Condition Patient is doing well, no complaints, stable vital signs, no apparent adverse anesthesia problems. No complications reported per nursing. HAL MATIAS CRNA Dec 19, 2019 15:04
[2019-12-19] MEDS ORDERED: HYDROmorphone 2 MG/ML VIAL (DILAUDID) IV ONE (15:15)
[2019-12-19] MEDS ORDERED: fentaNYL INJECTION 100 MCG/2 ML AMP IVP ONE (15:15)
[2019-12-19] MEDS ORDERED: morphine INJ 10 MG/ML 1ML (SYR OR VIAL) IVP ONE (15:15)
[2019-12-19] MEDS ORDERED: MEPERIDINE (DEMEROL) INJ 50 MG/ML IVP ONE (15:15)
[2019-12-19] MEDS ORDERED: WATER (STERILE) FOR INJECTION 10 ML ONE (15:18)
[2019-12-19] MEDS ORDERED: ESTROGENS CONJ IV 25 MG/5 ML (PREMARIN) VIAL ONE (15:18)
--- NOTE | 2019-12-19 16:00 | NUR ---
Pt to [facility] room 306 via bed accompanied by PACU staff. Report rec'd from Thelma Dover RN. Assessment completed, VS taken. Calf SCD's on. Mckoy draining clear yellow urine to dependent drainage. IV fluids to pump. Pt oriented to room and call light. Pt c/o pain 10/10 and moaning. Pain medication options discussed. Pt desires demerol and phenergan.
[2019-12-19] MEDS ORDERED: PROMETHAZINE INJ 25 MG/ML (PHENERGAN) AMP ONE (16:18)
[2019-12-19] MEDS ORDERED: MEPERIDINE (DEMEROL) INJ 100 MG/ML ONE (16:18)
[2019-12-19] MEDS: PROMETHAZINE INJ 25 MG/ML (PHENERGAN) AMP IM PRN ×2 (16:22→21:25)
[2019-12-19] MEDS: MEPERIDINE (DEMEROL) INJ 100 MG/ML IM PRN ×2 (16:23→21:25)
--- NOTE | 2019-12-19 16:45 | NUR ---
Spo2 dropping to 88% as pt is drowsy from medication. 2L oxygen supplied via [place]. Improvement in Spo2 to 95-97%. Will continue to monitor
--- NOTE | 2019-12-19 18:00 | NUR ---
Pt sleeping, stirs upon RN entering room. Denies needs or concerns. Continues relaxing comfortably
[2019-12-19] MEDS: NAPROXEN 250 MG (NAPROSYN) TABLET PO SCH (20:33)
--- NOTE | 2019-12-19 20:58 | OPERATIVE REPORT ---
DATE OF SERVICE: 12/19/2019 PREOPERATIVE DIAGNOSES: Dysfunctional uterine bleeding, menorrhagia. POSTOPERATIVE DIAGNOSES: Dysfunctional uterine bleeding, menorrhagia. OPERATIVE PROCEDURE: Total laparoscopic hysterectomy with bilateral salpingectomies as well as extensive abdominal wall adhesiolysis. OPERATIVE DESCRIPTION: With the patient in the supine position under satisfactory general anesthesia, she was repositioned in dorsal lithotomy position in the [facility] and prepped and draped in the usual fashion for abdominal and vaginal surgery. Mckoy catheter was placed in the urinary bladder. Weighted speculum placed in posterior fornix of vagina, cervix exposed and grasped anteriorly with single tooth tenaculum. Uterus was sounded to 9 cm with uterine sound. The cervix was then serially dilated with Osvaldo dilators to accommodate a Sharri II manipulator, which was placed using a 6 mm x 8 cm uterine probe and a 25 mm colpotomy ring. Sutures of #1 Vicryl placed at 3 and 9 o'clock position of the cervix to affix the uterus to the manipulator. The patient was brought in low dorsal lithotomy position. Initially, a 12 mm incision made superior to the umbilicus and an attempt was made to place a Veress needle there. It was obvious there were some adhesions or some change in the anatomy from trying to place instrument. A second attempt was made through a stab wound superior to the umbilicus that also seems to have altered anatomy, so a stab wound was made at Carter's point. Veress needle was placed easily. The abdomen was insufflated with 2.4 liters of carbon dioxide and then the Veress needle was removed. A 12 mm port was placed through the midline upper abdominal incision. The abdominal wall was transilluminated and ports of 8 mm were placed in the right and left lateral abdominal rowland 2 to 3 cm superior to the umbilicus and 8 to 9 cm lateral to the umbilicus. It was readily apparent. There were extensive adhesions of the omentum to the anterior abdominal wall from the patient's previous abdominal surgeries. A 5 mm incision was placed in the mid right lower quadrant allowing for placement of the scope to visualize the adhesions. The right lateral port was free of the adhesions using a 5 mm scope in the lower 5 mm port and monopolar toby, the adhesions were lysed very carefully very meticulously from their attachment site at the abdominal wall. Eventually after placing the camera in the umbilical port for additional exposure and visualization once the bulk of the adhesions were taken down all the adhesions to the anterior abdominal wall were freed. There was bowel involved in the tissue that were adhesions, but there was no bowel near the abdominal wall. Bowel integrity was maintained throughout. With the adhesions freed, the da Shanta column was advanced on the patient and docked and operative instrument placed in right and left lateral ports and I retired to the console. At the console using the vessel sealer on the right and a bipolar fenestrated grasper on the left, the pelvis was examined. Both ovaries were normal fallopian tubes had evidence of clubbing and scar tissue. The uterus appeared mottled consistent with adenomyosis. The ureters were seemed to peristalse, the right easier than the left. The decision to The laparoscope was rotated. The appendix appeared to be surgically absent. The right fallopian tube was grasped and elevated. It was involved with extensive hydrosalpinx. The mesosalpinx was divided with the vessel sealer continuing across the mesosalpinx to the uteroovarian pedicle and then the uteroovarian pedicle was clamped, cauterized and divided as was the round ligament, the broad ligament, the cardinal ligament. Same procedure performed on the left, allowing for removal of both fallopian tubes eventually with the uterus anterior lower uterine segment peritoneum was divided using a monopolar shear in place of the vessel sealer. The bladder was carefully dissected down off the lower uterine segment and colpotomy incision was started at 12 o'clock position onto the colpotomy ring. That incision was continued circumferentially until the entire colpotomy ring was exposed and then the uterus with the tubes still attached was extracted through the vagina. The vaginal cuff was closed with a single suture of V-Loc barbed suture starting from the right angle and continuing all the way across the vaginal cuff. Good reapproximation was evident. Good hemostasis was evident. The last couple of stitches of the suture was used to reperitonealize the vaginal cuff. Care had been taken to include inclusion include the uterine vessel pedicles bilaterally to ensure hemostasis with no bleeding and no abnormal pathology laparoscopic portion of the procedure was halted. The operative instruments were removed under direct vision after first examined. The bowel and the areas of adhesiolysis and see no evidence of compromise of the bowel. The abdomen was evacuated insufflating gas in the process of removing the ports. The skin incisions were closed with kurt. At the 6 sites that being the left upper quadrant supraumbilical right and left lateral with a second lateral incision on the right secondary to the patient's adhesions that had been obstructing placement of the port initially and then in the right lower quadrant. All the skin incisions were closed with kurt. The fascia at the supraumbilical incision was closed with [id number] suture of 2-0 Vicryl. The vagina was examined by placing a speculum and it was seemed that the vaginal apex was completely reapproximated and hemostatic. Colposcopy a cystoscopy was performed using LR as a distending medium of the . The bladder rowland were intact. A free efflux was noted from the right ureter. Eventually free efflux was noted from the left. With that confirmed, the procedure was terminated. Sponge and needle counts were correct. Blood loss was minimal. The patient tolerated the procedure well and was transferred to recovery room in stable condition after being uneventfully awaken from her general anesthesia. Job ID: [id number] DocumentID: [id number] Dictated Date: 12/19/2019 14:56:37 [employer] Date: 12/19/2019 20:57:58 Dictated By: KELLEE TADEO MD
[2019-12-19] MEDS: D5 LR IV SOLUTION 1,000 ML IV SCH (23:04)
[2019-12-20] VITALS: BP 105/57
[2019-12-20] MEDS: NAPROXEN 250 MG (NAPROSYN) TABLET PO SCH ×2 (03:05→08:46)
[2019-12-20] MEDS: D5 LR IV SOLUTION 1,000 ML IV SCH (03:17)
[2019-12-20] MEDS: oxyCODONE/APAP 5/325MG (PERCOCET 5) TABLET PO PRN ×2 (03:53→08:46)
[2019-12-20 04:00] VITALS: BP 104/56
--- NOTE | 2019-12-20 08:53 | Progress Note ---
Standard Progress Note Progress Notes/Assess & Plan Date Seen by a Provider: Dec 20, 2019 Time Seen by a Provider: 08:51 Progress/Assessment & Plan This patient is without complaint. She is ambulating, tolerating oral intake well has good pain control. She has not voided yet this morning since her catheters were removed. Vital Signs Date Time Temp Pulse Resp B/P (MAP) Pulse Ox O2 Delivery O2 Flow Rate FiO2 12/20/19 04:00 36.4 74 16 104/56 (72) 95 Room Air 12/20/19 00:00 36.4 78 16 105/57 (73) 97 Nasal Cannula 2.00 12/19/19 21:52 96 Nasal Cannula 2.00 12/19/19 20:00 36.2 86 16 117/65 (82) 99 Nasal Cannula 2.00 12/19/19 18:15 36.4 100 16 118/56 (76) 97 Nasal Cannula 2.00 12/19/19 16:40 82 18 113/62 (79) 97 Room Air 12/19/19 16:05 36.3 79 18 111/61 (78) 97 Room Air 12/19/19 16:00 Room Air 12/19/19 15:50 36.4 20 107/67 (80) 98 Room Air 12/19/19 15:45 Room Air 12/19/19 15:40 16 111/61 (78) 100 OxyMask 5 12/19/19 15:30 22 104/67 (79) 100 OxyMask 5 12/19/19 15:30 OxyMask 5 12/19/19 15:20 21 103/62 (76) 98 OxyMask 10 12/19/19 15:15 OxyMask 10 12/19/19 15:10 17 107/71 (83) 98 OxyMask 10 12/19/19 15:01 36.2 22 107/56 (73) 100 OxyMask 10 12/19/19 15:01 OxyMask 10 12/19/19 11:15 36.4 68 18 123/81 (95) 98 Room Air I & O 12/20/19 07:00 Intake Total 4170 ml Output Total 2150 ml Balance 2020 ml Vital signs are stable. Patient is afebrile. The abdomen is benign. The surgical dressings are clean and dry. Extremities show no clubbing cyanosis. There is no Homans sign. Assessment and plan postoperative day number 1 doing well. Plan is for routine convalescence care with discharge home with follow-up in clinic Final Diagnosis Dysfunctional uterine bleeding/menorrhagia KELLEE TADEO MD Dec 20, 2019 08:53
[2019-12-20 09:00] VITALS: BP 115/58
[2019-12-20] MEDS ORDERED: DOCUSATE SODIUM 100 MG (COLACE) CAP PO SCH (09:00)
[2019-12-20 13:00] VITALS: BP 132/62
== END 2019-12-20 14:09 | disposition home or self-care (01) ==
LOC: SDC 10:59 → WS 15:50 → SDC 12-20 14:09
PROVIDERS: ATTEND Obstetrics & Gynecology
DX: N83.8 Other noninflammatory disorders of ovary, fallopian tube and broad ligament (principal); N70.11 Chronic salpingitis; N92.0 Excessive and frequent menstruation with regular cycle; N93.8 Other specified abnormal uterine and vaginal bleeding; I10 Essential (primary) hypertension; F90.9 Attention-deficit hyperactivity disorder, unspecified type; F32.9 Major depressive disorder, single episode, unspecified; F41.9 Anxiety disorder, unspecified; G89.29 Other chronic pain; M54.9 Dorsalgia, unspecified; Z88.8 Allergy status to other drugs, medicaments and biological substances; Z79.899 Other long term (current) drug therapy; Z79.891 Long term (current) use of opiate analgesic
CPT/HCPCS: 86850; 86900; 86901; 88307; 94664

== ENCOUNTER → 2020-03-01 | Outpatient (CLI) | payer BC ==
[~2020-03-01] VITALS: Ht 165.1 cm; Wt 99.1 kg
[~2020-03-01] MED LIST changes: +DOCU-143 PO; +GADOBUTROL 7.5 MMOL/7.5 ML (GADAVIST) VIAL IV ONE; +HOLD METFORMIN - RECEIVED CONTRAST 20 ML VIAL IV SCH; +IOHEXOL 300 MG/ML 30 ML (OMNIPAQUE 300) VIAL IV ONE; +NAPR-1070 PO; +OXYC1TAB87 PO
--- NOTE | 2020-03-01 14:20 | Diagnostic Imaging Report ---
INDICATION: Hip pain. TECHNIQUE AND FINDINGS: Patient was placed on the table in supine position. Left hip was prepped and draped utilizing maximal sterile barrier technique. Local anesthesia was obtained with 2% lidocaine. Needle was advanced in the left hip under fluoroscopic control. A mixture of saline, Omnipaque and gadolinium was infused. Needle was removed and adequate hemostasis was obtained. Patient tolerated procedure well as far stable condition. IMPRESSION: Successful left hip injection prior to MRI as described. Dictated by: Dictated on workstation # [id number]
--- NOTE | 2020-03-01 16:26 | Diagnostic Imaging Report ---
PROCEDURE: MRI left joint lower extremity with contrast. TECHNIQUE: Multiplanar, multisequence contrast-enhanced MRI of the left hip was accomplished. INDICATION: Left hip pain. COMPARISON: Left hip MRI of 12/04/2018. FINDINGS: Left hip: The hip is well-distended with intra-articular contrast. There is truncation of the anterior superior labrum likely due to prior surgery in this region. No para-labral cyst or chondral labral separation is appreciated. Ligamentum teres is intact. Articular cartilage is well preserved. Muscles and tendons: The distal iliopsoas tendon is intact. Proximal hamstring complexes are normal. Gluteus medius and minimus insertions are intact on both sides. No edema within the adductor musculature. Bones: No osteonecrosis of the femoral heads. No features of sacroiliitis. No stress fracture within the pelvis or proximal femurs. Pelvis: Ovaries are physiologic in appearance with small follicles bilaterally. No free pelvic fluid. No pelvic or inguinal lymphadenopathy. IMPRESSION: 1. Truncated morphology of the anterior superior labrum could represent prior surgical change as reported history is the patient has had labral repair on the left. Alternatively, if the patient has not had a labral repair on this side, then this may represent some degenerative tearing. No para-labral cyst or chondral labral separation. 2. Articular cartilage is preserved. 3. No muscle strain or tendon tear. 4. Previously noted bone marrow edema on both sides of the symphysis pubis has resolved. Dictated by: Dictated on workstation # [id number]
== END ==
LOC: RAD 12:59
PROVIDERS: ATTEND Physician Assistant Medical
DX: M25.552 Pain in left hip (principal); Z98.890 Other specified postprocedural states
CPT/HCPCS: 27093; 73525; 73722

== ENCOUNTER → 2020-08-03 | Outpatient (CLI) | payer BC ==
[~2020-08-03] MED LIST changes: -GADOBUTROL 7.5 MMOL/7.5 ML (GADAVIST) VIAL IV ONE; -HOLD METFORMIN - RECEIVED CONTRAST 20 ML VIAL IV SCH; -IOHEXOL 300 MG/ML 30 ML (OMNIPAQUE 300) VIAL IV ONE; -OXYC-465 PO; +OXYC-556 PO
== END ==
LOC: LABNPT 05:29
PROVIDERS: ATTEND Emergency Medicine
DX: Z01.812 Encounter for preprocedural laboratory examination (principal)

== ENCOUNTER → 2020-12-03 | Outpatient (CLI) | payer BC | LOC: LABNPT 06:48 | PROVIDERS: ATTEND Internal Medicine Gastroenterology | DX: Z01.812 Encounter for preprocedural laboratory examination (principal); Z20.822 Contact with and (suspected) exposure to COVID-19 | CPT/HCPCS: 87635 ==

== ENCOUNTER → 2020-12-22 | Outpatient (CLI) | payer BC ==
--- NOTE | 2020-12-22 14:52 | Diagnostic Imaging Report ---
INDICATION: Fall with injury to the right forearm. TIME OF EXAM: 11:36 AM Two views of the right forearm were obtained. Alignment of the wrist and elbow is normal. Questional fracture at the radial styloid is noted. No other fractures are seen. IMPRESSION: Questionable fracture at the radial styloid. The study is otherwise unremarkable. Dictated by: Dictated on workstation # [id number]
--- NOTE | 2020-12-22 14:53 | Diagnostic Imaging Report ---
INDICATION: Fall with right wrist injury. TIME OF EXAM: 11:37 AM Three views of the right wrist were obtained. There is a lucency in the region of the styloid of the radius suspicious for a fracture. The age of this is indeterminate. Correlation to pain at the level of the radial styloid is recommended. Distal ulna is intact. Carpus is intact. Visualized metacarpals are unremarkable. IMPRESSION: Age-indeterminate fracture of the radial styloid. Clinical correlation to pain at this location is recommended. No other abnormality is seen. Dictated by: Dictated on workstation # [id number]
== END ==
LOC: RAD 11:13
PROVIDERS: ATTEND Family Medicine
DX: S52.511A Displaced fracture of right radial styloid process, initial encounter for closed fracture (principal); W19.XXXA Unspecified fall, initial encounter
CPT/HCPCS: 73090; 73110

== ENCOUNTER → 2021-05-03 | Outpatient (CLI) | payer BC ==
--- NOTE | 2021-05-03 11:03 | Diagnostic Imaging Report ---
PROCEDURE: US Hepatic (Liver). TECHNIQUE: Multiple Real-time grayscale images were obtained over the right upper quadrant in various projections. INDICATION: Weight loss and abdominal pain. FINDINGS: The liver parenchyma shows multiple echogenic areas along the medial aspect of the right lobe of the liver with the largest measuring approximately 2 cm. The liver measures 14 cm in long axis. The bile ducts are not dilated. The common duct is 2 mm. The gallbladder appears normal without evidence of gallstones or wall thickening. The pancreas is normal. The aorta and vena cava are normal. The right kidney measures 11.3 x 5.2 x 5.3 cm. No evidence of hydronephrosis or calculi. There is some increased echogenicity to the renal pyramids. There is no ascites. Negative Estevez's sign. IMPRESSION: 1. There are echogenic nodules in the right lobe of the liver medially. These were not visualized on the previous CT scan in July 2012. I would recommend followup with either [address] with liver protocol or MRI of the abdomen with Eovist contrast utilizing liver protocol. 2. Mild echogenicity of the renal pyramids. This can be seen with medullary sponge kidney. Clinical correlation. Dictated by: Dictated on workstation # [id number]
== END ==
LOC: RAD 08:58
PROVIDERS: ATTEND Family Medicine
DX: K76.89 Other specified diseases of liver (principal)
CPT/HCPCS: 76705

== ENCOUNTER → 2021-05-18 | Outpatient (CLI) | payer BC ==
[~2021-05-18] MED LIST changes: +GADOTERATE 0.5 MMOL/ML (CLARISCAN) 15 ML VIAL IV ONE
--- NOTE | 2021-05-18 09:11 | Diagnostic Imaging Report ---
PROCEDURE: MR imaging abdomen with and without contrast. TECHNIQUE: Multiplanar, multisequence MR imaging of the abdomen was performed with and without contrast. INDICATION: Abdominal pain. Evaluate liver lesions seen on prior ultrasound. COMPARISON: 05/03/2021, 07/10/2012. FINDINGS: The liver is normal in size and intrinsic signal. There are no focal liver lesions. The in and opposed phased images demonstrate fatty infiltration along the falciform ligament. There is no intrahepatic biliary dilatation. The spleen is not enlarged. The portal vein is patent. The pancreas demonstrates normal T1 bright intrinsic signal. There are no focal masses. The pancreatic duct is not dilated. No retroperitoneal inflammation or fluid collection is seen. The kidneys and the adrenal glands are unremarkable. The right kidney measures 10.2 cm. The left kidney measures 10.8 cm. There is no hydronephrosis on either side. No focal renal masses are seen. There is no ascites. No bowel obstruction is seen. There is no adenopathy. The included lung bases demonstrate no large focal lesions. There are no pleural or pericardial effusions. The heart size is within normal limits. 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 These represent the echogenic areas in the liver seen on the prior ultrasound. No suspicious focal hepatic lesions are identified. No further followup is recommended regarding these findings. Dictated by: Dictated on workstation # [id number]
== END ==
LOC: RAD 07:15
PROVIDERS: ATTEND Family Medicine
DX: K76.9 Liver disease, unspecified (principal)
CPT/HCPCS: 74183

== ENCOUNTER 2021-07-15 13:02 | Emergency (ER) | payer BC ==
[~2021-07-15] VITALS: Ht 165 cm; Wt 71.0 kg
[~2021-07-15 13:02] MED LIST changes: -GADOTERATE 0.5 MMOL/ML (CLARISCAN) 15 ML VIAL IV ONE
[2021-07-15] MEDS ORDERED: LACTATED RINGERS 1,000 ML IV SCH (13:30)
[2021-07-15] MEDS ORDERED: fentaNYL INJ 100 MCG/2 ML AMP IVP ONE (13:30)
[2021-07-15] MEDS ORDERED: ONDANSETRON 4 MG/2 ML (SDV) Z0FRAN IVP ONE (13:30)
--- NOTE | 2021-07-15 13:32 | ED Abdominal Pain ---
General Chief Complaint: Abdominal/GI Problems Stated Complaint: ABD PAIN,N/V Source of Information: Patient Exam Limitations: No Limitations History of Present Illness Date Seen by Provider: Jul 15, 2021 Time Seen by Provider: 13:31 Initial Comments to ER by private vehicle with reports of right upper quadrant abdominal pain that began this morning. She had some yogurt at about 930. No fevers or chills she does have nausea. She has had this pain intermittently for a few years and told it might be her gallbladder but had a negative gallbladder ultrasound. No fevers or chills. Timing/Duration: 1-2 Days Severity/Quality: Cramping Location: RUQ Radiation: No Radiation Activities at Onset: None Associated Symptoms: Nausea/Vomiting Allergies and Home Medications Allergies Coded Allergies: sumatriptan succinate (Verified Allergy, Unknown, 12/16/13) Worsening headache ketorolac (Verified Adverse Reaction, Mild, made migraine worse, 12/27/17) sumatriptan (Verified Adverse Reaction, Mild, WORSENING HEADACHE, 03/01/20) Worsening headache Patient Home Medication List Home Medication List Reviewed: Yes Acetazolamide (Acetazolamide ER) 500 Mg Capsule.er, 1,000 MG PO DAILY, (Reported) Entered as Reported by: AL APPIAH on 12/17/19 0832 Docusate Sodium (Colace) 100 Mg Capsule, 100 MG PO BID Prescribed by: KELLEE SYED on 12/19/19 1226 Levothyroxine Sodium (Levothyroxine Sodium) 50 Mcg Tablet, 50 MCG PO DAILY, (Reported) Entered as Reported by: AL APPIAH on 12/17/19 0953 Lisdexamfetamine Dimesylate (Vyvanse) 30 Mg Capsule, 30 MG PO DAILY, (Reported) Entered as Reported by: AL APPIAH on 12/17/19 0953 Naproxen Sodium (Anaprox Ds) 550 Mg Tablet, 550 MG PO BID Prescribed by: KELLEE SYED on 12/19/19 1226 Ondansetron (Ondansetron Odt) 8 Mg Tab.rapdis, 8 MG PO Q6H PRN for NAUSE A/VOMITING Prescribed by: TERRELL HOLT on 07/15/21 1453 Oxycodone HCl/Acetaminophen (Percocet 5-325 mg Tablet) 1 Each Tablet, 1 TAB PO Q4H Prescribed by: KELLEE SYED on 12/19/19 1226 Oxycodone HCl/Acetaminophen (Percocet 5-325 mg Tablet) 1 Each Tablet, 1 TAB PO Q4H Prescribed by: KELLEE SYED on 12/19/19 1228 Oxycodone HCl/Acetaminophen (Percocet 5-325 mg Tablet) 1 Each Tablet, 1 TAB PO Q4H Prescribed by: TERRELL HOLT on 07/15/21 1454 Sucralfate (Carafate) 1 Gm Tablet, 1 GM PO BID PRN for HEARTBURN, (Reported) Entered as Reported by: AL APPIAH on 12/17/19 0953 Topiramate (Topiramate ER) 50 Mg Cap.spr.24, 50 MG PO DAILY, (Reported) Entered as Reported by: AL APPIAH on 12/17/19 0953 Venlafaxine HCl (Venlafaxine HCl ER) 75 Mg Tab.er.24, 75 MG PO DAILY, (Reported) Entered as Reported by: AL APPIAH on 12/17/19 0953 Review of Systems Review of Systems Constitutional: see HPI EENTM: No Symptoms Reported Respiratory: No Symptoms Reported Cardiovascular: No Symptoms Reported Gastrointestinal: See HPI, Abdominal Pain Genitourinary: No Symptoms Reported Musculoskeletal: no symptoms reported Skin: no symptoms reported Psychiatric/Neurological: No Symptoms Reported Endocrine: No Symptoms Reported Hematologic/Lymphatic: No Symptoms Reported Past Uxgfzgc-Spvwar-Awwdzd Hx Immunizations Up To Date Tetanus Booster (TDap): Less than 5yrs PED Vaccines UTD: No Seasonal Allergies Seasonal Allergies: Yes Past Medical History Surgeries: Yes (ovarian cyst removal, hernia sx, hip sx) Adenoidectomy, Appendectomy, Tonsillectomy Respiratory: No Currently Using CPAP: No Currently Using BIPAP: No Cardiac: No Neurological: Yes (pseudotumor cerebri) Headaches /Migraines Reproductive Disorders: Yes (left adnexa cyst) Female Reproductive Disorders: Denies Sexually Transmitted Disease: No HIV/AIDS: No Genitourinary: No Gastrointestinal: Yes Abdominal Hernia, Hiatal Hernia Musculoskeletal: Yes Chronic Back Pain Endocrine: Yes HEENT: No Loss of Vision: Denies Hearing Impairment: Denies Cancer: No Psychosocial: No Integumentary: No Blood Disorders: No Adverse Reaction/Blood Tranf: No Family Medical History Cardiac arrhythmia 19 MOTHER Diabetes mellitus 19 FATHER Hypertension 19 MOTHER Myocardial infarction 19 MOTHER Thyroid disease 19 FATHER 19 MOTHER Physical Exam Vital Signs Capillary Refill : Height/Weight/BMI Height: 5'5.00" Weight: 230lbs. 0.0oz. 104.937792vq; 36.35 BMI Method:Stated General Appearance: WD/WN, no apparent distress HEENT: PERRL/EOMI, normal ENT inspection Neck: non-tender, full range of motion Respiratory: no respiratory distress, no accessory muscle use Cardiovascular: regular rate, rhythm Gastrointestinal: normal bowel sounds, soft, tenderness Extremities: normal range of motion, non-tender Neurologic/Psychiatric: alert, normal mood/affect, oriented x 3 Skin: normal color, warm/dry Progress/Results/Core Measures Results/Orders Lab Results Laboratory Tests Test 07/15/21 13:25 07/15/21 13:35 Range/Units Urine Color YELLOW Urine Clarity CLEAR Urine pH 7.0 5-9 Urine Specific [place] <=1.005 1.016-1.022 Urine Protein NEGATIVE NEGATIVE Urine Glucose (UA) NEGATIVE NEGATIVE Urine Ketones NEGATIVE NEGATIVE Urine Nitrite NEGATIVE NEGATIVE Urine Bilirubin NEGATIVE NEGATIVE Urine Urobilinogen 0.2 < = 1.0 MG/DL Urine Leukocyte Esterase NEGATIVE NEGATIVE Urine RBC (Auto) NEGATIVE NEGATIVE Urine RBC NONE /HPF Urine WBC NONE /HPF Urine Squamous Epithelial Cells 0-2 /HPF Urine Renal Epithelial Cells NONE /HPF Urine Crystals NONE /LPF Urine Bacteria NEGATIVE /HPF Urine Casts NONE /LPF Urine Mucus NEGATIVE /LPF Urine Culture Indicated NO White Blood Count 7.8 4.3-11.0 10^3/uL Red Blood Count 4.90 3.80-5.11 10^6/uL Hemoglobin 14.7 11.5-16.0 g/dL Hematocrit 43 35-52 % Mean Corpuscular Volume 89 80-99 fL Mean Corpuscular Hemoglobin 30 25-34 pg Mean Corpuscular Hemoglobin Concent 34 32-36 g/dL Red Cell Distribution Width 12.4 10.0-14.5 % Platelet Count 322 130-400 10^3/uL Mean Platelet Volume 9.7 9.0-12.2 fL Immature Granulocyte % (Auto) 0 % Neutrophils (%) (Auto) 65 42-75 % Lymphocytes (%) (Auto) 27 12-44 % Monocytes (%) (Auto) 7 0-12 % Eosinophils (%) (Auto) 1 0-10 % Basophils (%) (Auto) 0 0-10 % Neutrophils # (Auto) 5.1 1.8-7.8 10^3/uL Lymphocytes # (Auto) 2.1 1.0-4.0 10^3/uL Monocytes # (Auto) 0.5 0.0-1.0 10^3/uL Eosinophils # (Auto) 0.1 0.0-0.3 10^3/uL Basophils # (Auto) 0.0 0.0-0.1 10^3/uL Immature Granulocyte # (Auto) 0.0 0.0-0.1 10^3/uL Sodium Level 140 135-145 MMOL/L Potassium Level 3.8 3.6-5.0 MMOL/L Chloride Level 108 H 98-107 MMOL/L Carbon Dioxide Level 20 L 21-32 MMOL/L Anion Gap 12 5-14 MMOL/L Blood Urea Nitrogen 5 L 7-18 MG/DL Creatinine 0.77 0.60-1.30 MG/DL Estimat Glomerular Filtration Rate 105 BUN/Creatinine Ratio 6 Glucose Level 96 70-105 MG/DL Calcium Level 8.9 8.5-10.1 MG/DL Corrected Calcium 8.8 8.5-10.1 MG/DL Total Bilirubin 0.5 0.1-1.0 MG/DL Aspartate Amino Transf (AST/SGOT) 24 5-34 U/L Alanine Aminotransferase (ALT/SGPT) 45 0-55 U/L Alkaline Phosphatase 53 40-136 U/L Total Protein 7.1 6.4-8.2 GM/DL Albumin 4.1 3.2-4.5 GM/DL Lipase 249 H 8-78 U/L Serum Test, Qualitative NEGATIVE NEGATIVE My Orders Orders - TERRELL HOLT [employer] Lipase (07/15/21 13:23) Hcg,Qualitative Serum (07/15/21 13:23) Ua Culture If Indicated (07/15/21 13:23) Cbc With Automated Diff (07/15/21 13:23) Comprehensive Metabolic Panel (07/15/21 13:23) Us Gallbladder [id number] (07/15/21 13:30) Fentanyl Inj (Sublimaze Injection) (07/15/21 13:30) Lactated Ringers (Lr 1000 Ml Iv Solution (07/15/21 13:30) Ondansetron Injection (Zofran Injectio (07/15/21 13:30) Ct Abdomen/Pelvis W (07/15/21 14:19) Iohexol Injection (Omnipaque 350 Mg/Ml 1 (07/15/21 14:45) Received Contrast (Hold Metformin- Contr (07/15/21 14:45) Sodium Chloride Flush (Catheter Flush Sy (07/15/21 14:45) Ns (Ivpb) (Sodium Chloride 0.9% Ivpb Bag (07/15/21 14:45) Hydromorphone Injection (Dilaudid Inject (07/15/21 15:00) Medications Given in ED Current Medications Medications Dose Ordered Sig/Phil Route Start Time Stop Time Status Last Admin Dose Admin Fentanyl Citrate 50 mcg ONCE ONCE IVP 07/15/21 13:30 07/15/21 13:32 DC 07/15/21 14:07 50 MCG Iohexol 80 ml ONCE ONCE IV 07/15/21 14:45 07/15/21 14:46 DC 07/15/21 14:34 80 ML Ondansetron HCl 8 mg ONCE ONCE IVP 07/15/21 13:30 07/15/21 13:32 DC 07/15/21 14:07 8 MG Sodium Chloride 10 ml NEEDED PRN IV 07/15/21 14:45 07/15/21 14:34 10 ML Sodium Chloride 100 ml ONCE ONCE IV 07/15/21 14:45 07/15/21 14:46 DC 07/15/21 14:34 80 ML Departure Communication (Admissions) Family Conversation NAME: ROX YANG [facility] REC#: [id number] PT STATUS: REG ER : 1990 PHYSICIAN: TERRELL HOLT APRN ADMIT DATE: 07/15/21/ER Draft Date of Exam:07/15/21 CT ABDOMEN/PELVIS W PROCEDURE: CT abdomen and pelvis with contrast. TECHNIQUE: Multiple contiguous axial images were obtained through the abdomen and pelvis after administration of intravenous contrast. Auto Exposure Controls were utilized during the CT exam to meet ALARA standards for radiation dose reduction. All CT scans use one or more of the following dose optimizing techniques: automated exposure control, MA and/or KvP adjustment based on patient size and exam type or iterative reconstruction. INDICATION: Epigastric pain. COMPARISON: Abdominopelvic CT 07/10/2012 and correlated with an ultrasound performed earlier this same day. FINDINGS: There are no opaque urinary tract calculi. There is no hydroureteronephrosis. The urinary bladder appears normal. There is a follicular cyst in the left ovary, likely involuting follicle, as a physiologic finding. No features suggestive of adnexal torsion. The appendix surgically absent. There is no diverticulitis. There is no small or large bowel obstruction. No perienteric or pericolonic edema. Hypodensity in the left lobe peripheral to the falciform ligament correlates with stable hyperechoic foci at ultrasound and is consistent with focal fatty infiltration and is also congruent with the findings at a MRI performed for its evaluation 05/18/2021. No acute or suspicious hepatobiliary abnormality. The spleen, adrenals and pancreas are unremarkable. There is no mesenteric or retroperitoneal adenopathy. There is no ascites, abscess, hematoma or acute fluid collection. There is no perienteric or pericolonic edema. There is no focal inflammatory process. The lung bases and osseous structures are unremarkable. IMPRESSION: No acute or suspicious abnormality identified. Dictated on workstation # [id number] Dict: 07/15/21 1438 Trans: 07/15/21 1444 [facility] [id number] Interpreted by: NEYMAR CORONA Electronically signed by: NAME: ROX YANG [facility] REC#: [id number] PT STATUS: REG ER : 1990 PHYSICIAN: TERRELL HOLT APRN ADMIT DATE: 07/15/21/ER Draft Date of Exam:07/15/21 US GALLBLADDER [id number] PROCEDURE: US Gallbladder. TECHNIQUE: Multiple real-time grayscale images were obtained over the right upper quadrant in various projections. INDICATION: RUQ pain. COMPARISON: Exam is compared with ultrasound 05/03/2021 as well as correlated with an abdominal MRI of 05/18/2021. FINDINGS: A discrete echogenic focus without mass effect in the left hepatic lobe near the falciform ligament consistent with focal fatty infiltration is a redemonstrated finding. No hypoechoic or suspicious focal hepatic abnormality. The gallbladder appeared normal. No stone. No sludge. No bile duct dilatation. The aorta and cava appeared normal in caliber and unremarkable where visualized. The unobstructed right kidney is normal in size, cortical thickness, and echotexture. The portal vein shows a patent normal hepatopetal directional flow. Visualized pancreas is normal. IMPRESSION: Focal left hepatic lobe fatty infiltration along the falciform ligament, stable and incidental. No acute hepatobiliary abnormality or ascites. Dictated on workstation # [id number] Dict: 07/15/21 1403 Trans: 07/15/21 1409 [id number] Interpreted by: NEYMAR CORONA Electronically signed by: Impression Primary Impression: Pancreatitis Disposition: HOME, SELF-CARE Condition: Stable Departure-Patient Inst. Decision time for Depature: 14:52 Referrals: ALEXANDRA DUFFY MD (PCP/Family) Primary Care Physician Patient Instructions: Pancreatitis Add. Discharge Instructions: 1. Follow-up with Dr. Duffy on Sunday. Take the pain medication and nausea medication as directed. Return to ER for any concerns. Clear liquids for the next 24 to 48 hours. All discharge instructions reviewed with patient and/or family. Voiced understanding. Scripts Ondansetron (Ondansetron Odt) 8 Mg Tab.rapdis 8 MG PO Q6H PRN for NAUSEA/VOMITING, #20 TAB Prov: TERRELL HOLT APRN 07/15/21 Oxycodone HCl/Acetaminophen (Percocet 5-325 mg Tablet) 1 Each Tablet 1 TAB PO Q4H for PAIN-MODERATE MDD 6 TABS for 7 Days, #20 TAB Prov: TERRELL HOLT APRN 07/15/21 Copy Copies To 1: ALEXANDRA DUFFY MD, PETER J APRN Jul 15, 2021 13:32
[2021-07-15 13:35] LABS: BILIRUBIN,URINE NEGATIVE (NEGATIVE); CLARITY,URINE CLEAR; COLOR,URINE YELLOW; GLUCOSE, URINE (UA) NEGATIVE (NEGATIVE); KETONES,URINE NEGATIVE (NEGATIVE); LEUKOCYTE ESTERASE ,URINE NEGATIVE (NEGATIVE); NITRITE,URINE NEGATIVE (NEGATIVE); PROTEIN,URINE NEGATIVE (NEGATIVE)
[2021-07-15 13:42] LABS: BACTERIA,URINE NEGATIVE /HPF; SQUAMOUS EPITHELIAL CELL,UR 0-2 /HPF
[2021-07-15 13:44] LABS: BASOPHILS % (AUTO) 0 % (0-10); EOSINOPHILS # (AUTO) 0.1 10^3/uL (0.0-0.3); EOSINOPHILS % (AUTO) 1 % (0-10); HEMATOCRIT 43 % (35-52); HEMOGLOBIN 14.7 g/dL (11.5-16.0); LYMPHOCYTES # (AUTO) 2.1 10^3/uL (1.0-4.0); LYMPHOCYTES % (AUTO) 27 % (12-44); MEAN CORPUSCULAR HEMOGLOBIN 30 pg (25-34); MEAN CORPUSCULAR HGB CONC 34 g/dL (32-36); MEAN CORPUSCULAR VOLUME 89 fL (80-99); MEAN PLATELET VOLUME 9.7 fL (9.0-12.2); MONOCYTES # (AUTO) 0.5 10^3/uL (0.0-1.0); MONOCYTES % (AUTO) 7 % (0-12); NEUTROPHILS # (AUTO) 5.1 10^3/uL (1.8-7.8); NEUTROPHILS % (AUTO) 65 % (42-75); PLATELET COUNT 322 10^3/uL (130-400); WHITE BLOOD COUNT 7.8 10^3/uL (4.3-11.0)
[2021-07-15 13:59] LABS: ALBUMIN 4.1 GM/DL (3.2-4.5); POTASSIUM 3.8 MMOL/L (3.6-5.0)
[2021-07-15 14:00] LABS: CALCIUM 8.9 MG/DL (8.5-10.1)
[2021-07-15 14:01] LABS: TOTAL PROTEIN 7.1 GM/DL (6.4-8.2)
[2021-07-15 14:03] LABS: BILIRUBIN,TOTAL 0.5 MG/DL (0.1-1.0)
[2021-07-15 14:05] LABS: CREATININE SERUM 0.77 MG/DL (0.60-1.30)
--- NOTE | 2021-07-15 14:09 | Diagnostic Imaging Report ---
PROCEDURE: US Gallbladder. TECHNIQUE: Multiple real-time grayscale images were obtained over the right upper quadrant in various projections. INDICATION: RUQ pain. COMPARISON: Exam is compared with ultrasound 05/03/2021 as well as correlated with an abdominal MRI of 05/18/2021. FINDINGS: A discrete echogenic focus without mass effect in the left hepatic lobe near the falciform ligament consistent with focal fatty infiltration is a redemonstrated finding. No hypoechoic or suspicious focal hepatic abnormality. The gallbladder appeared normal. No stone. No sludge. No bile duct dilatation. The aorta and cava appeared normal in caliber and unremarkable where visualized. The unobstructed right kidney is normal in size, cortical thickness, and echotexture. The portal vein shows a patent normal hepatopetal directional flow. Visualized pancreas is normal. IMPRESSION: Focal left hepatic lobe fatty infiltration along the falciform ligament, stable and incidental. No acute hepatobiliary abnormality or ascites. Dictated by: Dictated on workstation # [id number]
[2021-07-15] MEDS ORDERED: NS 100 ML (IVPB) BAG IV ONE (14:45)
[2021-07-15] MEDS ORDERED: HOLD METFORMIN - RECEIVED CONTRAST 20 ML VIAL IV SCH (14:45)
[2021-07-15] MEDS ORDERED: IOHEXOL 350 MG/ML 100 ML (OMNIPAQUE 350) VIAL IV ONE (14:45)
[2021-07-15] MEDS ORDERED: CATHETER FLUSH 10 ML SYR IV PRN (14:45)
--- NOTE | 2021-07-15 14:45 | Diagnostic Imaging Report ---
PROCEDURE: CT abdomen and pelvis with contrast. TECHNIQUE: Multiple contiguous axial images were obtained through the abdomen and pelvis after administration of intravenous contrast. Auto Exposure Controls were utilized during the CT exam to meet ALARA standards for radiation dose reduction. All CT scans use one or more of the following dose optimizing techniques: automated exposure control, MA and/or KvP adjustment based on patient size and exam type or iterative reconstruction. INDICATION: Epigastric pain. COMPARISON: Abdominopelvic CT 07/10/2012 and correlated with an ultrasound performed earlier this same day. FINDINGS: There are no opaque urinary tract calculi. There is no hydroureteronephrosis. The urinary bladder appears normal. There is a follicular cyst in the left ovary, likely involuting follicle, as a physiologic finding. No features suggestive of adnexal torsion. The appendix surgically absent. There is no diverticulitis. There is no small or large bowel obstruction. No perienteric or pericolonic edema. Hypodensity in the left lobe peripheral to the falciform ligament correlates with stable hyperechoic foci at ultrasound and is consistent with focal fatty infiltration and is also congruent with the findings at a MRI performed for its evaluation 05/18/2021. No acute or suspicious hepatobiliary abnormality. The spleen, adrenals and pancreas are unremarkable. There is no mesenteric or retroperitoneal adenopathy. There is no ascites, abscess, hematoma or acute fluid collection. There is no perienteric or pericolonic edema. There is no focal inflammatory process. The lung bases and osseous structures are unremarkable. IMPRESSION: No acute or suspicious abnormality identified. Dictated by: Dictated on workstation # [id number]
[2021-07-15] MEDS ORDERED: ONDA8TAB13 PO (14:53)
[2021-07-15] MEDS ORDERED: OXYC1TAB87 PO (14:53)
[2021-07-15] MEDS ORDERED: HYDROmorphone 2 MG/ML VIAL (DILAUDID) IV ONE (15:00)
[2021-07-15 15:36] VITALS: BP 129/74
== END 2021-07-15 15:38 | disposition home or self-care (01) ==
LOC: EDUNIT# 13:02 → ER 13:05
DX: K85.90 Acute pancreatitis without necrosis or infection, unspecified (principal); G89.29 Other chronic pain; M54.9 Dorsalgia, unspecified; Z79.891 Long term (current) use of opiate analgesic
CPT/HCPCS: 36415; 74177; 76705; 80053; 81000; 83690; 84703; 85025

== ENCOUNTER → 2022-08-31 | Outpatient (CLI) | payer BC ==
[~2022-08-31] MED LIST changes: +ONDA8TAB13 PO
--- NOTE | 2022-08-31 08:55 | Diagnostic Imaging Report ---
TECHNIQUE: Multiplanar and multisequence MRI of the thoracic spine is performed without contrast. REASON FOR EXAM: Mid back pain. Chronic. COMPARISON: 06/28/2018. FINDINGS: No acute fracture or dislocation in the thoracic spine. The vertebral body heights and disc spaces are well-maintained. No suspicious focal osseous lesions. The bone marrow signal is normal. Alignment is anatomic. The intrinsic signal within the thoracic spinal cord is normal. No evidence of cord expansion. No epidural collections. No significant degenerative changes in the thoracic spine. No large disc bulges. No significant spinal canal or foraminal stenosis. The paraspinal soft tissues are unremarkable. The included lungs are clear. IMPRESSION: 1. No acute fracture or dislocation in the thoracic spine. 2. No significant degenerative changes in the thoracic spine. No disc bulges. Dictated by: Dictated on workstation # [id number]
== END ==
LOC: RAD 07:47
PROVIDERS: ATTEND Pain Medicine Interventional Pain Medicine
DX: M54.6 Pain in thoracic spine (principal); G89.29 Other chronic pain
CPT/HCPCS: 72146

== ENCOUNTER → 2022-12-22 | Outpatient (CLI) | payer BC ==
[~2022-12-22] MED LIST changes: +CATHETER FLUSH 10 ML SYR IVP PRN
--- NOTE | 2022-12-22 09:51 | Diagnostic Imaging Report ---
PROCEDURE: US Gallbladder. TECHNIQUE: Multiple real-time grayscale images were obtained over the right upper quadrant in various projections. INDICATION: Right upper quadrant pain. FINDINGS: The gallbladder is normal. No intra or extrahepatic bile duct dilatation. No sludge or stone. The visible portions of the pancreas are normal. The liver parenchyma nonfocal and nonacute. There is no ascites. The portal vein patent and showed normal hepatopetal directional flow. The unobstructed right kidney at 10.5 cm normal. There is no ascites or acute fluid collection. IMPRESSION: Normal right upper quadrant ultrasound. Dictated by: Dictated on workstation # [id number]
--- NOTE | 2022-12-22 11:52 | Diagnostic Imaging Report ---
INDICATION: Right upper quadrant pain. Patient was a ministered 5.4 mCi technetium 99m Choletec intravenously and imaging over the abdomen was performed. After 45 minutes patient ingested 8 ounces of ensuring the gallbladder ejection fraction was calculated. There is homogeneous uptake of activity by the liver with prompt excretion of activity into the gallbladder and common duct. There is normal passage of activity into the small bowel. Gallbladder ejection fraction is abnormally low at 20%. Normal values are 35% or greater. IMPRESSION: 1. Patent cystic duct and common bile duct. 2. Low gallbladder ejection fraction of 20%. Dictated by: Dictated on workstation # [id number]
== END ==
LOC: RAD 09:00
PROVIDERS: ATTEND Surgery
DX: K81.9 Cholecystitis, unspecified (principal); R10.11 Right upper quadrant pain
CPT/HCPCS: 76705; 78227; A9537

== ENCOUNTER 2022-12-27 05:41 | Outpatient (CLI) | payer BC ==
[~2022-12-27] VITALS: Ht 165.1 cm; Wt 65.9 kg
[~2022-12-27 05:41] MED LIST changes: -CATHETER FLUSH 10 ML SYR IVP PRN
[2022-12-27] MEDS ORDERED: LISD30CA3 PO (13:30)
[2022-12-27] MEDS ORDERED: VNL37.5T PO (13:30)
[2022-12-27] MEDS ORDERED: CYCL5TAB PO (13:30)
[2022-12-27] MEDS ORDERED: ACYC400T21 PO (13:30)
[2022-12-27] MEDS ORDERED: PREG75CA75 PO (13:30)
[2022-12-28] MEDS ORDERED: HYDR-3817 PO (12:24)
== END 2022-12-27 13:52 | disposition home or self-care (01) ==
LOC: PREOP 05:41
PROVIDERS: ATTEND Surgery
DX: Z01.818 Encounter for other preprocedural examination (principal)

== ENCOUNTER 2022-12-28 12:10 | Day surgery (SDC) | payer BC ==
[2022-12-28] VITALS (11 sets, daily range): BP systolic 110–141; BP diastolic 67–90
[~2022-12-28 12:10] MED LIST changes: +ACYC400T21 PO; +CYCL5TAB PO; +PREG75CA75 PO; +VNL37.5T PO
--- NOTE | 2022-12-28 12:23 | Progress Note-Pre Operative ---
Pre-Operative Progress Note Date H&P Reviewed: Dec 28, 2022 Time H&P Reviewed: 12:20 History & Physical: H&P Reviewed, Patient Examed, No changes noted Pre-Operative Diagnosis: Symptomatic biliary dyskinesia GEORGETTE SANDOVAL APRN Dec 28, 2022 12:23
[2022-12-28] MEDS ORDERED: HYDR-3817 PO (12:24)
--- NOTE | 2022-12-28 12:25 | Discharge Inst-Surgical ---
D/C Lap Instructions-KIDO Reconcile Patient Problems Problems Reviewed?: Yes New, Converted, or Re-Newed RX: RX on Chart Follow Up Appt in 2 weeks Activity as tolerated No driving for 24 hours No driving while on pain medications Incentive Spirometry use every 2 hours while awake Regular Diet Symptoms to Report: Fever over 101 degree F, Nausea/Vomiting Infection Signs and Symptoms to report: Increased redness, Foul odor of wound, Increased drainage Bathing instructions: May shower Operative Area Clean/Dry; Keep incision clean/dry If any problems/questions: Contact your physician or go to Emergency Room GEORGETTE SANDOVAL APRN Dec 28, 2022 12:25
[2022-12-28] MEDS ORDERED: ACETAMINOPHEN 325 MG TABLET PO PRN (12:30)
[2022-12-28] MEDS ORDERED: HYDROcodone/APAP 5 MG/325 MG (LORTAB) TAB PO ONE (12:30)
[2022-12-28] MEDS ORDERED: ONDANSETRON 4 MG/2 ML (SDV) Z0FRAN IVP PRN ×2 (12:30→15:30)
[2022-12-28] MEDS ORDERED: morphine INJ 10 MG/ML 1ML (SYR OR VIAL) IVP PRN (12:30)
[2022-12-28] MEDS ORDERED: MIDAZOLAM 2 MG/2 ML (VERSED) VIAL IVP ONE (12:45)
[2022-12-28] MEDS ORDERED: ceFAZolin INJECTION 1,000 MG in NS (IVPB) 50 ML IV ONE (12:45)
[2022-12-28] MEDS ORDERED: BUP/EPI 0.5% 1:200,000 (SENSORCAINE) 30 ML VIAL ONE (12:51)
[2022-12-28 13:09] LABS: BASOPHILS # (AUTO) 0.1 10^3/uL (0.0-0.1); BASOPHILS % (AUTO) 1 % (0-10); EOSINOPHILS # (AUTO) 0.1 10^3/uL (0.0-0.3); EOSINOPHILS % (AUTO) 2 % (0-10); HEMATOCRIT 42 % (35-52); HEMOGLOBIN 13.8 g/dL (11.5-16.0); LYMPHOCYTES # (AUTO) 1.5 10^3/uL (1.0-4.0); LYMPHOCYTES % (AUTO) 22 % (12-44); MEAN CORPUSCULAR HEMOGLOBIN 31 pg (25-34); MEAN CORPUSCULAR HGB CONC 33 g/dL (32-36); MEAN CORPUSCULAR VOLUME 94 fL (80-99); MEAN PLATELET VOLUME 10.1 fL (9.0-12.2); MONOCYTES # (AUTO) 0.4 10^3/uL (0.0-1.0); MONOCYTES % (AUTO) 6 % (0-12); NEUTROPHILS # (AUTO) 4.6 10^3/uL (1.8-7.8); NEUTROPHILS % (AUTO) 69 % (42-75); PLATELET COUNT 271 10^3/uL (130-400); WHITE BLOOD COUNT 6.7 10^3/uL (4.3-11.0)
[2022-12-28] MEDS ORDERED: proPOfol 200 MG/20 ML (DIPRIVAN) VIAL IV ONE (13:53)
[2022-12-28] MEDS ORDERED: LIDOCAINE PF 2% 5 ML (XYLOCAINE) VIAL ONE (13:53)
[2022-12-28] MEDS ORDERED: ROCURONIUM 50 MG/5 ML (ZEMURON) VIAL IV ONE (13:53)
[2022-12-28] MEDS ORDERED: MIDAZOLAM 2 MG/2 ML (VERSED) VIAL ONE (13:54)
[2022-12-28] MEDS ORDERED: fentaNYL INJ 100 MCG/2 ML AMP ONE (13:54)
[2022-12-28] MEDS: LACTATED RINGERS 1,000 ML IV PRN ×2 (13:57→14:55)
[2022-12-28] MEDS ORDERED: BUP/EPI 0.5% 1:200,000 (SENSORCAINE) 30 ML VIAL INJ ONE (14:30)
[2022-12-28] MEDS ORDERED: NEOSTIGMINE (BLOXIVERZ ) 1 MG/1ML 10 ML VIAL ONE (14:56)
[2022-12-28] MEDS ORDERED: GLYCOPYRROLATE 0.2 MG/ML (ROBINUL) 2 ML VIAL ONE (14:56)
[2022-12-28] MEDS ORDERED: SEVOFLURANE (ULTANE) 15 ML INHAL SOLN ONE (15:00)
--- NOTE | 2022-12-28 15:05 | Progress Note-Post Operative ---
Post-Operative Progess Note Surgeon (s)/Field Control Inspector (s) Surgeon CHELO DAVIS MD Field Control Inspector: ameya peralta EXECUTIVE COACH Pre-Operative Diagnosis Symptomatic biliary dyskinesia Post-Operative Diagnosis same Procedure & Operative Findings Date of Procedure 12/28/22 Procedure Performed/Findings laparoscopic cholecystectomy Anesthesia Type get Estimated Blood Loss Estimated blood loss (mL): minimal Specimens/Packing Specimens Removed gallbladder CHELO DAVIS MD Dec 28, 2022 15:05
[2022-12-28] MEDS ORDERED: ONDANSETRON 4 MG/2 ML (SDV) Z0FRAN ONE (15:12)
--- NOTE | 2022-12-28 15:18 | Anesthesia-General Post-Op ---
General Patient Condition Mental Status/LOC: Same as Preop Cardiovascular: Satisfactory Nausea/Vomiting: Absent Respiratory: Satisfactory Pain: Controlled Complications: Absent Post Op Complications Complications None Follow Up Care/Instructions Patient Instructions None needed. Anesthesia/Patient Condition Patient Condition Patient is doing well, no complaints, stable vital signs, no apparent adverse anesthesia problems. No complications reported per nursing. HAL MATIAS CRNA Dec 28, 2022 15:18
[2022-12-28] MEDS ORDERED: HYDROmorphone 2 MG/ML VIAL (DILAUDID) IV ONE (15:30)
[2022-12-28] MEDS ORDERED: fentaNYL INJ 100 MCG/2 ML AMP IVP ONE (15:30)
[2022-12-28] MEDS ORDERED: HYDROmorphone 2 MG/ML VIAL (DILAUDID) ONE (15:32)
[2022-12-28] MEDS ORDERED: HYDROcodone/APAP 5 MG/325 MG (LORTAB) TAB ONE (16:33)
--- NOTE | 2022-12-29 00:16 | OPERATIVE REPORT ---
DATE OF SERVICE: 12/28/2022 ATTENDING TECHNICAL SOLUTION ARCHITECT: Martha Oneill APRN. PREOPERATIVE DIAGNOSIS: Symptomatic biliary dyskinesia. POSTOPERATIVE DIAGNOSES: Symptomatic biliary dyskinesia. PROCEDURE: Laparoscopic cholecystectomy. SURGEON: Chelo Davis MD SYSTEMS ANALYST ENGINEER: Williams Mello APRN ANESTHESIA: General endotracheal. ESTIMATED BLOOD LOSS: Minimal. FINDINGS: Distended gallbladder, no gallbladder wall thickening, no gallstones. DISPOSITION: The patient tolerated the procedure well. INDICATIONS: The patient is a 32-year-old female who has had a two-year history of abdominal distention, right upper abdominal quadrant pain with radiation towards the back as well as intermittent nausea and vomiting usually after meals. She states that this was initially very mild; however, in the past several months has become much more frequent as well as severe in nature. An ultrasound was performed, which did not show any gallstones and this was followed by a HIDA scan, which showed a low ejection fraction of 14%, consistent with symptomatic biliary dyskinesia. DESCRIPTION OF PROCEDURE: The patient was brought to the operating room, laid supine on the table. After adequate IV pain and sedative medications and general endotracheal intubation, the abdomen was prepped and draped in standard surgical fashion. A 0.5% Marcaine with epinephrine was used to anesthetize the overlying skin in the left upper abdominal quadrant and a transverse skin incision made using a #15 blade. An 0 silk suture was applied to the medial aspect of the incision for retraction and a Veress needle inserted with a low opening pressure of 0 mmHg and the abdomen was then insufflated to 15 mmHg pressure. The Veress needle removed and a 5 mm XL trocar placed followed by a 5 mm 45-degree angle laparoscope visualized the peritoneal cavity. A 4-quadrant abdominal exploration was performed. There were some omental adhesions towards the abdominal wall just below the level of the umbilicus. Slightly distended gallbladder, no gallbladder wall thickening. Under direct visualization, we then proceeded to place a supraumbilical 10 mm port after the skin and peritoneal lining were anesthetized using 0.5% Marcaine with epinephrine and a transverse skin incision made using a #15 blade. In a similar manner, a right upper abdominal quadrant 5 mm port was placed. The patient was then placed in reverse Trendelenburg position as well as planed right side up, left side down. The fundus of the gallbladder was then retracted anteriorly and superiorly. The hepatoduodenal ligament was then dissected using blunt dissection as well as electrocautery on the hook instrument as well as a [place] dissector. The entire critical view of safety was identified including the triangle of Calot as well as the cystic duct and artery as the only 2 structures going into the gallbladder. A timeout was then taken and the cystic duct and artery were then clipped proximally and distally and cut with EndoShears. The gallbladder was then dissected off of the liver bed using cautery on hook instrument with visualization of good hemostasis as well as no leaking ducts of Luschka. The gallbladder was removed through the 10 mm port site using an EndoCatch bag. The 10 mm port site fascia and peritoneum were then closed under direct visualization using a Shar-Rosalina device and an 0 Vicryl suture. The abdomen was desufflated and the remaining ports were removed. All skin incisions were closed using 4-0 Monocryl running subcuticular sutures. Wounds were then cleaned and covered with Dermabond. The patient tolerated the procedure well. We will start IV normal pain medication as well as a clear liquid diet. Once she is tolerating clears, has good pain control with oral pain medications, ambulating well, we will discharge her home where she will be instructed to do no heavy lifting or exertion for the next 2 weeks. Job ID: [id number] DocumentID: [id number] Dictated Date: 12/28/2022 15:11:54 Rayon Tester Date: 12/29/2022 00:13:00 Dictated By: CHELO DAVIS MD
== END 2022-12-28 18:20 | disposition home or self-care (01) ==
LOC: SDC 12:10
PROVIDERS: ATTEND Surgery
DX: K82.8 Other specified diseases of gallbladder (principal); K81.1 Chronic cholecystitis; F17.290 Nicotine dependence, other tobacco product, uncomplicated; Z28.310 Unvaccinated for COVID-19
CPT/HCPCS: 36415; 85025; 87081; 88304

== ENCOUNTER → 2023-03-28 | Outpatient (CLI) | payer BC ==
[~2023-03-28] MED LIST changes: +GADOTERATE 0.5 MMOL/ML (CLARISCAN) 15 ML VIAL IV ONE; +HYDR-3817 PO; -PREG75CA75 PO; +PREG75CA76 PO
--- NOTE | 2023-03-28 11:04 | Diagnostic Imaging Report ---
CLINICAL INDICATIONS: Patient states rule out multiple sclerosis. Patient is having a variety of multiple sclerosis symptoms going on. EXAM: MRI of the cervical spine performed without and with 14 cc of Clariscan IV contrast. Multiplanar/multisequence imaging was obtained. COMPARISON: MRI of the cervical spine without contrast dated 04/06/2013. FINDINGS: There is no acute cervical spine fracture or dislocation. There is no abnormal IV contrast enhancement. There is no abnormal cervical cord signal. There is localized deformity of the cervical cord seen at C6-C7 due to disk disease. There are no abnormal Modic degenerative signal changes. Limited visualization of posterior fossa is unremarkable. There is no significant paraspinal soft tissue abnormality. C1-C2: Unremarkable. C2-C3: Unremarkable. C3-C4: Unremarkable. C4-C5: Unremarkable. C5-C6: There is a small left paracentral disk bulge. There is mild left facet arthropathy. There is mild left neuroforaminal narrowing which has slightly progressed. There is mild central canal stenosis which has progressed. C6-C7: There is a small to moderate sized left paracentral/left subarticular disk extrusion/herniation with moderate central canal stenosis which has progressed. There is no significant right neuroforaminal narrowing. There is mild to moderate left neuroforaminal narrowing which has progressed. C7-T1: Unremarkable. IMPRESSION: 1: There is interval development of a C6-C7 left paracentral/left subarticular disk herniation which causes moderate central canal stenosis and moderate left neuroforaminal narrowing. 2: There is interval progression of a small left paracentral disk bulge at the C5-C6 level with mild left neuroforaminal narrowing and mild central canal stenosis which has progressed. Dictated by: Dictated on workstation # [id number]
--- NOTE | 2023-03-28 11:20 | Diagnostic Imaging Report ---
CLINICAL INDICATION: Patient is having a variety of multiple sclerosis symptoms going on. Rule out multiple sclerosis. EXAM: MRI of the brain performed without and with 14 cc of Clariscan IV contrast. Sequences include axial DWI, ADC map, axial gradient echo, axial T2, axial FLAIR, axial T1, axial T1 post IV contrast, coronal T1 fat-sat post IV contrast, and sagittal T1 post IV contrast. COMPARISON: MRI of the brain with and without contrast dated 01/20/2019. FINDINGS: There is no evidence of acute cerebral infarct, intracranial hemorrhage, or gross mass effect. There is no abnormal IV contrast enhancement. The brain parenchymal volume appears appropriate for patient's age. There is normal meier-white matter distinction. There is no significant midline shift or herniation. The visualized [place] vascular structures are unremarkable. The pituitary gland, sella, and suprasellar regions are unremarkable as visualized. There is no evidence of hydrocephalus. The basal cisterns are unremarkable. The skull, extracranial soft tissue, and orbits are unremarkable. There is mild mucosal thickening involving the left maxillary sinus. Temporal bones show no significant abnormality. IMPRESSION: There is mild left maxillary sinus disease; otherwise, unremarkable MRI of the brain. There is no evidence of a demyelinating process. Dictated by: Dictated on workstation # [id number]
== END ==
LOC: RAD 07:59
PROVIDERS: ATTEND Nurse Practitioner Family
DX: J32.0 Chronic maxillary sinusitis (principal); M50.322 Other cervical disc degeneration at C5-C6 level; M48.02 Spinal stenosis, cervical region
CPT/HCPCS: 70553; 72156